=== PATIENT | male | born 1930 | race Caucasian/White ===

== ENCOUNTER 2018-04-06 20:30 | Emergency (ER) | payer MEDICARE, OTHER ==
[2018-04-06 21:23] LABS: ABSOLUTE BASOPHILS # (AUTO) 0.1 10^3/uL (0.0-0.2); ABSOLUTE EOSINOPHILS # (AUTO) 0.5 10^3/uL (0.0-0.6); ABSOLUTE LYMPHOCYTES (AUTO) 1.5 10^3/uL (0.5-4.7); ABSOLUTE MONOCYTES (AUTO) 0.8 10^3/uL (0.1-1.4); ABSOLUTE NEUT (AUTO) 5.8 10^3/uL (1.7-8.2); BASOPHILS % (AUTO) 0.6 % (0-2); EOSINOPHILS % (AUTO) 5.8 % (0-6); HEMOGLOBIN 12.7 g/dL (13.5-17.0); LYMPHOCYTES % (AUTO) 17.6 % (13-45); MEAN CORPUSCULAR HEMOGLOBIN 30.9 pg (27.0-33.4); MEAN CORPUSCULAR HGB CONC 34.5 g/dL (32.0-36.0); MEAN CORPUSCULAR VOLUME 90 fl (80-97); MONOCYTES % (AUTO) 9.6 % (3-13); PLATELET COUNT 155 10^3/uL (150-450); RED BLOOD COUNT 4.12 10^6/uL (4.35-5.55); RED CELL DISTRIBUTION WIDTH 13.7 % (11.5-14.0); SEGMENTED NEUTROPHILS % (AUTO) 66.4 % (42-78); TOTAL CELLS COUNTED % (AUTO) 100 %; WHITE BLOOD COUNT 8.7 10^3/uL (4.0-10.5)
[2018-04-06 21:40] LABS: ANION GAP 11 (5-19); BLOOD UREA NITROGEN 25 mg/dL (7-20); CALCIUM 9.5 mg/dL (8.4-10.2); CARBON DIOXIDE 31 mmol/L (22-30); CHLORIDE 100 mmol/L (98-107); GLUCOSE 183 mg/dL (75-110); POTASSIUM 3.4 mmol/L (3.6-5.0); SODIUM 141.9 mmol/L (137-145)
[2018-04-06 22:03] LABS: ERYTHROCYTE SEDIMENTATION RATE 38 mm/hr (0-20)
--- NOTE | 2018-04-06 22:04 | RADIOLOGY REPORT (SQ) ---
EXAM DESCRIPTION: CT HEAD WITHOUT IV CONTRAST COMPLETED DATE/TME: 04/06/2018 21:04 CLINICAL HISTORY: 87 years, Male, headache COMPARISON: None. TECHNIQUE: 196 Images stored on PACS. All CT scanners at this facility use dose modulation, iterative reconstruction, and/or weight based dosing when appropriate to reduce radiation dose to as low as reasonably achievable (ALARA). [facility]: Dose Right [facility]: CareDose [facility]: Dose Right [facility]: Teradose 4D [facility]: [employer] LIMITATIONS: None. FINDINGS: The globes are intact. Paranasal sinuses and mastoid air cells are unremarkable. No displaced or depressed skull fracture. No intra or extra-axial hemorrhage. CT is limited for evaluation of acute infarct. No CT evidence for large or territorial acute infarct. Diffuse atrophy with small vessel ischemic change. No mass or midline shift IMPRESSION: Atrophy. Small vessel ischemic change. TECHNICAL DOCUMENTATION: Quality ID # 436: Final reports with documentation of one or more dose reduction techniques (e.g., Automated exposure control, adjustment of the mA and/or kV according to patient size, use of iterative reconstruction technique) copyright 2011 [employer]- All Rights Reserved
[2018-04-06] MEDS ORDERED: KETOROLAC TROMETHAMINE INJ/PF 30 MG/1 ML SDV ONE (22:20)
[2018-04-06] MEDS ORDERED: METOCLOPRAMIDE HCL INJ/PF 10 MG/2 ML SDV ONE (22:20)
[2018-04-06] MEDS ORDERED: METOCLOPRAMIDE HCL INJ/PF 10 MG/2 ML SDV IV ONE (22:54)
[2018-04-06] MEDS ORDERED: KETOROLAC TROMETHAMINE INJ/PF 30 MG/1 ML SDV IV ONE (22:54)
[2018-04-06] MEDS ORDERED: PREDNISONE 20 MG TABLET PO ONE (22:54)
--- NOTE | 2018-04-06 22:55 | ER Document Report ---
ED General - General Chief Complaint: Headache >24 hrs old Stated Complaint: HEADACHE Time Seen by Provider: 04/06/18 21:03 Primary Care Provider: DALIA PITTS MD [Primary Care Provider] - 04/08/18 Notes: Patient is an 87-year-old male with a past medical history of dementia, hypertension, atrial fibrillation, presents complaining of 2-3 days of progressively worsening pain to the right side of his head as well as associated blurring of vision. Symptoms started gradually, have been progressively worsening over that period of time. Nothing seems to improve or worsen the patient's symptoms. He has not seen his general physician regarding today's concerns. No history of similar symptoms in the past. Pain is described as a stabbing, aching, severe pain to the right temporal area of his scalp. TRAVEL OUTSIDE OF THE [place] IN LAST 30 DAYS: No - Related Data Allergies/Adverse Reactions: No Known Allergies Allergy (Verified 03/24/13 11:41) Past Medical History - General Information source: Patient, Relative - Social History Smoking Status: Never Smoker Frequency of alcohol use: None Drug Abuse: None Lives with: Family Family History: Reviewed & Not Pertinent Patient has suicidal ideation: No Patient has homicidal ideation: No - Past Medical History Cardiac Medical History: Reports: Hx Heart Attack, Hx Hypertension Endocrine Medical History: Reports: Hx Diabetes Mellitus Type 2 Renal/ Medical History: Denies: Hx Peritoneal Dialysis Past Surgical History: Reports: Hx Cardiac Catheterization, Hx Cardiac Surgery - Immunizations Hx Diphtheria, Pertussis, Tetanus Vaccination: Yes Hx Pneumococcal Vaccination: 09/12/10 Review of Systems - Review of Systems Notes: Constitutional: Negative for fever. HENT: Negative for sore throat. Eyes: Positive for blurring vision of the right eye. Cardiovascular: Negative for chest pain. Respiratory: Negative for shortness of breath. Gastrointestinal: Negative for abdominal pain, vomiting or diarrhea. Genitourinary: Negative for dysuria. Musculoskeletal: Negative for back pain. Skin: Negative for rash. Neurological: Positive for headache 10 point ROS negative except as marked above and in HPI. Physical Exam - Vital signs Vitals: Temp Pulse Ox 98.2 F 97 04/06/18 20:56 04/06/18 20:56 Interpretation: Normal Notes: PHYSICAL EXAMINATION: GENERAL: Appears moderately uncomfortable but in no acute distress HEAD: Atraumatic, normocephalic. EYES: Pupils equal round and reactive to light, extraocular movements intact, sclera anicteric, conjunctiva are normal. ENT: nares patent, oropharynx clear without exudates. Moist mucous membranes. NECK: Normal range of motion, supple without lymphadenopathy LUNGS: Breath sounds clear to auscultation bilaterally and equal. No wheezes rales or rhonchi. HEART: Irregularly irregular rate and rhythm without murmurs ABDOMEN: Soft, nontender, normoactive bowel sounds. No guarding, no rebound. No masses appreciated. EXTREMITIES: Normal range of motion, no pitting or edema. No cyanosis. NEUROLOGICAL: Face symmetric. Tongue protrudes midline. Extraocular motions intact. Pupils are 2 mm and equally reactive. Normal speech. 5 out of 5 strength in both the distal and proximal upper and lower extremities bilaterally. Sensation is grossly intact throughout. Finger to nose testing normal. Pronator drift normal. PSYCH: Alert, oriented only to person SKIN: Warm, Dry, normal turgor, pain along palpation of the right temporal artery Course - Re-evaluation Re-evalutation: 04/06/18 22:57 Patient presents with signs and symptoms most consistent with acute giant cell arteritis complaining of pain over the right temporal artery with associated blurring of vision of the right eye. ESR is elevated. Patient is at elevated risk given his advanced age. CT the head otherwise unremarkable. He has no focal neurologic deficits on exam. Patient has been started on prednisone, family advised about the probability that his blood sugars will become dramatically elevated while on this medication. At this time will discharge with return precautions and follow-up recommendations. Verbal discharge instructions given a the bedside and opportunity for questions given. Medication warnings reviewed. Patient is in agreement with this plan and has verbalized understanding of return precautions and the need for primary care follow-up in the next 24-72 hours. - Vital Signs Vital signs: Temp Pulse Resp BP Pulse Ox 98.2 F 20 114/88 H 99 04/06/18 23:23 04/06/18 23:01 04/06/18 23:01 04/06/18 23:01 - Laboratory Result Diagrams: 04/06/18 21:10 04/06/18 21:10 Laboratory results interpreted by me: 04/06/18 04/06/18 21:10 21:10 RBC 4.12 L Hgb 12.7 L Hct 37.0 L ESR 38 H Potassium 3.4 L Carbon Dioxide 31 H BUN 25 H Est GFR (Non-Af Amer) 59 L Glucose 183 H C-Reactive Protein 13.0 H - Diagnostic Test Radiology reviewed: Image reviewed, Reports reviewed Radiology results interpreted by me: 04/06/18 22:57 CT head: No acute intracranial bleed or mass Discharge - Discharge Clinical Impression: Temporal giant cell arteritis Headache Qualifiers: Headache type: unspecified Headache chronicity pattern: acute headache Intractability: not intractable Qualified Code(s): R51 - Headache Condition: Good Disposition: HOME, SELF-CARE Additional Instructions: Your symptoms are suggestive of something called temporal arteritis. You need to follow-up with your primary care doctor for consideration of biopsy of the temporal artery for definitive diagnosis. Your being started on steroids. Please take as directed. Be aware that this will raise her blood sugars temporarily while you are on this medication. Please return if you develop worsening headache, worsening of your blurred vision in the right eye, pass out, persistent vomiting, weakness, numbness or any other symptoms that are worrisome to you. Prescriptions: Prednisone [Deltasone 20 mg Tablet] 2 tab PO DAILY 7 Days tablet Referrals: DALIA PITTS MD [Primary Care Provider] - 04/08/18
[2018-04-06 23:23] VITALS: BP 114/88
--- NOTE | 2018-04-07 08:59 | EKG REPORT ---
SEVERITY:- ABNORMAL ECG - ATRIAL FIBRILLATION, V-RATE 55-[address]-T CHANGES , DIFFUSE LEADS : Confirmed by: Paulie Krishna MD 07-Apr-2018 08:58:52
== END 2018-04-06 23:23 | disposition home or self-care (01) ==
LOC: ER 20:30
DX: M31.6 Other giant cell arteritis (principal); R51 Headache; H53.8 Other visual disturbances; I10 Essential (primary) hypertension; E11.9 Type 2 diabetes mellitus without complications
CPT/HCPCS: 93005; 99284; 96374; 96375; 36415; 85025; 85652; 86140; 80048; 70450; 93010; J1885; J2765; A9270; J7512

== ENCOUNTER 2018-04-24 10:43 | Emergency (ER) | payer MEDICARE, OTHER ==
--- NOTE | 2018-04-24 12:15 | RADIOLOGY REPORT (SQ) ---
EXAM DESCRIPTION: CHEST SINGLE VIEW COMPLETED DATE/TIME: 04/24/2018 11:56 am REASON FOR STUDY: Right chest pain and short of breath COMPARISON: None. EXAM PARAMETERS: NUMBER OF VIEWS: One view. TECHNIQUE: Single frontal radiographic view of the chest acquired. RADIATION DOSE: NA LIMITATIONS: None. FINDINGS: LUNGS AND PLEURA: Right lung clear. Left hemidiaphragm and adjacent left base suboptimall y visualized. Unclear whether this is related to technique or pathology at this level. Repeat kg ble chest may be a consideration or PA and lateral if the patient is able MEDIASTINUM AND HILAR STRUCTURES: No masses. Contour normal. HEART AND VASCULAR STRUCTURES: Heart normal in size. Normal vasculature. BONES: No acute findings. HARDWARE: None in the chest. OTHER: No other significant finding. IMPRESSION: No definite abnormality to explain shortness of breath however the left base and hemidia phragm suboptimally visualized. Repeat portable or PA and lateral would be helpful. TECHNICAL DOCUMENTATION: JOB ID: [id number] [employer]- All Rights Reserved Reading location - IP/workstation name: [email or web address]
[2018-04-24 12:20] LABS: ABSOLUTE EOSINOPHILS # (AUTO) 0.2 10^3/uL (0.0-0.6); ABSOLUTE LYMPHOCYTES (AUTO) 2.1 10^3/uL (0.5-4.7); ABSOLUTE MONOCYTES (AUTO) 0.8 10^3/uL (0.1-1.4); ABSOLUTE NEUT (AUTO) 6.6 10^3/uL (1.7-8.2); BASOPHILS % (AUTO) 0.4 % (0-2); HEMATOCRIT 41.3 % (37.9-51.0); HEMOGLOBIN 14.1 g/dL (13.5-17.0); LYMPHOCYTES % (AUTO) 21.4 % (13-45); MEAN CORPUSCULAR HEMOGLOBIN 31.2 pg (27.0-33.4); MEAN CORPUSCULAR HGB CONC 34.3 g/dL (32.0-36.0); MEAN CORPUSCULAR VOLUME 91 fl (80-97); MONOCYTES % (AUTO) 8.3 % (3-13); PLATELET COUNT 136 10^3/uL (150-450); RED BLOOD COUNT 4.54 10^6/uL (4.35-5.55); SEGMENTED NEUTROPHILS % (AUTO) 67.9 % (42-78); TOTAL CELLS COUNTED % (AUTO) 100 %; WHITE BLOOD COUNT 9.7 10^3/uL (4.0-10.5)
[2018-04-24 12:22] LABS: INTERNATIONAL RATION (INR) 1.02; PROTHROMBIN TIME 13.9 SEC (11.4-15.4)
[2018-04-24 12:27] LABS: ALANINE AMINOTRANSFERASE 46 U/L (21-72); ALBUMIN 4.1 g/dL (3.5-5.0); ALKALINE PHOSPHATASE 47 U/L (38-126); ANION GAP 11 (5-19); ASPARTATE AMINO TRANSFERASE 23 U/L (17-59); BILIRUBIN,DIRECT 0.3 mg/dL (0.0-0.4); BLOOD UREA NITROGEN 26 mg/dL (7-20); CALCIUM 9.7 mg/dL (8.4-10.2); CARBON DIOXIDE 30 mmol/L (22-30); CHLORIDE 95 mmol/L (98-107); CREATINE KINASE 33 U/L (55-170); GLUCOSE 192 mg/dL (75-110); POTASSIUM 3.6 mmol/L (3.6-5.0); SODIUM 135.9 mmol/L (137-145); TOTAL PROTEIN 6.4 g/dL (6.3-8.2)
[2018-04-24 12:40] LABS: CREATINE KINASE MB 1.97 ng/mL (<4.55); TROPONIN I < 0.012 ng/mL
--- NOTE | 2018-04-24 13:15 | EKG REPORT ---
SEVERITY:- ABNORMAL ECG - ATRIAL FIBRILLATION NONSPECIFIC ST-T CHANGES DIFFUSE : Confirmed by: Paulie Krishna MD 24-Apr-2018 13:14:27
[2018-04-24 16:05] VITALS: BP 117/77
--- NOTE | 2018-04-24 16:22 | ER Document Report ---
ED General - General Chief Complaint: Tremor Stated Complaint: SHAKING Time Seen by Provider: 04/24/18 11:43 Primary Care Provider: DALIA LAGOS MD [Primary Care Provider] - Follow up as needed Notes: Patient was brought in by rescue squad after having some chest pain with some difficulty breathing. He was at the office of Dr. Li, a local order processing manager, ceo and founder when he had the pain. He says that the pain just "hit me". He has nitroglycerin tablets and took warned that it seemed to resolve the chest pain, but he was sent here anyway. Patient has been having pain in the right side of his head for a couple of weeks. He was seen here on April 13 and felt to have a giant cell arteritis and was followed up by his primary care physician, Dr. Lagos, who referred the patient to see Dr. Li. Dr. Li's notes indicate that he was in agreement that the patient had a right temporal giant cell arteritis and continued the patient on his 20 mg of prednisone daily. Patient has been on nitroglycerin for chest pains for many years. Seldom takes them. TRAVEL OUTSIDE OF THE [place] IN LAST 30 DAYS: No - Related Data Allergies/Adverse Reactions: No Known Allergies Allergy (Verified 03/24/13 11:41) Past Medical History - Social History Smoking Status: Never Smoker Family History: Reviewed & Not Pertinent Patient has suicidal ideation: No Patient has homicidal ideation: No - Past Medical History Cardiac Medical History: Reports: Hx Atrial Fibrillation - On Eliquis., Hx Heart Attack, Hx Hypertension, Other - CABG and stents Neurological Medical History: Reports: Other - Dementia. Endocrine Medical History: Reports: Hx Diabetes Mellitus Type 2 Past Surgical History: Reports: Hx Cardiac Catheterization, Hx Cardiac Surgery - Immunizations Hx Diphtheria, Pertussis, Tetanus Vaccination: Yes Hx Pneumococcal Vaccination: 09/12/10 Review of Systems - Review of Systems Notes: REVIEW OF SYSTEMS: CONSTITUTIONAL : Denies fever. EENT: Denies eye, ear, nose or mouth or throat pain or other symptoms. CARDIOVASCULAR: See HPI. RESPIRATORY: Denies cough, chest congestion, but had some temporary shortness of breath. GASTROINTESTINAL: Denies abdominal pain or nausea, vomiting, or diarrhea. GENITOURINARY: Denies difficulty or painful urinating, urinary frequency, blood in urine. MUSCULOSKELETAL: Denies back or neck pain. Denies joint pain or swelling. SKIN: Denies rash or skin lesions. NEUROLOGICAL: Denies LOC. Is hard of hearing and also has some degree of dementia. Has had a right-sided headache see HPI. Denies sensory loss or motor deficits. ALL OTHER SYSTEMS REVIEWED AND NEGATIVE. Physical Exam - Vital signs Vitals: Resp BP Pulse Ox 15 121/66 100 04/24/18 11:09 04/24/18 11:09 04/24/18 11:09 Interpretation: Normal Notes: PHYSICAL EXAMINATION: GENERAL: Well-appearing, in no acute distress. Awake and alert. Hard of hearing. Seems to be a little bit confused and probably has some degree of dementia. HEAD: Atraumatic, normocephalic. EYES: Pupils equal round and reactive to light, extraocular movements intact. ENT: oropharynx clear without exudates. Moist mucous membranes. NECK: Normal range of motion, supple. LUNGS: Breath sounds clear and equal bilaterally. HEART: Regular rate and rhythm without murmurs. Does not have any chest pain at this time. ABDOMEN: Soft, nontender. No guarding or rebound. No masses. BACK: No tenderness throughout entire back. EXTREMITIES: Normal range of motion without pain. NEUROLOGICAL: Normal speech, gait not tested. Normal sensory, motor, and reflex exams. Awake, alert, not sure if oriented appropriately. PSYCH: Normal mood, normal affect. SKIN: Warm, dry, no rashes. Course - Re-evaluation Re-evalutation: 04/24/18 19:09 Patient remained asymptomatic throughout his stay in the department. I did 2 sets of troponins, both of them negative. I do not think this patient's chest pain was cardiac, but even if so, he does not have any apparent injury to the myocardium. - Vital Signs Vital signs: Temp Pulse Resp BP Pulse Ox 97.3 F 18 117/77 96 04/24/18 11:17 04/24/18 16:00 04/24/18 16:00 04/24/18 16:00 - Laboratory Result Diagrams: 04/24/18 11:10 04/24/18 11:10 Laboratory results interpreted by me: 04/24/18 04/24/18 11:10 11:10 Plt Count 136 L Sodium 135.9 L Chloride 95 L BUN 26 H Glucose 192 H Creatine Kinase 33 L - EKG Interpretation by Me Rate: Normal Rhythm: A.Fib Additional EKG results interpreted by me: 04/24/18 19:[address] changes. No acute changes. Discharge - Discharge Clinical Impression: Chest pain, Head pain, Atrial fibrillation Condition: Stable Disposition: HOME, SELF-CARE Additional Instructions: CHEST PAIN OF UNCLEAR CAUSE: The exact cause of your chest pain isn't clear. Fortunately, there is no evidence of a dangerous medical condition. Further testing may be required to find the source of the pain. Most often, we find that this pain is coming from the chest wall -- the muscles or rib joints in the chest. But chest pain can come from the lung and lung lining, the esophagus, the heart valves or heart lining, and even the stomach or gallbladder. Rest. Eat lightly until the pain is gone. We may prescribe medicine for pain and inflammation. You should call the physician immediately if the pain radiates to the shoulder, jaw or arms; if you start to run a fever or develop a cough; or if you develop shortness of breath, or other new or alarming symptoms. NORMAL EXAM AND WORKUP: At this time, your examination and workup show no significant abnormality. No significant abnormal physical findings were noted. All laboratory, EKG, and imaging (x-ray, CT scans, ultrasound) studies that were ordered show no significant abnormality. Although your examination and all studies that were ordered showed no significant abnormal finding, there are no examinations and no studies that are 100% accurate. There is always the possibility that some abnormality could exist and not be detected with physical examination or within the limits and capabilities of laboratory and other studies. You should return or follow up as you were instructed on your visit today for further evaluation if your symptoms do not resolve. ANGINA EPISODE: Your physician has diagnosed the pain you experienced as an episode of angina. Angina occurs when a portion of the heart muscle temporarily lacks oxygen. It does not cause any permanent heart damage, but serves as a warning. Hospitalization is not necessary now. Evaluation of your cardiac condition, and medical therapy for angina will be necessary. It's important you be sure to keep all appointments and take medication exactly as prescribed. Angina is usually treated with a type of "nitrate" medication. This is available as ointment, pills, or sublingual (under the tongue) tablets. Depending on your clinical situation, other medications may be added to help control angina. These may include beta blockers or calcium blockers. If episodes of angina are occurring with increased frequency, or if chest pain lasts longer than 15 minutes or does not respond to nitroglycerin, you must seek emergency medical care immediately. NITRATES: Nitroglycerin and related longer-acting nitrate medications are used to prevent or treat attacks of angina. These medicines dilate blood vessels, decreasing the work of the heart, and improving its supply of oxygen. Many different forms are available, including sublingual tablets (used under the tongue), sprays, skin patches, and long-acting pills. If the particular form of medication you have been given is not working well for you, contact your doctor. Long-acting forms: Take exactly as prescribed. Sudden stopping of medication can provoke increased attacks. Sublingual tabs or spray: A headache will usually occur with use. Sit or lie while waiting for the pain to go away. If angina doesn't respond to three doses (five minutes apart), call for emergency assistance. FOLLOW-UP CARE: If you have been referred to a physician for follow-up care, call the physicians office for an appointment as you were instructed or within the next two days. If you experience worsening or a significant change in your symptoms, notify the physician immediately or return to the Emergency Department at any time for re-evaluation. Referrals: DALIA LAGOS MD [Primary Care Provider] - Follow up as needed
== END 2018-04-24 16:32 | disposition home or self-care (01) ==
LOC: ER 10:43
DX: R07.9 Chest pain, unspecified (principal); M31.6 Other giant cell arteritis; R06.02 Shortness of breath; I48.91 Unspecified atrial fibrillation; R51 Headache; I10 Essential (primary) hypertension; I25.2 Old myocardial infarction; E11.9 Type 2 diabetes mellitus without complications; Z95.5 Presence of coronary angioplasty implant and graft; Z95.1 Presence of aortocoronary bypass graft
CPT/HCPCS: 36415; 71045; 80053; 82550; 82553; 84484; 85025; 85610; 93005; 93010; 99285

== ENCOUNTER 2018-05-08 09:58 | Observation (INO) | payer MEDICARE, OTHER ==
[2018-05-08 10:45] LABS: ABSOLUTE LYMPHOCYTES (AUTO) 0.5 10^3/uL (0.5-4.7); ABSOLUTE MONOCYTES (AUTO) 0.6 10^3/uL (0.1-1.4); ABSOLUTE NEUT (AUTO) 5.7 10^3/uL (1.7-8.2); BASOPHILS % (AUTO) 0.1 % (0-2); EOSINOPHILS % (AUTO) 0.3 % (0-6); HEMATOCRIT 44.1 % (37.9-51.0); HEMOGLOBIN 15.1 g/dL (13.5-17.0); LYMPHOCYTES % (AUTO) 6.8 % (13-45); MEAN CORPUSCULAR HEMOGLOBIN 30.8 pg (27.0-33.4); MEAN CORPUSCULAR HGB CONC 34.2 g/dL (32.0-36.0); MEAN CORPUSCULAR VOLUME 90 fl (80-97); MONOCYTES % (AUTO) 8.9 % (3-13); PLATELET COUNT 119 10^3/uL (150-450); SEGMENTED NEUTROPHILS % (AUTO) 83.9 % (42-78); TOTAL CELLS COUNTED % (AUTO) 100 %; WHITE BLOOD COUNT 6.8 10^3/uL (4.0-10.5)
[2018-05-08] MEDS ORDERED: NORMAL SALINE 500 ML IV ONE (10:45)
[2018-05-08 10:49] LABS: INTERNATIONAL RATION (INR) 1.04; PROTHROMBIN TIME 14.1 SEC (11.4-15.4)
--- NOTE | 2018-05-08 10:59 | RADIOLOGY REPORT (SQ) ---
EXAM DESCRIPTION: HIP BILATERAL COMPLETED DATE/TIME: 05/08/2018 10:51 am REASON FOR STUDY: fall COMPARISON: None. NUMBER OF VIEWS: Two views TECHNIQUE: AP pelvis and additional frog-leg view of both hips. LIMITATIONS: None. FINDINGS: MINERALIZATION: Normal. HIPS: No acute fracture or dislocation. Joint space narrowing with sclerosis and small osteophytes. No worrisome bone lesions. PELVIS AND SACRUM: No acute fracture or dislocation. No worrisome bone lesions. PUBIS AND ISCHIUM: No acute fracture. LOWER LUMBAR SPINE: Degenerative changes. No acute findings as visualized. SOFT TISSUES: No findings. OTHER: No other significant finding. IMPRESSION: DEGENERATIVE CHANGES IN THE HIPS. NO ACUTE TRAUMATIC FINDINGS. TECHNICAL DOCUMENTATION: JOB ID: [id number] [employer]- All Rights Reserved Reading location - IP/workstation name: [email or web address]
[2018-05-08 11:00] LABS: ALANINE AMINOTRANSFERASE 32 U/L (21-72); ALBUMIN 4.2 g/dL (3.5-5.0); ALKALINE PHOSPHATASE 49 U/L (38-126); ANION GAP 11 (5-19); ASPARTATE AMINO TRANSFERASE 24 U/L (17-59); BILIRUBIN,DIRECT 0.5 mg/dL (0.0-0.4); BILIRUBIN,TOTAL 1.4 mg/dL (0.2-1.3); BLOOD UREA NITROGEN 27 mg/dL (7-20); CALCIUM 10.2 mg/dL (8.4-10.2); CARBON DIOXIDE 31 mmol/L (22-30); CHLORIDE 96 mmol/L (98-107); CREATINE KINASE 43 U/L (55-170); GLUCOSE 255 mg/dL (75-110); LIPASE 118.4 U/L (23-300); POTASSIUM 3.9 mmol/L (3.6-5.0); SODIUM 138.4 mmol/L (137-145)
--- NOTE | 2018-05-08 11:07 | RADIOLOGY REPORT (SQ) ---
EXAM DESCRIPTION: CT HEAD WITHOUT COMPLETED DATE/TIME: 05/08/2018 10:56 am REASON FOR STUDY: fall COMPARISON: 04/06/2018 TECHNIQUE: Axial images acquired through the brain without intravenous contrast. Images reviewed wi th bone, brain and subdural windows. Additional sagittal and coronal reconstructions were generated. Images stored on PACS. All CT scanners at this facility use dose modulation, iterative reconstruction, and/or weight based d osing when appropriate to reduce radiation dose to as low as reasonably achievable (ALARA). [facility]: Dose Right [facility]: CareDose [facility]: Dose Right [facility]: Teradose 4D [facility]: [email or web address] RADIATION DOSE: CT Rad equipment meets quality standard of care and radiation dose reduction techniq ues were employed. CTDIvol: 53.2 mGy. DLP: 1097 mGy-cm. mGy. LIMITATIONS: None. FINDINGS: VENTRICLES: Normal size and contour. CEREBRUM: No masses. No hemorrhage. No midline shift. No evidence for acute infarction. Few scatte red areas of low density in the white matter most likely chronic small vessel ischemic changes. CEREBELLUM: No masses. No hemorrhage. No alteration of density. No evidence for acute infarction. EXTRAAXIAL SPACES: No fluid collections. No masses. ORBITS AND GLOBE: No intra- or extraconal masses. Normal contour of globe without masses. CALVARIUM: No fracture. PARANASAL SINUSES: There is new mucosal thickening and air-fluid level of the left maxillary sinus an d ethmoid air cells. SOFT TISSUES: No mass or hematoma. OTHER: No other significant finding. IMPRESSION: 1. No acute intracranial pathology. Small vessel white matter disease. 2. There is new mucosal thickening and air-fluid level of the left maxillary sinus and ethmoid air ce lls. Correlate for evidence of acute sinusitis, trauma less likely. EVIDENCE OF ACUTE STROKE: NO. COMMENT: Quality ID # 436: Final reports with documentation of one or more dose reduction techniques (e.g., Automated exposure control, adjustment of the mA and/or kV according to patient size, use of iterative reconstruction technique) TECHNICAL DOCUMENTATION: JOB ID: [id number] [employer]- All Rights Reserved Reading location - IP/workstation name: [email or web address]
--- NOTE | 2018-05-08 11:09 | RADIOLOGY REPORT (SQ) ---
EXAM DESCRIPTION: CHEST SINGLE VIEW COMPLETED DATE/TIME: 05/08/2018 11:00 am REASON FOR STUDY: sob COMPARISON: Chest films 04/24/2018, 03/24/2013 CT chest 04/28/2007 EXAM PARAMETERS: NUMBER OF VIEWS: One view. TECHNIQUE: Single frontal radiographic view of the chest acquired. RADIATION DOSE: NA LIMITATIONS: None. FINDINGS: LUNGS AND PLEURA: No opacities, masses or pneumothorax. No pleural effusion. MEDIASTINUM AND HILAR STRUCTURES: No masses. Contour normal. HEART AND VASCULAR STRUCTURES: No cardiomegaly. Old sternotomy for CABG. BONES: No acute findings. HARDWARE: None in the chest. OTHER: Question old shrapnel over the anterior right 5th rib IMPRESSION: Old sternotomy for CABG. No acute findings TECHNICAL DOCUMENTATION: JOB ID: [id number] [employer]- All Rights Reserved Reading location - IP/workstation name: [email or web address]
[2018-05-08 11:10] LABS: CREATINE KINASE MB 0.7 ng/mL (<4.55); TROPONIN I 0.02 ng/mL
[2018-05-08] MEDS ORDERED: NORMAL SALINE 1000 ML 1,000 ML IV ONE (11:52)
[2018-05-08 12:22] LABS: APPEARANCE,URINE CLEAR; BILIRUBIN,URINE NEGATIVE (NEGATIVE); COLOR,URINE YELLOW; GLUCOSE, URINE >=500 mg/dL (NEGATIVE); KETONES,URINE TRACE mg/dL (NEGATIVE); LEUKOCYTE ESTERASE,URINE NEGATIVE (NEGATIVE); NITRITE,URINE NEGATIVE (NEGATIVE); PROTEIN,URINE 100 mg/dL (NEGATIVE); URINE SPECIFIC GRAVITY 1.023
[2018-05-08] MEDS ORDERED: METOPROLOL TARTRATE 50 MG TABLET PO ONE (13:17)
[2018-05-08] MEDS ORDERED: CLONIDINE HCL 0.1 MG TABLET PO ONE (13:17)
--- NOTE | 2018-05-08 13:17 | ER Document Report ---
ED General - General Chief Complaint: Fall Stated Complaint: WEAKNESS Time Seen by Provider: 05/08/18 10:09 Primary Care Provider: DALIA PITTS MD [Primary Care Provider] - Follow up as needed TRAVEL OUTSIDE OF THE [place] IN LAST 30 DAYS: No - HPI Patient complains to provider of: Fall weakness Notes: Patient coming in for evaluation of fall and weakness. Patient is very hard of hearing most of the HPI is obtained from his who later presents. states over the last month she is noticed increased weakness and cognitive decline worse in the last week. 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 States that he has followed up with a neurologist however no biopsy or other definitive testing for temporal arteritis was performed. Patient has continued on prednisone since that time. Patient is currently on 20 mg of prednisone daily. states that this morning patient fell down on the bathroom and she could not get him up nor could the patient get up himself. States that the patient does have a walker and cane at home. Otherwise denies fevers chills nausea vomiting diarrhea. Patient has been compliant with his medications. - Related Data Allergies/Adverse Reactions: No Known Allergies Allergy (Verified 03/24/13 11:41) Past Medical History - Social History Smoking Status: Never Smoker Drug Abuse: None Family History: Reviewed & Not Pertinent Patient has suicidal ideation: No Patient has homicidal ideation: No - Past Medical History Cardiac Medical History: Reports: Hx Atrial Fibrillation - On Eliquis., Hx Heart Attack, Hx Hypertension Endocrine Medical History: Reports: Hx Diabetes Mellitus Type 2 Renal/ Medical History: Denies: Hx Peritoneal Dialysis Past Surgical History: Reports: Hx Cardiac Catheterization, Hx Cardiac Surgery - Immunizations Hx Diphtheria, Pertussis, Tetanus Vaccination: Yes Hx Pneumococcal Vaccination: 09/12/10 Review of Systems - Review of Systems Constitutional: Weakness EENT: No symptoms reported Cardiovascular: No symptoms reported Respiratory: No symptoms reported Gastrointestinal: No symptoms reported Genitourinary: No symptoms reported Male Genitourinary: No symptoms reported Musculoskeletal: No symptoms reported Skin: No symptoms reported Hematologic/Lymphatic: No symptoms reported Neurological/Psychological: Other - Change in mental status -: Yes All other systems reviewed and negative Physical Exam - Vital signs Vitals: Resp Pulse Ox 20 95 05/08/18 10:17 05/08/18 10:17 Interpretation: Normal - General General appearance: Appears well, Alert - HEENT Head: Normocephalic, Atraumatic Eyes: Normal Pupils: PERRL - Respiratory Respiratory status: No respiratory distress Chest status: Nontender Breath sounds: Normal Chest palpation: Normal - Cardiovascular Rhythm: Regular Heart sounds: Normal auscultation Murmur: No - Abdominal Inspection: Normal Distension: No distension Bowel sounds: Normal Tenderness: Nontender Organomegaly: No organomegaly - Back Back: Normal, Nontender - Extremities General upper extremity: Normal inspection, Nontender, Normal color, Normal ROM, Normal temperature General lower extremity: Normal inspection, Nontender, Normal color, Normal ROM, Normal temperature, Normal weight bearing. No: Lexi's sign - Neurological Neuro grossly intact: Yes Cognition: Normal Orientation: AAOx4 Rosman Coma Scale Eye Opening: Spontaneous Rosman Coma Scale Verbal: Oriented Rosman Coma Scale Motor: Obeys Commands Suzanne Coma Scale Total: 15 Speech: Normal Motor strength normal: LUE, RUE, LLE, RLE Sensory: Normal - Psychological Associated symptoms: Normal affect, Normal mood - Skin Skin Temperature: Warm Skin Moisture: Dry Skin Color: Normal Course - Vital Signs Vital signs: Temp Pulse Resp BP Pulse Ox 98.4 F 28 H 152/104 H 93 05/08/18 13:01 05/08/18 13:01 05/08/18 13:01 05/08/18 13:01 - Laboratory Result Diagrams: 05/08/18 10:20 05/08/18 10:20 Laboratory results interpreted by me: 05/08/18 05/08/18 05/08/18 10:20 10:20 10:20 Plt Count 119 L Seg Neutrophils % 83.9 H Lymphocytes % 6.8 L Chloride 96 L Carbon Dioxide 31 H BUN 27 H Glucose 255 H Lactic Acid 2.9 H Total Bilirubin 1.4 H Direct Bilirubin 0.5 H Creatine Kinase 43 L Urine Protein Urine Glucose (UA) Urine Ketones Urine Blood Urine Urobilinogen 05/08/18 11:50 Plt Count Seg Neutrophils % Lymphocytes % Chloride Carbon Dioxide BUN Glucose Lactic Acid Total Bilirubin Direct Bilirubin Creatine Kinase Urine Protein 100 H Urine Glucose (UA) >=500 H Urine Ketones TRACE H Urine Blood SMALL H Urine Urobilinogen 2.0 H Discharge - Discharge Clinical Impression: Recent diagnosis of temporal arteritis, Hypertensive urgency, CAD status post coronary bypass graft, Debility and deconditioning Type 2 diabetes mellitus Qualifiers: Diabetes mellitus longterm insulin use: without longterm use Diabetes mellitus complication status: without complication Qualified Code(s): E11.9 - Type 2 diabetes mellitus without complications Condition: Good Disposition: HOME, SELF-CARE Referrals: DALIA PITTS MD [Primary Care Provider] - Follow up as needed
--- NOTE | 2018-05-08 13:54 | PDOC H&P ---
History of Present Illness Admission Date/PCP: DALIA PITTS MD History of Present Illness: CAMPOS ALVAREZ is a 87 year old male patient with past medical history of coronary artery disease status post coronary artery bypass graft, hypertension, hyperlipidemia, type 2 diabetes mellitus and deafness presents with chief complaint of physical and mental declining and fall. Since patient is hard of hearing brief history is obtained verbally from the ER attending. Nobody in his room during my encounter. Per ER attending patient declining and is functional capacity as well as mentally. On April 06, 2018 patient had visited [facility] ER for headache and they are attending at that time diagnosed the patient with temporal arteritis is doing ESR of 38 and patient started on p.o. prednisolone. No temporal artery biopsy done. Patient is being followed up by neurologist. There is no report of fever, chills, chest pain. No headache or blurry vision. He CT scan of the head is negative. Further detailed history and review of system is unobtainable. Past Medical History Cardiac Medical History: Reports: Atrial Fibrillation - On Eliquis., Myocardial Infarction, Hypertension Endocrine Medical History: Reports: Diabetes Mellitus Type 2 Past Surgical History Past Surgical History: Reports: Cardiac Catheterization Social History Smoking Status: Never Smoker Frequency of Alcohol Use: None Hx Recreational Drug Use: No - Advance Directive Resuscitation Status: Full Code Family History Family History: Reviewed & Not Pertinent Parental Family History Reviewed: Yes Children Family History Reviewed: Yes Sibling(s) Family History Reviewed.: Yes Medication/Allergy Home Medications: Aspirin [Aspirin 325 mg Tablet] 325 mg PO DAILY 03/24/13 Clonidine HCl [Clonidine HCl ER] 0.1 mg PO Q12 03/24/13 Ezetimibe/Simvastatin [Vytorin 10-80 mg Tablet] 1 each PO QHS 03/24/13 Furosemide [Lasix 40 mg Tablet] 40 mg PO QAM 03/24/13 Gabapentin [Neurontin 300 mg Capsule] 300 mg PO BID 03/24/13 Glimepiride [Amaryl] 2 mg PO BID 03/24/13 Guaifenesin [Robitussin Mucus-Chest Congest] 5 ml PO Q4HP PRN 03/24/13 Hydrochlorothiazide 12.5 mg PO DAILY 03/24/13 Isosorbide Mononitrate [Imdur 60 mg Tablet.er] 60 mg PO DAILY 03/24/13 Lisinopril [Zestril] 20 mg PO BID 03/24/13 Metoprolol Tartrate [Lopressor 100 mg Tablet] 100 mg PO Q12 03/24/13 Naproxen Sodium [Aleve] 220 mg PO DAILY PRN 03/24/13 Nitroglycerin 0.4 mg SL PRN PRN 03/24/13 Potassium Chloride 10 meq PO DAILY 03/24/13 Sitagliptin Phos/Metformin HCl [Janumet 50-1,000 mg Tablet] 1 tab PO BID 03/24/13 Telmisartan [Micardis 80 mg Tablet] 80 mg PO DAILY 03/24/13 Prednisone [Deltasone 20 mg Tablet] 2 tab PO DAILY 7 Days tablet 04/06/18 Allergies/Adverse Reactions: No Known Allergies Allergy (Verified 03/24/13 11:41) Review of Systems ROS unobtainable: Other - Severely hard of hearing Physical Exam Vital Signs: Temp Pulse Resp BP Pulse Ox 98.4 F 28 H 152/104 H 93 05/08/18 13:01 05/08/18 13:01 05/08/18 13:01 05/08/18 13:01 Intake & Output 05/07/18 05/08/18 05/09/18 06:59 06:59 06:59 Intake Total 500 Balance 500 Weight 180 kg General appearance: PRESENT: no acute distress Head exam: PRESENT: atraumatic Eye exam: PRESENT: conjunctiva pink Neck exam: ABSENT: carotid bruit, JVD, lymphadenopathy, thyromegaly Respiratory exam: PRESENT: clear to auscultation last. ABSENT: rales, rhonchi, wheezes Cardiovascular exam: PRESENT: RRR. ABSENT: diastolic murmur, rubs, systolic murmur GI/Abdominal exam: PRESENT: normal bowel sounds, soft. ABSENT: distended, guarding, mass, organolmegaly, rebound, tenderness Neurological exam: PRESENT: alert, awake Results Laboratory Results: 05/08/18 10:20 05/08/18 10:20 05/08/18 05/08/18 05/08/18 10:20 10:20 10:20 WBC 6.8 RBC 4.90 Hgb 15.1 Hct 44.1 MCV 90 MCH 30.8 MCHC 34.2 RDW 14.0 Plt Count 119 L Seg Neutrophils % 83.9 H Lymphocytes % 6.8 L Monocytes % 8.9 Eosinophils % 0.3 Basophils % 0.1 Absolute Neutrophils 5.7 Absolute Lymphocytes 0.5 Absolute Monocytes 0.6 Absolute Eosinophils 0.0 Absolute Basophils 0.0 Sodium 138.4 Potassium 3.9 Chloride 96 L Carbon Dioxide 31 H Anion Gap 11 BUN 27 H Creatinine 1.07 Est GFR ( Amer) > 60 Est GFR (Non-Af Amer) > 60 Glucose 255 H Lactic Acid 2.9 H Calcium 10.2 Magnesium 2.0 Total Bilirubin 1.4 H AST 24 ALT 32 Alkaline Phosphatase 49 Total Protein 7.0 Albumin 4.2 Lipase 118.4 Urine Color Urine Appearance Urine pH Ur Specific [place] Urine Protein Urine Glucose (UA) Urine Ketones Urine Blood Urine Nitrite Ur Leukocyte Esterase Urine WBC (Auto) Urine RBC (Auto) 05/08/18 11:50 WBC RBC Hgb Hct MCV MCH MCHC RDW Plt Count Seg Neutrophils % Lymphocytes % Monocytes % Eosinophils % Basophils % Absolute Neutrophils Absolute Lymphocytes Absolute Monocytes Absolute Eosinophils Absolute Basophils Sodium Potassium Chloride Carbon Dioxide Anion Gap BUN Creatinine Est GFR ( Amer) Est GFR (Non-Af Amer) Glucose Lactic Acid Calcium Magnesium Total Bilirubin AST ALT Alkaline Phosphatase Total Protein Albumin Lipase Urine Color YELLOW Urine Appearance CLEAR Urine pH 6.0 Ur Specific [place] 1.023 Urine Protein 100 H Urine Glucose (UA) >=500 H Urine Ketones TRACE H Urine Blood SMALL H Urine Nitrite NEGATIVE Ur Leukocyte Esterase NEGATIVE Urine WBC (Auto) 0 Urine RBC (Auto) 2 05/08/18 05/08/18 10:20 10:20 Creatine Kinase 43 L CK-MB (CK-2) 0.70 Troponin I 0.020 Impressions: Chest X-Ray 05/08/18 10:16 IMPRESSION: Old sternotomy for CABG. No acute findings Head CT 05/08/18 10:16 IMPRESSION: 1. No acute intracranial pathology. Small vessel white matter disease. 2. There is new mucosal thickening and air-fluid level of the left maxillary sinus and ethmoid air cells. Correlate for evidence of acute sinusitis, trauma less likely. EVIDENCE OF ACUTE STROKE: NO. Hip X-Ray 05/08/18 10:16 IMPRESSION: DEGENERATIVE CHANGES IN THE HIPS. NO ACUTE TRAUMATIC FINDINGS. Assessment and Plan - Diagnosis (1) Hypertensive urgency Is this a current diagnosis for this admission?: Yes Plan: Patient did not get his morning dose of antihypertensive agents. He has been on metoprolol and clonidine. We will restart all his medication (2) Debility and deconditioning Is this a current diagnosis for this admission?: Yes Plan: I will consult PT and follow the recommendation. (3) Type 2 diabetes mellitus Is this a current diagnosis for this admission?: Yes Plan: Patient has been on Janumet. I will start him also on sliding scale. (4) Hyperlipidemia Qualifiers: Hyperlipidemia type: unspecified Qualified Code(s): E78.5 - Hyperlipidemia, unspecified Is this a current diagnosis for this admission?: Yes Plan: Continue his home medication. (5) CAD status post coronary bypass graft Is this a current diagnosis for this admission?: Yes Plan: No anginal symptoms. Continue his home medications. (6) Recent diagnosis of temporal arteritis Is this a current diagnosis for this admission?: Yes Plan: Continue his prednisone 40 mg p.o. daily.
[2018-05-08] MEDS ORDERED: PROMETHAZINE HCL 25 MG TABLET PO PRN (13:55)
[2018-05-08] MEDS: PREDNISONE 20 MG TABLET PO SCH (15:02)
[2018-05-08] MEDS: ACETAMINOPHEN 325 MG TABLET PO PRN (15:02)
[2018-05-08] MEDS: DOCUSATE SODIUM 100 MG CAPSULE PO SCH (15:05)
[2018-05-08] MEDS: ENOXAPARIN SODIUM INJ 40 MG/0.4 ML DISP.SYRIN SUBCUT SCH (15:08)
--- NOTE | 2018-05-08 21:26 | EKG REPORT ---
SEVERITY:- ABNORMAL ECG - ATRIAL FIBRILLATION, V-RATE 80-133 LVH WITSECONDARY REPOL ABNRM : Confirmed by: Radha Pena MD 08-May-2018 21:25:59
[2018-05-08] MEDS ORDERED: INSULIN LISPRO 100 UNIT/ML 3 ML VIAL SUBCUT ONE (23:00)
[2018-05-08] MEDS: CLONIDINE HCL 0.1 MG TABLET PO SCH (23:19)
[2018-05-08] MEDS: FAMOTIDINE 20 MG TABLET PO SCH (23:20)
[2018-05-08] MEDS: METOPROLOL TARTRATE 50 MG TABLET PO SCH (23:20)
[2018-05-09] MEDS: ACETAMINOPHEN 325 MG TABLET PO PRN (06:16)
[2018-05-09] MEDS: PREDNISONE 20 MG TABLET PO SCH (10:04)
[2018-05-09] MEDS: CLONIDINE HCL 0.1 MG TABLET PO SCH (10:04)
[2018-05-09] MEDS: DOCUSATE SODIUM 100 MG CAPSULE PO SCH (10:04)
[2018-05-09] MEDS: FAMOTIDINE 20 MG TABLET PO SCH (10:04)
[2018-05-09] MEDS: METOPROLOL TARTRATE 50 MG TABLET PO SCH (10:04)
[2018-05-09] MEDS: ENOXAPARIN SODIUM INJ 40 MG/0.4 ML DISP.SYRIN SUBCUT SCH (10:05)
[2018-05-09] MEDS ORDERED: DEXTROSE 50%-WATER 25 GM/50 ML DISP.SYRIN IV PRN ×2 (11:44)
[2018-05-09] MEDS ORDERED: GLUCAGON,HUMAN RECOMB 1 MG INJ IM PRN (11:44)
[2018-05-09] MEDS ORDERED: DEXTROSE 40% GEL 15 GM TUBE PO PRN ×2 (11:44)
--- NOTE | 2018-05-09 13:44 | PDOC DISCHARGE SUMMARY ---
General - Admit/Disc Date/PCP Admission Date/Primary Care Provider: 05/08/18 15:26 DALIA PITTS MD Discharge Date: 05/09/18 - Discharge Diagnosis (1) CAD status post coronary bypass graft Is this a current diagnosis for this admission?: Yes (2) Debility and deconditioning Is this a current diagnosis for this admission?: Yes (3) Hyperlipidemia Is this a current diagnosis for this admission?: Yes (4) Hypertensive urgency Is this a current diagnosis for this admission?: Yes (5) Recent diagnosis of temporal arteritis Is this a current diagnosis for this admission?: Yes (6) Type 2 diabetes mellitus Is this a current diagnosis for this admission?: Yes - Additional Information Resuscitation Status: Full Code Discharge Diet: Diabetic Discharge Activity: Activity As Tolerated, Balance Activity w/Rest, No Driving Home Medications: Furosemide [Lasix 40 mg Tablet] 40 mg PO QAM 03/24/13 Gabapentin [Neurontin 300 mg Capsule] 300 mg PO Q12 03/24/13 Glimepiride [Amaryl] 2 mg PO Q12 03/24/13 Metoprolol Tartrate [Lopressor 100 mg Tablet] 100 mg PO Q12 03/24/13 Nitroglycerin 0.4 mg SL DAILYP PRN 03/24/13 Sitagliptin Phos/Metformin HCl [Janumet 50-1,000 mg Tablet] 1 tab PO Q12 03/24/13 Apixaban [Eliquis 2.5 mg Tablet] 2.5 mg PO Q12 05/08/18 Brimonidine Tartrate/Timolol [Combigan 0.2%-0.5% Eye Drops] 1 drop OU Q12 05/08/18 Clonidine HCl [Catapres 0.2 mg Tablet] 0.2 mg PO Q12 05/08/18 Cyclosporine 0.05% Oph Emulsio [Restasis 0.05% Oph Emulsion Pf 0.4 ml] 1 drop OU Q12 05/08/18 Donepezil HCl [Aricept] 10 mg PO DAILY 05/08/18 Ezetimibe [Zetia 10 mg Tablet] 10 mg PO DAILY 05/08/18 Isosorbide Mononitrate [Imdur 30 mg Tablet.er] 30 mg PO DAILY 05/08/18 Potassium Chloride [Klor-Con 10 Meq Capsule ER] 10 meq PO DAILY 05/08/18 Prednisone [Deltasone 20 mg Tablet] 20 mg PO DAILY 05/08/18 Simvastatin [Zocor 40 mg Tablet] 40 mg PO QHS 05/08/18 Telmisartan/Hydrochlorothiazid [Telmisartan-Hctz 80-12.5 mg Tb] 1 tab PO DAILY 05/08/18 History of Present Illness Patient complains of: Chest pain History of Present Illness: CAMPOS ALVAREZ is a 87 year old male patient with past medical history of coronary artery disease status post coronary artery bypass graft, hypertension, hyperlipidemia, type 2 diabetes mellitus and deafness presents with chief complaint of physical and mental declining and fall. Since patient is hard of hearing brief history is obtained verbally from the ER attending. Nobody in his room during my encounter. Per ER attending patient declining and is functional capacity as well as mentally. On April 06, 2018 patient had visited [facility] ER for headache and they are attending at that time diagnosed the patient with temporal arteritis is doing ESR of 38 and patient started on p.o. prednisolone. No temporal artery biopsy done. Patient is being followed up by neurologist. There is no report of fever, chills, chest pain. No headache or blurry vision. He CT scan of the head is negative. Further detailed history and review of system is unobtainable. Patient was admitted to the hospitalist service on telemetry. Serial troponins x3 were done. These were all negative. Dr. Worley saw the patient in consult. Patient had undergone a recent stress test and echo within the last 6 months which he had the results. He does not feel patient needs to have the studies repeated. He was noted to have a significantly high blood pressure when he was first admitted. However this is improved with restarting his home medications. He does not recommended increasing dosages. Physical therapy saw the patient in consult. They had recommended short-term rehab versus home health with physical therapy. Was discussed with his . She does not want him to go to rehab at this time. She is agreeable to home physical therapy and nursing. Case management was consulted. This will be arranged. She is also asked for a bedside commode and a shower chair. These will be obtained as well. He will be discharged home with home health care starting tomorrow. Physical Exam Vital Signs: Temp Pulse Resp BP Pulse Ox 98.0 F 86 19 144/74 H 97 05/09/18 11:00 05/09/18 11:00 05/09/18 11:00 05/09/18 11:00 05/09/18 11:00 Intake & Output 05/08/18 05/09/18 05/10/18 06:59 06:59 06:59 Intake Total 1500 1054 Balance 1500 1054 Weight 82.9 kg General appearance: PRESENT: no acute distress, well-developed, well-nourished Head exam: PRESENT: atraumatic, normocephalic Eye exam: PRESENT: conjunctiva pink, EOMI, PERRLA. ABSENT: scleral icterus Ear exam: PRESENT: normal external ear exam Mouth exam: PRESENT: moist, tongue midline Neck exam: ABSENT: carotid bruit, JVD, lymphadenopathy, thyromegaly Respiratory exam: PRESENT: clear to auscultation last. ABSENT: rales, rhonchi, wheezes Cardiovascular exam: PRESENT: RRR. ABSENT: diastolic murmur, rubs, systolic murmur Pulses: PRESENT: normal dorsalis pedis pul Vascular exam: PRESENT: normal capillary refill GI/Abdominal exam: PRESENT: normal bowel sounds, soft. ABSENT: distended, guarding, mass, organolmegaly, rebound, tenderness Rectal exam: PRESENT: deferred Extremities exam: PRESENT: full ROM. ABSENT: calf tenderness, clubbing, pedal edema Neurological exam: PRESENT: alert, awake, oriented to person, oriented to place, oriented to time, CN II-XII grossly intact, other - Extremely hard of hearing.. ABSENT: motor sensory deficit Psychiatric exam: PRESENT: appropriate affect, normal mood. ABSENT: homicidal ideation, suicidal ideation Results Laboratory Results: 05/08/18 10:20 05/08/18 10:20 05/09/18 06:05 TSH 0.24 L 05/08/18 05/08/18 05/08/18 10:20 10:20 18:45 Creatine Kinase 43 L CK-MB (CK-2) 0.70 Troponin I 0.020 0.040 Impressions: Chest X-Ray 05/08/18 10:16 IMPRESSION: Old sternotomy for CABG. No acute findings Head CT 05/08/18 10:16 IMPRESSION: 1. No acute intracranial pathology. Small vessel white matter disease. 2. There is new mucosal thickening and air-fluid level of the left maxillary sinus and ethmoid air cells. Correlate for evidence of acute sinusitis, trauma less likely. EVIDENCE OF ACUTE STROKE: NO. Hip X-Ray 05/08/18 10:16 IMPRESSION: DEGENERATIVE CHANGES IN THE HIPS. NO ACUTE TRAUMATIC FINDINGS. Qualifiers - * PATIENT BEING DISCHARGED WITH ANY OF THE FOLLOWING DIAGNOSIS: No
[2018-05-09 14:34] VITALS: BP 109/58
[2018-05-09] MEDS ORDERED: INSULIN LISPRO 100 UNIT/ML 3 ML VIAL SUBCUT SCH (16:00)
== END 2018-05-09 15:01 | disposition home health service (06) ==
LOC: ER 09:58 → EH 15:26 → 4S 19:46
PROVIDERS: ADMIT Internal Medicine; ATTEND Internal Medicine
DX: R53.81 Other malaise (principal); I25.10 Atherosclerotic heart disease of native coronary artery without angina pectoris; Z95.1 Presence of aortocoronary bypass graft; E78.5 Hyperlipidemia, unspecified; I16.0 Hypertensive urgency; M31.6 Other giant cell arteritis; E11.9 Type 2 diabetes mellitus without complications; I48.91 Unspecified atrial fibrillation; H91.90 Unspecified hearing loss, unspecified ear; M62.81 Muscle weakness (generalized); X58.XXXA Exposure to other specified factors, initial encounter; Y92.002 Bathroom of unspecified non-institutional (private) residence as the place of occurrence of the external cause; Z79.899 Other long term (current) drug therapy; Z79.02 Long term (current) use of antithrombotics/antiplatelets
CPT/HCPCS: 93005; 99285; 96360; 96361; 36415 ×2; 82553; 82962 ×2; 82550; 83605; 83690; 83735; 84443; 85025; 85610; 80053; 81001; 84484; 83036; 71045; 73522; 70450; 93010; 97530; 97116; 97163; G0378 ×3; A9270 ×12; J7030; J7040; J1815; J7512

== ENCOUNTER 2018-07-10 15:15 | Inpatient (IN) | payer MEDICARE, OTHER ==
--- NOTE | 2018-07-10 15:20 | ER Document Report ---
ED General - General Stated Complaint: HYPOTENSION Time Seen by Provider: 07/10/18 15:19 Notes: Patient is a 87-year-old male with history of CAD, hypertension, atrial f ibrillation that presents to the emergency department for chief complaint of low blood pressure, generalized weakness. Patient apparently had a fall around 4 AM in the morning this morning, where his legs gave out from underneath him and he struck the right side of his body into a door frame, and slid down, denies any head injury or neck injury. Per EMS the patient's blood pressure was in the 80s systolic, and per family it was 70/50. He was given 500 mL's of fluid by EMS, his blood sugar was 288. At this time the patient is complaining of pain in his right side, describes it as a 6 out of 10 aching pain. He recently has a new bedsore on his backside, and has had redness in the left leg. He is complaining of some pain in the left leg as well and is tender to touch. He is on blood pr essure medication as well as Lasix for lower extremity edema. Past Medical History: Diabetes mellitus, hypertension, atrial fibrillation, CAD Past Surgical History: CABG Social History: Former smoker, denies current alcohol or drug use, lives alone. Family History: Reviewed and noncontributory for presenting illness Allergies: Reviewed, see documented allergy list. REVIEW OF SYSTEMS: Other than noted above, the 12 point review of systems was reviewed with the patient and were negative, all pertinent findings are included in the HPI. PHYSICAL EXAMINATION: Vital signs reviewed, nursing noted reviewed. GENERAL: Elderly male, no acute distress, hard of hearing HEAD: Atraumatic, normocephalic. EYES: Eyes appear normal, extraocular movements intact, sclera anicteric, conjunctiva are normal. ENT: nares patent, oropharynx clear without exudates. Moist mucous membranes. NECK: Normal range of motion, supple without lymphadenopathy, no midline tenderness LUNGS: Breath sounds clear to auscultation bilaterally and equal. No wheezes rales or rhonchi. Right rib tenderness with palpation, without step-off or crepitus or deformity HEART: Heart rate regular rate, irregular rhythm, no audible murmur ABDOMEN: Soft, nontender, normoactive bowel sounds. No rebound, guarding, or rigidity. No masses appreciated. EXTREMITIES: Left lower extremity noted to be cellulitic, with an open lesion, no active drainage, tender to palpate, with bilateral 1+ edema in the lower extremities. NEUROLOGICAL: No focal neurological deficits. Moves all extremities spontaneously Motor and sensory grossly intact on exam. PSYCH: Normal mood, normal affect. SKIN: Warm, Dry, normal turgor, sacral decubitus ulcer noted. TRAVEL OUTSIDE OF THE [place] IN LAST 30 DAYS: No - Related Data Allergies/Adverse Reactions: No Known Allergies Allergy (Verified 07/10/18 16:47) Past Medical History - Social History Smoking Status: Former Smoker Family History: Reviewed & Not Pertinent - Past Medical History Cardiac Medical History: Reports: Hx Atrial Fibrillation - On Eliquis., Hx Heart Attack, Hx Hypertension Endocrine Medical History: Reports: Hx Diabetes Mellitus Type 2 Renal/ Medical History: Denies: Hx Peritoneal Dialysis Past Surgical History: Reports: Hx Cardiac Catheterization, Hx Cardiac Surgery - Immunizations Hx Diphtheria, Pertussis, Tetanus Vaccination: Yes Hx Pneumococcal Vaccination: 09/12/10 Physical Exam - Vital signs Vitals: Resp BP 14 100/63 07/10/18 15:30 07/10/18 15:30 Course - Re-evaluation Re-evalutation: Patient seen and examined vital signs reviewed. Laboratory data and imaging were ordered as appropriate for the patient's presenting symptoms and complaint, with consideration of any critical or life threatening conditions that may be associated with their obtained history and exam as noted above. Patient was treated with IV fluids a total of 1.5 L Results were reviewed when available and demonstrated elevated lactate of 5.1, chest x-ray and rib films are negative for rib fracture or injury or lung injury. The rest the patient's blood work was essentially unremarkable, did feel that the patient was dehydrated, his blood pressure did improve with IV fluids, do not feel that this patient was septic despite elevated lactate, is likely more from the patient's fall dehydration and hypotension, he did have left lower extremity cellulitis, that was treated with IV vancomycin and Zosyn. The patient was re-evaluated and was stable and improved Evaluation was most consistent with hypotension, elevated lactic acid, dehydration Results were discussed with the patient at this point after careful consideration I feel that that patient should be admitted to the hospital. This was discussed with the patient that it is in the best interest for their care to be admitted for further evaluation and management. Patient agreed with this plan of care. A call was placed to the admitted physician, Dr. Anthony who graciously accepted the patient onto their service. *Note is created using voice recognition software and may contain spelling, syntax or grammatical errors. Microbiology 07/10/18 16:56 Urine Culture - Final Clean Catch Midstream Mixed Urogenital [facility] 07/10/18 07/10/18 07/10/18 15:53 16:56 16:56 WBC 7.7 RBC 3.84 L Hgb 11.8 L Hct 34.7 L MCV 90 MCH 30.8 MCHC 34.1 RDW 14.9 H Plt Count 205 Seg Neutrophils % 66.4 Lymphocytes % 23.3 Monocytes % 8.1 Eosinophils % 1.6 Basophils % 0.6 Absolute Neutrophils 5.1 Absolute Lymphocytes 1.8 Absolute Monocytes 0.6 Absolute Eosinophils 0.1 Absolute Basophils 0.0 PT 15.4 INR 1.16 VBG pH VBG pCO2 VBG HCO3 VBG Base Excess Sodium Potassium Chloride Carbon Dioxide Anion Gap BUN Creatinine Est GFR ( Amer) Est GFR (Non-Af Amer) Glucose POC Glucose 257 H Lactic Acid Calcium Total Bilirubin Direct Bilirubin Neonat Total Bilirubin Neonat Direct Bilirubin Neonat Indirect Bili AST ALT Alkaline Phosphatase Creatine Kinase Troponin I Total Protein Albumin Urine Color Urine Appearance Urine pH Ur Specific [place] Urine Protein Urine Glucose (UA) Urine Ketones Urine Blood Urine Nitrite Urine Bilirubin Urine Urobilinogen Ur Leukocyte Esterase Urine WBC (Auto) Urine RBC (Auto) U Hyaline Cast (Auto) Urine Bacteria (Auto) Squamous Epi Cells Auto Amorphous Sediment Auto Urine Mucus (Auto) Urine Ascorbic Acid 07/10/18 07/10/18 07/10/18 16:56 16:56 16:56 WBC RBC Hgb Hct MCV MCH MCHC RDW Plt Count Seg Neutrophils % Lymphocytes % Monocytes % Eosinophils % Basophils % Absolute Neutrophils Absolute Lymphocytes Absolute Monocytes Absolute Eosinophils Absolute Basophils PT INR VBG pH 7.44 H VBG pCO2 52.8 VBG HCO3 34.8 H VBG Base Excess 8.8 Sodium 135.6 L Potassium 4.8 Chloride 93 L Carbon Dioxide 33 H Anion Gap 10 BUN 29 H Creatinine 1.01 Est GFR ( Amer) > 60 Est GFR (Non-Af Amer) > 60 Glucose 191 H POC Glucose Lactic Acid 5.1 H Calcium 9.6 Total Bilirubin 1.2 Direct Bilirubin 0.3 Neonat Total Bilirubin Not Reportable Neonat Direct Bilirubin Not Reportable Neonat Indirect Bili Not Reportable AST 25 ALT 29 Alkaline Phosphatase 38 Creatine Kinase 38 L Troponin I Total Protein 5.6 L Albumin 3.0 L Urine Color Urine Appearance Urine pH Ur Specific [place] Urine Protein Urine Glucose (UA) Urine Ketones Urine Blood Urine Nitrite Urine Bilirubin Urine Urobilinogen Ur Leukocyte Esterase Urine WBC (Auto) Urine RBC (Auto) U Hyaline Cast (Auto) Urine Bacteria (Auto) Squamous Epi Cells Auto Amorphous Sediment Auto Urine Mucus (Auto) Urine Ascorbic Acid 07/10/18 07/10/18 16:56 16:56 WBC RBC Hgb Hct MCV MCH MCHC RDW Plt Count Seg Neutrophils % Lymphocytes % Monocytes % Eosinophils % Basophils % Absolute Neutrophils Absolute Lymphocytes Absolute Monocytes Absolute Eosinophils Absolute Basophils PT INR VBG pH VBG pCO2 VBG HCO3 VBG Base Excess Sodium Potassium Chloride Carbon Dioxide Anion Gap BUN Creatinine Est GFR ( Amer) Est GFR (Non-Af Amer) Glucose POC Glucose Lactic Acid Calcium Total Bilirubin Direct Bilirubin Neonat Total Bilirubin Neonat Direct Bilirubin Neonat Indirect Bili AST ALT Alkaline Phosphatase Creatine Kinase Troponin I 0.016 Total Protein Albumin Urine Color YELLOW Urine Appearance SLIGHTLY-CLOUDY Urine pH 7.0 Ur Specific [place] 1.007 Urine Protein NEGATIVE Urine Glucose (UA) >=500 H Urine Ketones NEGATIVE Urine Blood NEGATIVE Urine Nitrite NEGATIVE Urine Bilirubin NEGATIVE Urine Urobilinogen NEGATIVE Ur Leukocyte Esterase TRACE H Urine WBC (Auto) 6 Urine RBC (Auto) 1 U Hyaline Cast (Auto) 1 Urine Bacteria (Auto) TRACE Squamous Epi Cells Auto 3 Amorphous Sediment Auto TRACE Urine Mucus (Auto) RARE Urine Ascorbic Acid NEGATIVE Ribs w/Chest X-Ray 07/10/18 15:29 IMPRESSION: 1. No pneumothorax. No displaced rib fracture. 2. 2 curvilinear metallic densities overlie right lateral chest, possibly surgical clips although foreign body is not excluded. Recommend correlation with patient symptoms/ physical exam. - Vital Signs Vital signs: Temp Pulse Resp BP Pulse Ox 98.5 F 87 21 H 102/56 L 98 07/11/18 15:57 07/11/18 15:57 07/11/18 15:57 07/11/18 15:57 07/11/18 15:57 - Laboratory Result Diagrams: 07/11/18 08:27 07/11/18 08:27 Laboratory results interpreted by me: 07/10/18 07/10/1807/10/19 15:53 16:56 16:56 RBC 3.84 L Hgb 11.8 L Hct 34.7 L RDW 14.9 H VBG pH VBG HCO3 Sodium 135.6 L Chloride 93 L Carbon Dioxide 33 H BUN 29 H Glucose 191 H POC Glucose 257 H Lactic Acid Creatine Kinase 38 L Total Protein 5.6 L Albumin 3.0 L Urine Glucose (UA) Ur Leukocyte Esterase 07/10/18 07/10/18 07/10/18 16:56 16:56 16:56 RBC Hgb Hct RDW VBG pH 7.44 H VBG HCO3 34.8 H Sodium Chloride Carbon Dioxide BUN Glucose POC Glucose Lactic Acid 5.1 H Creatine Kinase Total Protein Albumin Urine Glucose (UA) >=500 H Ur Leukocyte Esterase TRACE H Critical Care Note - Critical Care Note Total time excluding time spent on procedures (mins): 35 Comments: Critical care time 35 minutes exclusive from separate billable procedures for a patient requiring complex medical decision making, and high potential for clinical deterioration. The patient was hypotensive requiring fluid resuscitation and close monitoring. Time spent obtaining history from patient or surrogate, discussions with consultants, development of treatment plan with patient or surrogate, evaluation of patient's response to treatment, examination of patient, ordering and performing treatments and interventions, ordering and review of laboratory studies, re-evaluation of patient's condition, ordering and review of radiographic studies and review of old charts Discharge - Discharge Clinical Impression: Dehydration Cellulitis Qualifiers: Site of cellulitis: extremity Site of cellulitis of extremity: lower extremity Laterality: left Qualified Code(s): L03.116 - Cellulitis of left lower limb Hypotension Qualifiers: Hypotension type: unspecified hypotension type Qualified Code(s): I95.9 - Hypotension, unspecified Condition: Stable Disposition: ADMITTED OBSERVATION Admitting Provider: Gabrielle (Hospitalist) Unit Admitted: Telemetry
[2018-07-10] MEDS ORDERED: RINGERS SOLUTION,LACTATED 1,000 ML IV ONE ×2 (15:28→17:58)
[2018-07-10] MEDS ORDERED: FENTANYL CITRATE INJ/PF 100 MCG/2 ML AMPUL IV ONE (15:29)
[2018-07-10] MEDS ORDERED: ONDANSETRON HCL INJ/PF 4 MG/2 ML SDV IV ONE (15:29)
[2018-07-10] MEDS ORDERED: VANCOMYCIN HCL INJ 1000 MG VIAL IV ONE ×2 (15:37→18:15)
[2018-07-10] MEDS ORDERED: PIPERACILLIN/TAZOBACTAM 3.375 GM VIAL IV ONE ×2 (15:38→18:45)
--- NOTE | 2018-07-10 16:33 | RADIOLOGY REPORT (SQ) ---
EXAM DESCRIPTION: RIBS RIGHT W/PA CHEST COMPLETED DATE/TIME: 07/10/2018 4:22 pm REASON FOR STUDY: right rib pain, fall COMPARISON: None. TECHNIQUE: Frontal view of the chest and additional views of the right ribs acquired. NUMBER OF VIEWS: 5 LIMITATIONS: Cardiac leads overlie chest. . FINDINGS: FRONTAL CXR: No pneumothorax. No pleural effusion. No atelectasis or infiltrates. Chron ic interstitial changes. Aortic atherosclerosis. Evidence of prior median sternotomy and CABG. RIBS: No displaced rib fractures. No lytic or blastic bony lesions. OTHER: 2 curvilinear metallic densities overlie right lateral chest measuring 5 mm, possibly surgical clips. IMPRESSION: 1. No pneumothorax. No displaced rib fracture. 2. 2 curvilinear metallic densities overlie right lateral chest, possibly surgical clips although fo reign body is not excluded. Recommend correlation with patient symptoms/ physical exam. COMMENT: SITE OF TRAUMA/COMPLAINT MARKED/STAMP COMPLETED: NO. TECHNICAL DOCUMENTATION: JOB ID: [id number] [employer]- All Rights Reserved Reading location - IP/workstation name: [email or web address]
[2018-07-10 17:25] LABS: VENOUS BLOOD BASE EXCESS 8.8 mmol/L; VENOUS BLOOD HCO3 34.8 mmol/L (20-32); VENOUS BLOOD PCO2 52.8 mmHg (35-63); VENOUS BLOOD PH 7.44 (7.30-7.42)
[2018-07-10 17:26] LABS: ABSOLUTE EOSINOPHILS # (AUTO) 0.1 10^3/uL (0.0-0.6); ABSOLUTE LYMPHOCYTES (AUTO) 1.8 10^3/uL (0.5-4.7); ABSOLUTE MONOCYTES (AUTO) 0.6 10^3/uL (0.1-1.4); ABSOLUTE NEUT (AUTO) 5.1 10^3/uL (1.7-8.2); BASOPHILS % (AUTO) 0.6 % (0-2); EOSINOPHILS % (AUTO) 1.6 % (0-6); HEMATOCRIT 34.7 % (37.9-51.0); HEMOGLOBIN 11.8 g/dL (13.5-17.0); LYMPHOCYTES % (AUTO) 23.3 % (13-45); MEAN CORPUSCULAR HEMOGLOBIN 30.8 pg (27.0-33.4); MEAN CORPUSCULAR HGB CONC 34.1 g/dL (32.0-36.0); MEAN CORPUSCULAR VOLUME 90 fl (80-97); MONOCYTES % (AUTO) 8.1 % (3-13); PLATELET COUNT 205 10^3/uL (150-450); RED BLOOD COUNT 3.84 10^6/uL (4.35-5.55); RED CELL DISTRIBUTION WIDTH 14.9 % (11.5-14.0); SEGMENTED NEUTROPHILS % (AUTO) 66.4 % (42-78); TOTAL CELLS COUNTED % (AUTO) 100 %; WHITE BLOOD COUNT 7.7 10^3/uL (4.0-10.5)
[2018-07-10 17:29] LABS: INTERNATIONAL RATION (INR) 1.16; PROTHROMBIN TIME 15.4 SEC (11.4-15.4)
[2018-07-10 17:43] LABS: ALANINE AMINOTRANSFERASE 29 U/L (21-72); ALKALINE PHOSPHATASE 38 U/L (38-126); ANION GAP 10 (5-19); ASPARTATE AMINO TRANSFERASE 25 U/L (17-59); BILIRUBIN,DIRECT 0.3 mg/dL (0.0-0.4); BILIRUBIN,TOTAL 1.2 mg/dL (0.2-1.3); BLOOD UREA NITROGEN 29 mg/dL (7-20); CALCIUM 9.6 mg/dL (8.4-10.2); CARBON DIOXIDE 33 mmol/L (22-30); CHLORIDE 93 mmol/L (98-107); CREATINE KINASE 38 U/L (55-170); GLUCOSE 191 mg/dL (75-110); POTASSIUM 4.8 mmol/L (3.6-5.0); SODIUM 135.6 mmol/L (137-145); TOTAL PROTEIN 5.6 g/dL (6.3-8.2)
[2018-07-10 18:00] LABS: AMORPHOUS SEDIMENT,URINE TRACE /HPF; APPEARANCE,URINE SLIGHTLY-CLOUDY; BILIRUBIN,URINE NEGATIVE (NEGATIVE); COLOR,URINE YELLOW; GLUCOSE, URINE >=500 mg/dL (NEGATIVE); KETONES,URINE NEGATIVE (NEGATIVE); LEUKOCYTE ESTERASE,URINE TRACE (NEGATIVE); NITRITE,URINE NEGATIVE (NEGATIVE); PROTEIN,URINE NEGATIVE (NEGATIVE); URINE SPECIFIC GRAVITY 1.007; UROBILINOGEN,URINE NEGATIVE mg/dL (<2.0)
[2018-07-10] MEDS ORDERED: NORMAL SALINE 1000 ML 1,000 ML IV PRN (18:39)
[2018-07-10] MEDS ORDERED: ONDANSETRON HCL INJ/PF 4 MG/2 ML SDV IV PRN (18:39)
--- NOTE | 2018-07-10 19:04 | PDOC H&P ---
History of Present Illness Admission Date/PCP: 07/10/18 18:21 Patient complains of: History of fall History of Present Illness: CAMPOS ALVAREZ is a 87 year old male with history of dementia, atrial fibrillation, history of [place] with 2 bypasses, hypertension, diabetes mellitus brought to the emergency room by the family members after a fall. Patient lives independently but close to his son's house they usually watch him to the monitors and they do not know how long the patient is on the floor brought to the emergency room the work-up indicates patient might have WILY and also has a infected decubitus wound on the on the left buttock hypotensive 124 L of IV fl uids are given in the emergency room CK was 38 systolic blood pressure by the EMS and the initial in the ER is 70 blood pressure was improved to 112/74 medical consult was called for admission for possible cellulitis of the left buttock also. Went to evaluate the patient's son was at bedside able to provide little bit of information on examination found to have infected left buttock decubitus ulceration. Patient blood pressure is 03/03/1968. Plan to admit him the hospital for IV hydration and for IV antibiotic therapy and physical therapy. Past Medical History Cardiac Medical History: Reports: Atrial Fibrillation - On Eliquis., Myocardial Infarction, Hypertension Endocrine Medical History: Reports: Diabetes Mellitus Type 2 Past Surgical History Past Surgical History: Reports: Cardiac Catheterization, Other - Bypass twice Social History Information Source: Patient, Relative Lives with: Alone Smoking Status: Never Smoker Frequency of Alcohol Use: None Hx Recreational Drug Use: No Drugs: None Hx Prescription Drug Abuse: No - Advance Directive Resuscitation Status: Full Code Family History Family History: Reviewed & Not Pertinent Parental Family History Reviewed: Yes - With history of coronary artery disease with stent placement, hypertension Children Family History Reviewed: Yes Sibling(s) Family History Reviewed.: Yes Medication/Allergy Allergies/Adverse Reactions: No Known Allergies Allergy (Verified 07/10/18 16:47) Review of Systems Constitutional: PRESENT: fatigue, weakness. ABSENT: fever(s), headache(s) Eyes: ABSENT: visual disturbances Ears: ABSENT: hearing changes Nose, Mouth, and Throat: ABSENT: sore throat Cardiovascular: ABSENT: chest pain, dyspnea on exertion, orthropnea, palpitations Respiratory: ABSENT: dyspnea, hemoptysis Gastrointestinal: ABSENT: hematemesis, hematochezia, nausea, vomiting Genitourinary: ABSENT: dysuria, hematuria Musculoskeletal: ABSENT: joint swelling Integumentary: PRESENT: wounds - Decubitus wound on the left buttock Neurological: PRESENT: dizziness, weakness Psychiatric: ABSENT: anxiety, depression, homidical ideation, suicidal ideation Endocrine: ABSENT: cold intolerance, heat intolerance, polydipsia, polyuria Physical Exam Vital Signs: Temp Pulse Resp BP Pulse Ox 97.9 F 20 112/74 89 L 07/10/18 18:00 07/10/18 18:00 07/10/18 16:01 07/10/18 18:00 Intake & Output 07/09/18 07/10/18 07/11/18 06:59 06:59 06:59 Intake Total 1999 Balance 1999 Weight 84.8 kg General appearance: PRESENT: no acute distress, well-developed, other - Early male in the bed communicating okay hard in hearing has dementia. Head exam: PRESENT: atraumatic Eye exam: PRESENT: PERRLA Mouth exam: PRESENT: moist, tongue midline Neck exam: ABSENT: carotid bruit, JVD, lymphadenopathy, thyromegaly Respiratory exam: PRESENT: decreased breath sounds Cardiovascular exam: PRESENT: irregular rhythm GI/Abdominal exam: PRESENT: normal bowel sounds, soft. ABSENT: distended, guarding, mass, organolmegaly, rebound, tenderness Rectal exam: PRESENT: deferred Extremities exam: PRESENT: full ROM. ABSENT: calf tenderness, clubbing, pedal edema Neurological exam: PRESENT: alert, awake, oriented to person, oriented to place, oriented to time, oriented to situation, CN II-XII grossly intact. ABSENT: motor sensory deficit Psychiatric exam: PRESENT: appropriate affect, normal mood. ABSENT: homicidal ideation, suicidal ideation Skin exam: PRESENT: other - Sacral decubitus wound on the left buttock stage I- II looks infected. Results Laboratory Results: 07/10/18 16:56 07/10/18 16:56 07/10/18 07/10/18 07/10/18 16:56 16:56 16:56 WBC 7.7 RBC 3.84 L Hgb 11.8 L Hct 34.7 L MCV 90 MCH 30.8 MCHC 34.1 RDW 14.9 H Plt Count 205 Seg Neutrophils % 66.4 Lymphocytes % 23.3 Monocytes % 8.1 Eosinophils % 1.6 Basophils % 0.6 Absolute Neutrophils 5.1 Absolute Lymphocytes 1.8 Absolute Monocytes 0.6 Absolute Eosinophils 0.1 Absolute Basophils 0.0 VBG pH VBG pCO2 VBG HCO3 VBG Base Excess Sodium 135.6 L Potassium 4.8 Chloride 93 L Carbon Dioxide 33 H Anion Gap 10 BUN 29 H Creatinine 1.01 Est GFR ( Amer) > 60 Est GFR (Non-Af Amer) > 60 Glucose 191 H Lactic Acid 5.1 H Calcium 9.6 Total Bilirubin 1.2 AST 25 ALT 29 Alkaline Phosphatase 38 Total Protein 5.6 L Albumin 3.0 L Urine Color Urine Appearance Urine pH Ur Specific [place] Urine Protein Urine Glucose (UA) Urine Ketones Urine Blood Urine Nitrite Ur Leukocyte Esterase Urine WBC (Auto) Urine RBC (Auto) 07/10/18 07/10/18 16:56 16:56 WBC RBC Hgb Hct MCV MCH MCHC RDW Plt Count Seg Neutrophils % Lymphocytes % Monocytes % Eosinophils % Basophils % Absolute Neutrophils Absolute Lymphocytes Absolute Monocytes Absolute Eosinophils Absolute Basophils VBG pH 7.44 H VBG pCO2 52.8 VBG HCO3 34.8 H VBG Base Excess 8.8 Sodium Potassium Chloride Carbon Dioxide Anion Gap BUN Creatinine Est GFR ( Amer) Est GFR (Non-Af Amer) Glucose Lactic Acid Calcium Total Bilirubin AST ALT Alkaline Phosphatase Total Protein Albumin Urine Color YELLOW Urine Appearance SLIGHTLY-CLOUDY Urine pH 7.0 Ur Specific [place] 1.007 Urine Protein NEGATIVE Urine Glucose (UA) >=500 H Urine Ketones NEGATIVE Urine Blood NEGATIVE Urine Nitrite NEGATIVE Ur Leukocyte Esterase TRACE H Urine WBC (Auto) 6 Urine RBC (Auto) 1 07/10/18 07/10/18 16:56 16:56 Creatine Kinase 38 L Troponin I 0.016 Impressions: Ribs w/Chest X-Ray 07/10/18 15:29 IMPRESSION: 1. No pneumothorax. No displaced rib fracture. 2. 2 curvilinear metallic densities overlie right lateral chest, possibly surgical clips although foreign body is not excluded. Recommend correlation wit h patient symptoms/ physical exam. Assessment and Plan - Diagnosis (1) Hypotension Is this a current diagnosis for this admission?: Yes Plan: 07/10/2018-patient going to be admitted for hypotension at the time of arrival systolic blood pressure is 70 after giving 1-1/2 L fluids blood pressure is 120/70. Associated with history of fall. Potential most likely secondary to medications he is on 3 antihypertensive at home. To hold home blood pressure medications at this point continue IV fluids normal saline 75 cc/h GI prophylaxis DVT prophylaxis initiated aspiration fall seizure precautions are initiated blood cultures wound cultures urine cultures are requested to start on Zosyn and IV vancomycin. Physical therapy consult was requested. 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 (4) Fall Is this a current diagnosis for this admission?: Yes Plan: 06/13/2018 1 patient came in with history of fall CK is [address] plan to [address] head without contrast aspiration fall seizure precautions are requested PT consult was requested. (5) Atrial fibrillation Is this a current diagnosis for this admission?: No Plan: 07/10/2018-history of atrial fibrillation family is not sure whether he is on anticoagulation or not presently heart rate is controlled still in A. fib asymptomatic probably fall may be contributing patient of the A. fib. We do not know yet - Time Time Spent with patient: 25-34 minutes Medications reviewed and adjusted accordingly: Yes Anticipated discharge: Home
[2018-07-10] MEDS: ENOXAPARIN SODIUM INJ 40 MG/0.4 ML DISP.SYRIN SUBCUT SCH (19:48)
[2018-07-10 20:27] LABS: CREATINE KINASE MB 0.91 ng/mL (<4.55); TROPONIN I 0.016 ng/mL
--- NOTE | 2018-07-10 22:21 | EKG REPORT ---
SEVERITY:- ABNORMAL ECG - ATRIAL FIBRILLATION, V-RATE 57-95 REPOL ABNRM SUGGESTS ISCHEMIA, ANT-LAT LEADS : Confirmed by: Radha Pena MD 10-Jul-2018 22:19:53
[2018-07-10] MEDS: PIPERACILLIN SODIUM/TAZOBACTAM 3.375 GM in NORMAL SALINE 100 ML IV SCH (23:34)
[2018-07-10] MEDS: VANCOMYCIN HCL 1,000 MG in DEXTROSE 5%-WATER 250 ML IV SCH (23:34)
[2018-07-11] MEDS: PIPERACILLIN SODIUM/TAZOBACTAM 3.375 GM in NORMAL SALINE 100 ML IV SCH ×4 (02:06→22:42)
[2018-07-11 02:55] LABS: CREATINE KINASE MB 0.83 ng/mL (<4.55); TROPONIN I 0.019 ng/mL
[2018-07-11] MEDS: ACETAMINOPHEN 325 MG TABLET PO PRN (05:36)
[2018-07-11] MEDS: PANTOPRAZOLE SODIUM 40 MG TABLET.DR PO SCH ×2 (05:36→16:59)
[2018-07-11 08:52] LABS: ABSOLUTE EOSINOPHILS # (AUTO) 0.2 10^3/uL (0.0-0.6); ABSOLUTE LYMPHOCYTES (AUTO) 1.1 10^3/uL (0.5-4.7); ABSOLUTE MONOCYTES (AUTO) 0.5 10^3/uL (0.1-1.4); ABSOLUTE NEUT (AUTO) 5.1 10^3/uL (1.7-8.2); BASOPHILS % (AUTO) 0.4 % (0-2); EOSINOPHILS % (AUTO) 2.2 % (0-6); HEMOGLOBIN 11.9 g/dL (13.5-17.0); LYMPHOCYTES % (AUTO) 16.3 % (13-45); MEAN CORPUSCULAR HEMOGLOBIN 30.8 pg (27.0-33.4); MEAN CORPUSCULAR HGB CONC 34.1 g/dL (32.0-36.0); MEAN CORPUSCULAR VOLUME 91 fl (80-97); MONOCYTES % (AUTO) 7.7 % (3-13); PLATELET COUNT 187 10^3/uL (150-450); RED BLOOD COUNT 3.86 10^6/uL (4.35-5.55); RED CELL DISTRIBUTION WIDTH 15.2 % (11.5-14.0); SEGMENTED NEUTROPHILS % (AUTO) 73.4 % (42-78); TOTAL CELLS COUNTED % (AUTO) 100 %
[2018-07-11 09:11] LABS: ALANINE AMINOTRANSFERASE 31 U/L (21-72); ALBUMIN 2.8 g/dL (3.5-5.0); ALKALINE PHOSPHATASE 45 U/L (38-126); ANION GAP 9 (5-19); ASPARTATE AMINO TRANSFERASE 20 U/L (17-59); BILIRUBIN,DIRECT 0.3 mg/dL (0.0-0.4); BILIRUBIN,TOTAL 1.3 mg/dL (0.2-1.3); BLOOD UREA NITROGEN 16 mg/dL (7-20); CALCIUM 9.2 mg/dL (8.4-10.2); CARBON DIOXIDE 32 mmol/L (22-30); CHLORIDE 94 mmol/L (98-107); CREATINE KINASE 26 U/L (55-170); GLUCOSE 261 mg/dL (75-110); TOTAL PROTEIN 5.3 g/dL (6.3-8.2); TRIGLYCERIDES 120 mg/dL (<150)
[2018-07-11 09:22] LABS: DIRECT LDL 67 mg/dL (<100)
[2018-07-11 09:25] LABS: POTASSIUM 3.6 mmol/L (3.6-5.0)
[2018-07-11] MEDS: VANCOMYCIN HCL 1,000 MG in DEXTROSE 5%-WATER 250 ML IV SCH ×2 (09:29→22:43)
[2018-07-11] MEDS: GABAPENTIN 300 MG CAPSULE PO SCH ×2 (09:36→22:43)
[2018-07-11] MEDS: MODAFINIL 100 MG TABLET PO SCH (09:36)
[2018-07-11] MEDS: ISOSORBIDE MONONITRATE 60 MG TAB.ER.24H PO SCH (09:36)
[2018-07-11] MEDS: METOPROLOL TARTRATE 100 MG TABLET PO SCH ×2 (09:36→22:42)
[2018-07-11] MEDS: EZETIMIBE 10 MG TABLET PO SCH (09:36)
[2018-07-11] MEDS: DOCUSATE SODIUM 100 MG CAPSULE PO SCH ×2 (09:36→16:59)
[2018-07-11] MEDS: LORATADINE 10 MG TABLET PO SCH (09:36)
[2018-07-11] MEDS: ENOXAPARIN SODIUM INJ 40 MG/0.4 ML DISP.SYRIN SUBCUT SCH (09:36)
[2018-07-11 09:37] LABS: CREATINE KINASE MB 0.8 ng/mL (<4.55); TROPONIN I 0.02 ng/mL
[2018-07-11] MEDS ORDERED: OXYCODONE-ACETAMINOPHEN 5-325 MG TABLET PO PRN (09:57)
[2018-07-11] MEDS ORDERED: MEMANTINE HCL 10 MG TABLET PO SCH (10:00)
[2018-07-11] MEDS ORDERED: VANCOMYCIN HCL INJ 1000 MG VIAL IV SCH (10:00)
[2018-07-11] MEDS ORDERED: DONEPEZIL HCL 5 MG TABLET PO SCH ×2 (10:00)
--- NOTE | 2018-07-11 10:07 | PDOC PROGRESS REPORT ---
Subjective Progress Note for:: 07/11/18 Subjective:: 87 year old male with history of dementia, atrial fibrillation, history of IN with 2 bypasses, hypertension, diabetes mellitus brought to the emergency room by the family members after a fall. Patient lives independently but close to his son's house they usually watch him to the monitors and they do not know how long the patient is on the floor brought to the emergency room the work-up indicates patient might have WILY and also has a infected decubitus wound on the on the left buttock hypotensive 1.5 L of IV fluids are given in the emergency room CK was 38 systolic blood pressure by the EMS and the initial in the ER is 70 blood pressure was improved to 112/74 medical consult was called for admission for possible cellulitis of the left buttock also. Went to evaluate the patient's son was at bedside able to provide little bit of information on examination found to have infected left buttock decubitus ulceration. Patient blood pressure is 03/03/1968. Plan to admit him the hospital for IV hydration and for IV antibiotic therapy and physical therapy. 07/11/[id number]-bhdh-old male with history of atrial fibrillation on apixaban, dementia, coronary artery disease with bypass, sacral decubitus brought in by the family members with history of questionable fall found to be hypotensive. On examination in the emergency room looks like decubitus ulcer is infected start an IV antibiotic therapy cultures are requested I spoke to Dr. Foster this morning, he agreed to see the patient. Patient is complaining of mild headache this morning and if the time the change the dressing on the sacral wound is saying he has a lot of pain started on Percocet 1 tablet every 4 as needed for pain. Reason For Visit: INFECTED DECUBITUS Physical Exam Vital Signs: Temp Pulse Resp BP Pulse Ox 98.2 F 91 18 110/64 95 07/11/18 08:18 07/11/18 08:18 07/11/18 08:18 07/11/18 08:18 07/11/18 08:18 Intake & Output 07/10/18 07/11/18 07/12/18 06:59 06:59 06:59 Intake Total 2650 100 Output Total 850 Balance 1800 100 Weight 80.1 kg General appearance: PRESENT: mild distress Head exam: PRESENT: atraumatic Eye exam: PRESENT: PERRLA Mouth exam: PRESENT: moist, tongue midline Neck exam: ABSENT: carotid bruit, JVD, lymphadenopathy, thyromegaly Respiratory exam: PRESENT: clear to auscultation last. ABSENT: rales, rhonchi, wheezes Cardiovascular exam: PRESENT: irregular rhythm, systolic murmur GI/Abdominal exam: PRESENT: normal bowel sounds, soft. ABSENT: distended, guarding, mass, organolmegaly, rebound, tenderness Rectal exam: PRESENT: deferred Extremities exam: PRESENT: full ROM. ABSENT: calf tenderness, clubbing, pedal edema Neurological exam: PRESENT: alert, awake, oriented to person, oriented to place, oriented to time, oriented to situation, CN II-XII grossly intact. ABSENT: motor sensory deficit Psychiatric exam: PRESENT: appropriate affect, normal mood. ABSENT: homicidal ideation, suicidal ideation Skin exam: PRESENT: other - Infected sacral decubitus on the left buttock stage II probably. Results Laboratory Results: 07/11/18 08:27 07/11/18 08:27 07/10/18 07/10/18 07/10/18 16:56 16:56 16:56 WBC 7.7 RBC 3.84 L Hgb 11.8 L Hct 34.7 L MCV 90 MCH 30.8 MCHC 34.1 RDW 14.9 H Plt Count 205 Seg Neutrophils % 66.4 Lymphocytes % 23.3 Monocytes % 8.1 Eosinophils % 1.6 Basophils % 0.6 Absolute Neutrophils 5.1 Absolute Lymphocytes 1.8 Absolute Monocytes 0.6 Absolute Eosinophils 0.1 Absolute Basophils 0.0 VBG pH VBG pCO2 VBG HCO3 VBG Base Excess Sodium 135.6 L Potassium 4.8 Chloride 93 L Carbon Dioxide 33 H Anion Gap 10 BUN 29 H Creatinine 1.01 Est GFR ( Amer) > 60 Est GFR (Non-Af Amer) > 60 Glucose 191 H Lactic Acid 5.1 H Calcium 9.6 Magnesium Total Bilirubin 1.2 AST 25 ALT 29 Alkaline Phosphatase 38 Ammonia Total Protein 5.6 L Albumin 3.0 L Triglycerides Cholesterol LDL Cholesterol Direct VLDL Cholesterol HDL Cholesterol TSH Urine Color Urine Appearance Urine pH Ur Specific [place] Urine Protein Urine Glucose (UA) Urine Ketones Urine Blood Urine Nitrite Ur Leukocyte Esterase Urine WBC (Auto) Urine RBC (Auto) 07/10/18 07/10/18 07/10/18 16:56 16:56 21:56 WBC RBC Hgb Hct MCV MCH MCHC RDW Plt Count Seg Neutrophils % Lymphocytes % Monocytes % Eosinophils % Basophils % Absolute Neutrophils Absolute Lymphocytes Absolute Monocytes Absolute Eosinophils Absolute Basophils VBG pH 7.44 H VBG pCO2 52.8 VBG HCO3 34.8 H VBG Base Excess 8.8 Sodium Potassium Chloride Carbon Dioxide Anion Gap BUN Creatinine Est GFR ( Amer) Est GFR (Non-Af Amer) Glucose Lactic Acid 1.0 Calcium Magnesium Total Bilirubin AST ALT Alkaline Phosphatase Ammonia Total Protein Albumin Triglycerides Cholesterol LDL Cholesterol Direct VLDL Cholesterol HDL Cholesterol TSH Urine Color YELLOW Urine Appearance SLIGHTLY-CLOUDY Urine pH 7.0 Ur Specific [place] 1.007 Urine Protein NEGATIVE Urine Glucose (UA) >=500 H Urine Ketones NEGATIVE Urine Blood NEGATIVE Urine Nitrite NEGATIVE Ur Leukocyte Esterase TRACE H Urine WBC (Auto) 6 Urine RBC (Auto) 1 07/11/18 07/11/18 07/11/18 08:27 08:27 08:27 WBC 7.0 RBC 3.86 L Hgb 11.9 L Hct 35.0 L MCV 91 MCH 30.8 MCHC 34.1 RDW 15.2 H Plt Count 187 Seg Neutrophils % 73.4 Lymphocytes % 16.3 Monocytes % 7.7 Eosinophils % 2.2 Basophils % 0.4 Absolute Neutrophils 5.1 Absolute Lymphocytes 1.1 Absolute Monocytes 0.5 Absolute Eosinophils 0.2 Absolute Basophils 0.0 VBG pH VBG pCO2 VBG HCO3 VBG Base Excess Sodium 135.0 L Potassium 3.6 D Chloride 94 L Carbon Dioxide 32 H Anion Gap 9 BUN 16 Creatinine 0.90 Est GFR ( Amer) > 60 Est GFR (Non-Af Amer) > 60 Glucose 261 H Lactic Acid Calcium 9.2 Magnesium 1.5 L Total Bilirubin 1.3 AST 20 ALT 31 Alkaline Phosphatase 45 Ammonia < 8.7 L Total Protein 5.3 L Albumin 2.8 L Triglycerides 120 Cholesterol 117.50 LDL Cholesterol Direct 67 VLDL Cholesterol 24.0 HDL Cholesterol 45 TSH Urine Color Urine Appearance Urine pH Ur Specific [place] Urine Protein Urine Glucose (UA) Urine Ketones Urine Blood Urine Nitrite Ur Leukocyte Esterase Urine WBC (Auto) Urine RBC (Auto) 07/11/18 08:27 WBC RBC Hgb Hct MCV MCH MCHC RDW Plt Count Seg Neutrophils % Lymphocytes % Monocytes % Eosinophils % Basophils % Absolute Neutrophils Absolute Lymphocytes Absolute Monocytes Absolute Eosinophils Absolute Basophils VBG pH VBG pCO2 VBG HCO3 VBG Base Excess Sodium Potassium Chloride Carbon Dioxide Anion Gap BUN Creatinine Est GFR ( Amer) Est GFR (Non-Af Amer) Glucose Lactic Acid Calcium Magnesium Total Bilirubin AST ALT Alkaline Phosphatase Ammonia Total Protein Albumin Triglycerides Cholesterol LDL Cholesterol Direct VLDL Cholesterol HDL Cholesterol TSH 0.40 L Urine Color Urine Appearance Urine pH Ur Specific [place] Urine Protein Urine Glucose (UA) Urine Ketones Urine Blood Urine Nitrite Ur Leukocyte Esterase Urine WBC (Auto) Urine RBC (Auto) 07/10/18 07/10/18 07/10/18 16:56 16:56 19:43 Creatine Kinase 38 L 34 L CK-MB (CK-2) Troponin I 0.016 NT-Pro-B Natriuret Pep 07/10/18 07/11/18 07/11/18 19:43 02:19 02:19 Creatine Kinase 27 L CK-MB (CK-2) 0.91 0.83 Troponin I 0.016 0.019 NT-Pro-B Natriuret Pep 07/11/18 07/11/18 08:27 08:27 Creatine Kinase 26 L CK-MB (CK-2) 0.80 Troponin I 0.020 NT-Pro-B Natriuret Pep 3430 H Impressions: Ribs w/Chest X-Ray 07/10/18 15:29 IMPRESSION: 1. No pneumothorax. No displaced rib fracture. 2. 2 curvilinear metallic densities overlie right lateral chest, possibly surgical clips although foreign body is not excluded. Recommend correlation with patient symptoms/ physical exam. Assessment and Plan - Diagnosis (1) Hypotension Is this a current diagnosis for this admission?: Yes Plan: 07/10/2018-patient going to be admitted for hypotension at the time of arrival systolic blood pressure is 70 after giving 1-1/2 L fluids blood pressure is 120/70. Associated with history of fall. Potential most likely secondary to medications he is on 3 antihypertensive at home. To hold home blood pressure medications at this point continue IV fluids normal saline 75 cc/h GI prophylaxis DVT prophylaxis initiated aspiration fall seizure precautions are initiated blood cultures wound cultures urine cultures are requested to start on Zosyn and IV vancomycin. Physical therapy consult was requested. 07/11/2018-patient came in with hypotension SBP 70 in the emergency room. With IV fluids and after holding his home medications blood pressure is improved to 118/60. To discontinue IV fluids from today. Hypotension may be secondary to poor oral intake, infected sacral decubitus. (2) Cellulitis Is this a current diagnosis for this admission?: No Plan: 07/11/2018-patient was admitted with infected probably stage II sacral decubitus surgical consult was requested started on IV antibiotic therapy and requested to change the body position every 2 hours. Plan is to continue to follow the patie nt regular basis. (3) Type 2 diabetes mellitus Qualifiers: Diabetes mellitus local intermodal truck driver insulin use: without local intermodal truck driver use Diabetes mellitus complication status: without complication Qualified Code(s): E11.9 - Type 2 diabetes mellitus without complications Is this a current diagnosis for this admission?: No Plan: 07/10/2018-patient history of type 2 diabetes mellitus to start him on insulin sliding scale before meals and at bedtime to check hemoglobin A1c in a.m. 07/11/2018-patient has history of type 2 diabetes mellitus on glimepiride at home he is also receiving metformin along with Januvia presently on insulin sliding scale latest blood sugar is 265. Plan is to check the hemoglobin A1c. If necessary we are going to start a small dose of Lantus during the hospital stay. (4) Fall Is this a current diagnosis for this admission?: Yes Plan: 06/13/2018 1 patient came in with history of fall CK is 38 plan to do the CT head without contrast aspiration fall seizure precautions are requested PT consult was requested. 06/14/2018-she came in with history of fall to do the CT head without contrast today. Focal neurological deficits on examination. No obvious signs of trauma. (5) Atrial fibrillation Is this a current diagnosis for this admission?: No Plan: 07/10/2018-history of atrial fibrillation family is not sure whether he is on anticoagulation or not presently heart rate is controlled still in A. fib asymptomatic probably fall may be contributing patient of the A. fib. 07/11/2018-patient has history of atrial fibrillation - Time Time Spent with patient: 15-24 minutes Medications reviewed and adjusted accordingly: Yes Anticipated discharge: SNF
[2018-07-11] MEDS ORDERED: DEXTROSE 50%-WATER 25 GM/50 ML DISP.SYRIN IV PRN ×2 (10:27)
[2018-07-11] MEDS ORDERED: DEXTROSE 40% GEL 15 GM TUBE PO PRN ×2 (10:27)
[2018-07-11] MEDS ORDERED: GLUCAGON,HUMAN RECOMB 1 MG INJ IM PRN (10:27)
[2018-07-11] MEDS ORDERED: ONDANSETRON HCL INJ/PF 4 MG/2 ML SDV IV PRN (10:30)
[2018-07-11] MEDS: INSULIN LISPRO 100 UNIT/ML 3 ML VIAL SUBCUT SCH ×3 (11:26→22:23)
[2018-07-11] MEDS: DONEPEZIL PO SCH (11:30)
[2018-07-11] MEDS: MEMANTINE PO SCH (11:30)
--- NOTE | 2018-07-11 13:01 | PDOC CONSULTATION ---
Consultation Consult Date: 07/11/18 Provider Consulted: NELLY MONTAGUE Consult reason:: evaluate sacral decubitus ulcer History of Present Illness Admission Date/PCP: 07/10/18 18:21 Patient complains of: Status post fall History of Present Illness: CAMPOS ALVAREZ is a 87 year old male status post fall noted with sacral decubitus ulcer. General surgery being asked to evaluate. Patient denies any hip pain no chest pain or shortness of breath. No abdominal pain. Past Medical History Cardiac Medical History: Reports: Atrial Fibrillation - On Eliquis., Myocardial Infarction, Hypertension Endocrine Medical History: Reports: Diabetes Mellitus Type 2 Psychiatric Medical History: Reports: Depression Past Surgical History Past Surgical History: Reports: Cardiac Catheterization, Other - Bypass twice Social History Lives with: Alone Smoking Status: Never Smoker Frequency of Alcohol Use: None Hx Recreational Drug Use: No Drugs: None Hx Prescription Drug Abuse: No - Advance Directive Resuscitation Status: Full Code Family History Family History: Reviewed & Not Pertinent Parental Family History Reviewed: No Children Family History Reviewed: No Sibling(s) Family History Reviewed.: No Medication/Allergy Home Medications: Apixaban [Eliquis 2.5 mg Tablet] 2.5 mg PO Q12 07/10/18 Clonidine HCl [Catapres 0.1 mg Tablet] 0.1 mg PO Q12 07/10/18 Ezetimibe [Zetia 10 mg Tablet] 10 mg PO DAILY 07/10/18 Furosemide [Lasix 40 mg Tablet] 40 mg PO DAILY 07/10/18 Gabapentin [Neurontin 300 mg Capsule] 300 mg PO Q12 07/10/18 Glimepiride [Amaryl 4 mg Tablet] 2 mg PO Q12 07/10/18 Isosorbide Mononitrate [Imdur 60 mg Tablet.er] 60 mg PO DAILY 07/10/18 Loratadine [Claritin 10 mg Tablet] 10 mg PO DAILY 07/10/18 Metoprolol Tartrate [Lopressor] 100 mg PO Q12 07/10/18 Modafinil [Provigil 100 Mg Tablet] 100 mg PO QAM 07/10/18 Potassium Chloride [Klor-Con 10 Meq Capsule ER] 10 meq PO DAILY 07/10/18 Prednisone [Deltasone 10 mg Tablet] 20 mg PO DAILY 07/10/18 Simvastatin [Zocor 40 mg Tablet] 40 mg PO QPM 07/10/18 Sitagliptin Phos/Metformin HCl [Janumet 50-1,000 Mg Tablet] 1 each PO BID 07/10/18 Telmisartan/Hydrochlorothiazid [Telmisartan-Hctz 40-12.5 mg Tb] 1 each PO DAILY 07/10/18 Allergies/Adverse Reactions: No Known Allergies Allergy (Verified 07/10/18 16:47) Physical Exam Vital Signs: Temp Pulse Resp BP Pulse Ox 98.2 F 91 18 110/64 95 07/11/18 08:18 07/11/18 08:18 07/11/18 08:18 07/11/18 08:18 07/11/18 08:18 Intake & Output 07/10/18 07/11/18 07/12/18 06:59 06:59 06:59 Intake Total 2650 1350 Output Total 850 Balance 1800 1350 Weight 80.1 kg General appearance: PRESENT: no acute distress, cooperative, hard of hearing Eye exam: PRESENT: conjunctiva pink Neck exam: PRESENT: other - No tenderness along the spine. Respiratory exam: PRESENT: clear to auscultation last Cardiovascular exam: PRESENT: irregular rhythm GI/Abdominal exam: PRESENT: other - Soft, nondistended, nontender to palpation. Pelvis stable. No obvious hip deformity. Able to move hip joint without pain. Neurological exam: PRESENT: alert, awake Psychiatric exam: PRESENT: appropriate affect Skin exam: PRESENT: warm, other - At his sacral region there is regions of erythema and no full-thickness ulcer. No underlying fluctuance and no induration. Results Laboratory Results: 07/11/18 08:27 07/11/18 08:27 07/10/18 07/10/18 07/10/18 16:56 16:56 16:56 WBC 7.7 RBC 3.84 L Hgb 11.8 L Hct 34.7 L MCV 90 MCH 30.8 MCHC 34.1 RDW 14.9 H Plt Count 205 Seg Neutrophils % 66.4 Lymphocytes % 23.3 Monocytes % 8.1 Eosinophils % 1.6 Basophils % 0.6 Absolute Neutrophils 5.1 Absolute Lymphocytes 1.8 Absolute Monocytes 0.6 Absolute Eosinophils 0.1 Absolute Basophils 0.0 VBG pH VBG pCO2 VBG HCO3 VBG Base Excess Sodium 135.6 L Potassium 4.8 Chloride 93 L Carbon Dioxide 33 H Anion Gap 10 BUN 29 H Creatinine 1.01 Est GFR ( Amer) > 60 Est GFR (Non-Af Amer) > 60 Glucose 191 H Lactic Acid 5.1 H Calcium 9.6 Magnesium Total Bilirubin 1.2 AST 25 ALT 29 Alkaline Phosphatase 38 Ammonia Total Protein 5.6 L Albumin 3.0 L Triglycerides Cholesterol LDL Cholesterol Direct VLDL Cholesterol HDL Cholesterol TSH Urine Color Urine Appearance Urine pH Ur Specific [place] Urine Protein Urine Glucose (UA) Urine Ketones Urine Blood Urine Nitrite Ur Leukocyte Esterase Urine WBC (Auto) Urine RBC (Auto) 07/10/18 07/10/18 07/10/18 16:56 16:56 21:56 WBC RBC Hgb Hct MCV MCH MCHC RDW Plt Count Seg Neutrophils % Lymphocytes % Monocytes % Eosinophils % Basophils % Absolute Neutrophils Absolute Lymphocytes Absolute Monocytes Absolute Eosinophils Absolute Basophils VBG pH 7.44 H VBG pCO2 52.8 VBG HCO3 34.8 H VBG Base Excess 8.8 Sodium Potassium Chloride Carbon Dioxide Anion Gap BUN Creatinine Est GFR ( Amer) Est GFR (Non-Af Amer) Glucose Lactic Acid 1.0 Calcium Magnesium Total Bilirubin AST ALT Alkaline Phosphatase Ammonia Total Protein Albumin Triglycerides Cholesterol LDL Cholesterol Direct VLDL Cholesterol HDL Cholesterol TSH Urine Color YELLOW Urine Appearance SLIGHTLY-CLOUDY Urine pH 7.0 Ur Specific [place] 1.007 Urine Protein NEGATIVE Urine Glucose (UA) >=500 H Urine Ketones NEGATIVE Urine Blood NEGATIVE Urine Nitrite NEGATIVE Ur Leukocyte Esterase TRACE H Urine WBC (Auto) 6 Urine RBC (Auto) 1 07/11/18 07/11/18 07/11/18 08:27 08:27 08:27 WBC 7.0 RBC 3.86 L Hgb 11.9 L Hct 35.0 L MCV 91 MCH 30.8 MCHC 34.1 RDW 15.2 H Plt Count 187 Seg Neutrophils % 73.4 Lymphocytes % 16.3 Monocytes % 7.7 Eosinophils % 2.2 Basophils % 0.4 Absolute Neutrophils 5.1 Absolute Lymphocytes 1.1 Absolute Monocytes 0.5 Absolute Eosinophils 0.2 Absolute Basophils 0.0 VBG pH VBG pCO2 VBG HCO3 VBG Base Excess Sodium 135.0 L Potassium 3.6 D Chloride 94 L Carbon Dioxide 32 H Anion Gap 9 BUN 16 Creatinine 0.90 Est GFR ( Amer) > 60 Est GFR (Non-Af Amer) > 60 Glucose 261 H Lactic Acid Calcium 9.2 Magnesium 1.5 L Total Bilirubin 1.3 AST 20 ALT 31 Alkaline Phosphatase 45 Ammonia < 8.7 L Total Protein 5.3 L Albumin 2.8 L Triglycerides 120 Cholesterol 117.50 LDL Cholesterol Direct 67 VLDL Cholesterol 24.0 HDL Cholesterol 45 TSH Urine Color Urine Appearance Urine pH Ur Specific [place] Urine Protein Urine Glucose (UA) Urine Ketones Urine Blood Urine Nitrite Ur Leukocyte Esterase Urine WBC (Auto) Urine RBC (Auto) 07/11/18 08:27 WBC RBC Hgb Hct MCV MCH MCHC RDW Plt Count Seg Neutrophils % Lymphocytes % Monocytes % Eosinophils % Basophils % Absolute Neutrophils Absolute Lymphocytes Absolute Monocytes Absolute Eosinophils Absolute Basophils VBG pH VBG pCO2 VBG HCO3 VBG Base Excess Sodium Potassium Chloride Carbon Dioxide Anion Gap BUN Creatinine Est GFR ( Amer) Est GFR (Non-Af Amer) Glucose Lactic Acid Calcium Magnesium Total Bilirubin AST ALT Alkaline Phosphatase Ammonia Total Protein Albumin Triglycerides Cholesterol LDL Cholesterol Direct VLDL Cholesterol HDL Cholesterol TSH 0.40 L Urine Color Urine Appearance Urine pH Ur Specific [place] Urine Protein Urine Glucose (UA) Urine Ketones Urine Blood Urine Nitrite Ur Leukocyte Esterase Urine WBC (Auto) Urine RBC (Auto) 07/10/18 16:56 Clean Catch Midstream Urine Culture - Final Mixed Urogenital Jess 07/10/18 07/10/18 07/10/18 16:56 16:56 19:43 Creatine Kinase 38 L 34 L CK-MB (CK-2) Troponin I 0.016 NT-Pro-B Natriuret Pep 07/10/18 07/11/18 07/11/18 19:43 02:19 02:19 Creatine Kinase 27 L CK-MB (CK-2) 0.91 0.83 Troponin I 0.016 0.019 NT-Pro-B Natriuret Pep 07/11/18 07/11/18 08:27 08:27 Creatine Kinase 26 L CK-MB (CK-2) 0.80 Troponin I 0.020 NT-Pro-B Natriuret Pep 3430 H Impressions: Ribs w/Chest X-Ray 07/10/18 15:29 IMPRESSION: 1. No pneumothorax. No displaced rib fracture. 2. 2 curvilinear metallic densities overlie right lateral chest, possibly surgical clips although foreign body is not excluded. Recommend correlation with patient symptoms/ physical exam. Assessment & Plan - Diagnosis (1) Decubitus ulcer of sacral region, stage 1 Is this a current diagnosis for this admission?: Yes Plan: Main therapy is avoiding prolonged pressure with dry cushioned dressings and frequent turning and early ambulation. With prolonged pressure his current ulcer will convert to a stage II very quickly. I do not see any role for surgical debridement at this time. If things change please reconsult. Recommend physical therapy to get patient ambulatory with a walker and assistance as soon as possible.
--- NOTE | 2018-07-11 16:18 | EKG REPORT ---
SEVERITY:- ABNORMAL ECG - ATRIAL FIBRILLATION, V-RATE 65-106 ABNORMAL T, CONSIDER ISCHEMIA, LATERAL LEADS : Confirmed by: Radha Pena MD 11-Jul-2018 16:16:45
[2018-07-11] MEDS: SIMVASTATIN 40 MG TABLET PO SCH (17:00)
[2018-07-12] MEDS: PIPERACILLIN SODIUM/TAZOBACTAM 3.375 GM in NORMAL SALINE 100 ML IV SCH ×4 (03:17→22:01)
[2018-07-12] MEDS: PANTOPRAZOLE SODIUM 40 MG TABLET.DR PO SCH ×2 (05:33→18:15)
[2018-07-12 06:15] LABS: ABSOLUTE EOSINOPHILS # (AUTO) 0.2 10^3/uL (0.0-0.6); ABSOLUTE MONOCYTES (AUTO) 0.5 10^3/uL (0.1-1.4); ABSOLUTE NEUT (AUTO) 4.3 10^3/uL (1.7-8.2); BASOPHILS % (AUTO) 0.8 % (0-2); HEMATOCRIT 32.4 % (37.9-51.0); HEMOGLOBIN 11.1 g/dL (13.5-17.0); LYMPHOCYTES % (AUTO) 16.3 % (13-45); MEAN CORPUSCULAR HEMOGLOBIN 31.5 pg (27.0-33.4); MEAN CORPUSCULAR HGB CONC 34.4 g/dL (32.0-36.0); MEAN CORPUSCULAR VOLUME 91 fl (80-97); MONOCYTES % (AUTO) 8.6 % (3-13); PLATELET COUNT 182 10^3/uL (150-450); RED BLOOD COUNT 3.54 10^6/uL (4.35-5.55); RED CELL DISTRIBUTION WIDTH 15.3 % (11.5-14.0); SEGMENTED NEUTROPHILS % (AUTO) 71.3 % (42-78); TOTAL CELLS COUNTED % (AUTO) 100 %
[2018-07-12 07:45] LABS: ALANINE AMINOTRANSFERASE 34 U/L (21-72); ALBUMIN 2.8 g/dL (3.5-5.0); ALKALINE PHOSPHATASE 40 U/L (38-126); ANION GAP 8 (5-19); ASPARTATE AMINO TRANSFERASE 24 U/L (17-59); BILIRUBIN,DIRECT 0.4 mg/dL (0.0-0.4); BILIRUBIN,TOTAL 1.1 mg/dL (0.2-1.3); BLOOD UREA NITROGEN 12 mg/dL (7-20); CALCIUM 9.1 mg/dL (8.4-10.2); CARBON DIOXIDE 30 mmol/L (22-30); CHLORIDE 100 mmol/L (98-107); GLUCOSE 162 mg/dL (75-110); POTASSIUM 3.3 mmol/L (3.6-5.0); SODIUM 137.6 mmol/L (137-145); TOTAL PROTEIN 5.1 g/dL (6.3-8.2)
[2018-07-12] MEDS: MODAFINIL 100 MG TABLET PO SCH (07:58)
[2018-07-12] MEDS: INSULIN LISPRO 100 UNIT/ML 3 ML VIAL SUBCUT SCH ×4 (07:59→22:15)
[2018-07-12 10:33] LABS: VANCOMYCIN,TROUGH 13.8 ug/mL (5.0-20.0)
--- NOTE | 2018-07-12 10:35 | PDOC PROGRESS REPORT ---
Subjective Progress Note for:: 07/12/18 Subjective:: 87 year old male with history of dementia, atrial fibrillation, history of VA with 2 bypasses, hypertension, diabetes mellitus brought to the emergency room by the family members after a fall. Patient lives independently but close to his son's house they usually watch him to the monitors and they do not know how long the patient is on the floor brought to the emergency room the work-up indicates patient might have WILY and also has a infected decubitus wound on the on the left buttock hypotensive 1.5 L of IV fluids are given in the emergency room CK was 38 systolic blood pressure by the EMS and the initial in the ER is 70 blood pressure was improved to 112/74 medical consult was called for admission for possible cellulitis of the left buttock also. Went to evaluate the patient's son was at bedside able to provide little bit of information on examination found to have infected left buttock decubitus ulceration. Patient blood pressure is 03/03/1968. Plan to admit him the hospital for IV hydration and for IV antibiotic therapy and physical therapy. 07/11/[id number]-bqxe-old male with history of atrial fibrillation on apixaban, dementia, coronary artery disease with bypass, sacral decubitus brought in by the family members with history of questionable fall found to be hypotensive. On examination in the emergency room looks like decubitus ulcer is infected start an IV antibiotic therapy cultures are requested I spoke to Dr. Montague this morning, he agreed to see the patient. Patient is complaining of mild headache this morning and if the time the change the dressing on the sacral wound is saying he has a lot of pain started on Percocet 1 tablet every 4 as needed for pain. 07/12/[id number]-vhpl-old male admitted with questionable history of fall and he has history of atrial fibrillation on apixaban, dementia coronary artery disease with bypass sacral decubitus. He was found to be hypotensive in the emergency room. Latest blood pressure is 109/77 with a heart rate of 101. Physical therapy is working with the pt. Patient may need rehab placement. no Acute events in the last 24 hours. Cultures are negative. Reason For Visit: INFECTED DECUBITUS Physical Exam Vital Signs: Temp Pulse Resp BP Pulse Ox 98.8 F 100 16 99/76 L 93 07/12/18 08:00 07/12/18 08:00 07/12/18 08:00 07/12/18 08:00 07/12/18 09:12 Intake & Output 07/11/18 07/12/18 07/13/18 06:59 06:59 06:59 Intake Total 2650 3140 100 Output Total 850 1400 Balance 1800 1740 100 Weight 80.1 kg 80.4 kg General appearance: PRESENT: no acute distress Head exam: PRESENT: atraumatic Eye exam: PRESENT: PERRLA Mouth exam: PRESENT: moist, tongue midline Neck exam: ABSENT: carotid bruit, JVD, lymphadenopathy, thyromegaly Respiratory exam: PRESENT: clear to auscultation last. ABSENT: rales, rhonchi, wheezes Cardiovascular exam: PRESENT: irregular rhythm, systolic murmur, tachycardia. ABSENT: diastolic murmur, rubs Vascular exam: PRESENT: normal capillary refill GI/Abdominal exam: PRESENT: normal bowel sounds, soft. ABSENT: distended, guarding, mass, organolmegaly, rebound, tenderness Rectal exam: PRESENT: deferred Extremities exam: PRESENT: full ROM. ABSENT: calf tenderness, clubbing, pedal edema Neurological exam: PRESENT: alert, awake, CN II-XII grossly intact Psychiatric exam: PRESENT: appropriate affect, normal mood. ABSENT: homicidal ideation, suicidal ideation Skin exam: PRESENT: other - Patient has a sacral decubitus probably stage I Results Laboratory Results: 07/12/18 05:20 07/12/18 09:41 07/12/18 07/12/18 07/12/18 05:20 05:20 07:11 WBC 6.0 RBC 3.54 L Hgb 11.1 L Hct 32.4 L MCV 91 MCH 31.5 MCHC 34.4 RDW 15.3 H Plt Count 182 Seg Neutrophils % 71.3 Lymphocytes % 16.3 Monocytes % 8.6 Eosinophils % 3.0 Basophils % 0.8 Absolute Neutrophils 4.3 Absolute Lymphocytes 1.0 Absolute Monocytes 0.5 Absolute Eosinophils 0.2 Absolute Basophils 0.0 Sodium Cancelled 137.6 Potassium Cancelled 3.3 L Chloride Cancelled 100 Carbon Dioxide Cancelled 30 Anion Gap Cancelled 8 BUN Cancelled 12 Creatinine Cancelled 0.69 Est GFR ( Amer) Cancelled > 60 Est GFR (Non-Af Amer) Cancelled > 60 Glucose Cancelled 162 H Calcium Cancelled 9.1 Magnesium Cancelled 1.6 Total Bilirubin Cancelled 1.1 AST Cancelled 24 ALT Cancelled 34 Alkaline Phosphatase Cancelled 40 Total Protein Cancelled 5.1 L Albumin Cancelled 2.8 L 07/12/18 09:41 WBC RBC Hgb Hct MCV MCH MCHC RDW Plt Count Seg Neutrophils % Lymphocytes % Monocytes % Eosinophils % Basophils % Absolute Neutrophils Absolute Lymphocytes Absolute Monocytes Absolute Eosinophils Absolute Basophils Sodium Potassium Chloride Carbon Dioxide Anion Gap BUN Creatinine 0.79 Est GFR ( Amer) > 60 Est GFR (Non-Af Amer) > 60 Glucose Calcium Magnesium Total Bilirubin AST ALT Alkaline Phosphatase Total Protein Albumin 07/10/18 16:56 Clean Catch Midstream Urine Culture - Final Mixed Urogenital Jess 07/10/18 07/10/18 07/10/18 16:56 16:56 19:43 Creatine Kinase 38 L 34 L CK-MB (CK-2) Troponin I 0.016 NT-Pro-B Natriuret Pep 07/10/18 07/11/18 07/11/18 19:43 02:19 02:19 Creatine Kinase 27 L CK-MB (CK-2) 0.91 0.83 Troponin I 0.016 0.019 NT-Pro-B Natriuret Pep 07/11/18 07/11/18 08:27 08:27 Creatine Kinase 26 L CK-MB (CK-2) 0.80 Troponin I 0.020 NT-Pro-B Natriuret Pep 3430 H Impressions: Ribs w/Chest X-Ray 07/10/18 15:29 IMPRESSION: 1. No pneumothorax. No displaced rib fracture. 2. 2 curvilinear metallic densities overlie right lateral chest, possibly surgical clips although foreign body is not excluded. Recommend correlation with patient symptoms/ physical exam. Assessment and Plan - Diagnosis (1) Hypotension Qualifiers: Hypotension type: unspecified hypotension type Qualified Code(s): I95.9 - Hypotension, unspecified Is this a current diagnosis for this admission?: Yes Plan: 07/10/2018-patient going to be admitted for hypotension at the time of arrival systolic blood pressure is 70 after giving 1-1/2 L fluids blood pressure is 120/70. Associated with history of fall. Potential most likely secondary to medications he is on 3 antihypertensive at home. To hold home blood pressure medications at this point continue IV fluids normal saline 75 cc/h GI prophylaxis DVT prophylaxis initiated aspiration fall seizure precautions are initiated blood cultures wound cultures urine cultures are requested to start on Zosyn and IV vancomycin. Physical therapy consult was requested. 07/11/2018-patient came in with hypotension SBP 70 in the emergency room. With IV fluids and after holding his home medications blood pressure is improved to 118/60. To discontinue IV fluids from today. Hypotension may be secondary to poor oral intake, infected sacral decubitus. 07/12/[id number]-erue-old male admitted for hypotension at the time of admission systolic blood pressure is 70. With IV fluids blood pressure is improved today it is 109/77. Hypotension most likely secondary to poor oral intake. (2) Cellulitis Qualifiers: Site of cellulitis: extremity Site of cellulitis of extremity: lower extremity Laterality: left Qualified Code(s): L03.116 - Cellulitis of left lower limb Is this a current diagnosis for this admission?: No Plan: 07/11/2018-patient was admitted with infected probably stage II sacral decubitus surgical consult was requested started on IV antibiotic therapy and requested to change the body position every 2 hours. Plan is to continue to follow the patient regular basis. 07/12/2018-patient came in with stage I sacral decubitus erythematous no and irritation and getting treatment with with vancomycin and Zosyn cultures are negative afebrile. Plan is to continue the antibiotics for now. Surgical consult was done at this time there is no need for debridement as per the Dr MONTAGUE. (3) Type 2 diabetes mellitus Qualifiers: Diabetes mellitus residential insulin use: without residential use Diabetes mellitus complication status: without complication Qualified Code(s): E11.9 - Type 2 diabetes mellitus without complications Is this a current diagnosis for this admission?: No Plan: 07/10/2018-patient history of type 2 diabetes mellitus to start him on insulin sliding scale before meals and at bedtime to check hemoglobin A1c in a.m. 07/11/2018-patient has history of type 2 diabetes mellitus on glimepiride at home he is also receiving metformin along with Januvia presently on insulin sliding scale latest blood sugar is 265. Plan is to check the hemoglobin A1c. If nec essary we are going to start a small dose of Lantus during the hospital stay. 07/12/2018-patient has history of type 2 diabetes mellitus hemoglobin A1c came back 11.5 today latest blood sugar is 162 and he is on glimepiride and metformin at home dose medications are on hold presently on insulin sliding scale. Continue to check his blood sugars before meals and at bedtime. (4) Fall Is this a current diagnosis for this admission?: Yes Plan: 07/10/2018 1 patient came in with history of fall CK is 38 plan to do the CT head without contrast aspiration fall seizure precautions are requested PT consult was requested. 07/11/2018-she came in with history of fall to do the CT head without contrast today. Focal neurological deficits on examination. No obvious signs of trauma. 07/12/2018-patient admitted with history of fall. No focal neurological deficits. No bruises no obvious injuries. Patient status is stable. (5) Atrial fibrillation Is this a current diagnosis for this admission?: No Plan: 07/10/2018-history of atrial fibrillation family is not sure whether he is on anticoagulation or not presently heart rate is controlled still in A. fib asymptomatic probably fall may be contributing patient of the A. fib. 07/11/2018-patient has history of atrial fibrillation on Eliquis. 07/12/2018-patient has history of fibrillation on Eliquis at home which was continued during the hospital stay. - Time Time Spent with patient: 25-34 minutes Medications reviewed and adjusted accordingly: Yes Anticipated discharge: SNF
[2018-07-12] MEDS: LORATADINE 10 MG TABLET PO SCH (11:08)
[2018-07-12] MEDS: ISOSORBIDE MONONITRATE 60 MG TAB.ER.24H PO SCH (11:08)
[2018-07-12] MEDS: EZETIMIBE 10 MG TABLET PO SCH (11:08)
[2018-07-12] MEDS: METOPROLOL TARTRATE 100 MG TABLET PO SCH ×2 (11:08→22:00)
[2018-07-12] MEDS: DOCUSATE SODIUM 100 MG CAPSULE PO SCH ×2 (11:09→18:15)
[2018-07-12] MEDS: POTASSIUM CHLORIDE 10 MEQ CAPSULE.ER PO SCH ×2 (11:09→22:00)
[2018-07-12] MEDS: GABAPENTIN 300 MG CAPSULE PO SCH ×2 (11:09→22:00)
[2018-07-12] MEDS: MEMANTINE PO SCH (11:10)
[2018-07-12] MEDS: DONEPEZIL PO SCH (11:10)
[2018-07-12] MEDS: ENOXAPARIN SODIUM INJ 40 MG/0.4 ML DISP.SYRIN SUBCUT SCH (11:11)
--- NOTE | 2018-07-12 11:16 | ADVANCED CARE ---
- Diagnosis (1) Hypotension Diagnosis Current: Yes (2) Cellulitis Diagnosis Current: Yes (3) Type 2 diabetes mellitus Diagnosis Current: Yes (4) Fall Diagnosis Current: Yes (5) Atrial fibrillation Diagnosis Current: Yes (6) Dementia Diagnosis Current: Yes Attendance: Patient's daughter and son Resuscitation Status: Do Not Resuscitate Discussion: Patient has a living well on the daughter has power of bankruptcy attorney. We discussed the prognosis and overall physical condition. Care Planning Goals: Patient's family agreed that patient needs to go to a skilled rehab facility for short-term. Time Spent: More than 20 minutes
[2018-07-12] MEDS: VANCOMYCIN HCL 1,000 MG in DEXTROSE 5%-WATER 250 ML IV SCH ×2 (12:10→22:00)
[2018-07-12] MEDS: SIMVASTATIN 40 MG TABLET PO SCH (18:15)
[2018-07-12] MEDS ORDERED: INSULIN GLARGINE,HUM.REC.ANLOG 1,000 UNIT/10 ML VIAL SUBCUT SCH (22:00)
[2018-07-12] MEDS: ACETAMINOPHEN 325 MG TABLET PO PRN (22:04)
[2018-07-13] MEDS: PIPERACILLIN SODIUM/TAZOBACTAM 3.375 GM in NORMAL SALINE 100 ML IV SCH ×4 (03:30→21:56)
[2018-07-13 05:28] LABS: ABSOLUTE EOSINOPHILS # (AUTO) 0.2 10^3/uL (0.0-0.6); ABSOLUTE LYMPHOCYTES (AUTO) 1.2 10^3/uL (0.5-4.7); ABSOLUTE MONOCYTES (AUTO) 0.4 10^3/uL (0.1-1.4); ABSOLUTE NEUT (AUTO) 3.4 10^3/uL (1.7-8.2); BASOPHILS % (AUTO) 0.7 % (0-2); EOSINOPHILS % (AUTO) 3.6 % (0-6); HEMATOCRIT 33.9 % (37.9-51.0); HEMOGLOBIN 11.6 g/dL (13.5-17.0); MEAN CORPUSCULAR HEMOGLOBIN 30.9 pg (27.0-33.4); MEAN CORPUSCULAR HGB CONC 34.3 g/dL (32.0-36.0); MEAN CORPUSCULAR VOLUME 90 fl (80-97); MONOCYTES % (AUTO) 7.7 % (3-13); PLATELET COUNT 193 10^3/uL (150-450); RED BLOOD COUNT 3.76 10^6/uL (4.35-5.55); RED CELL DISTRIBUTION WIDTH 15.1 % (11.5-14.0); TOTAL CELLS COUNTED % (AUTO) 100 %; WHITE BLOOD COUNT 5.2 10^3/uL (4.0-10.5)
[2018-07-13 05:47] LABS: ALANINE AMINOTRANSFERASE 35 U/L (21-72); ALBUMIN 2.8 g/dL (3.5-5.0); ALKALINE PHOSPHATASE 48 U/L (38-126); ANION GAP 8 (5-19); ASPARTATE AMINO TRANSFERASE 33 U/L (17-59); BILIRUBIN,DIRECT 0.4 mg/dL (0.0-0.4); BILIRUBIN,TOTAL 1.1 mg/dL (0.2-1.3); BLOOD UREA NITROGEN 16 mg/dL (7-20); CARBON DIOXIDE 30 mmol/L (22-30); CHLORIDE 102 mmol/L (98-107); GLUCOSE 240 mg/dL (75-110); SODIUM 139.9 mmol/L (137-145); TOTAL PROTEIN 5.4 g/dL (6.3-8.2)
[2018-07-13 06:01] LABS: POTASSIUM 4.2 mmol/L (3.6-5.0)
[2018-07-13] MEDS: PANTOPRAZOLE SODIUM 40 MG TABLET.DR PO SCH ×2 (06:49→17:20)
[2018-07-13] MEDS: INSULIN LISPRO 100 UNIT/ML 3 ML VIAL SUBCUT SCH ×4 (09:14→21:59)
--- NOTE | 2018-07-13 09:33 | PDOC PROGRESS REPORT ---
Subjective Progress Note for:: 07/13/18 Subjective:: 87 year old male with history of dementia, atrial fibrillation, history of [place] with 2 bypasses, hypertension, diabetes mellitus brought to the emergency room by the family members after a fall. Patient lives independently but close to his son's house they usually watch him to the monitors and they do not know how long the patient is on the floor brought to the emergency room the work-up indicates patient might have WILY and also has a infected decubitus wound on the on the left buttock hypotensive 1.5 L of IV fluids are given in the emergency room CK was 38 systolic blood pressure by the EMS and the initial in the ER is 70 blood pressure was improved to 112/74 medical consult was called for admission for possible cellulitis of the left buttock also. Went to evaluate the patient's son was at bedside able to provide little bit of information on examination found to have infected left buttock decubitus ulceration. Patient blood pressure is 03/03/1968. Plan to admit him the hospital for IV hydration and for IV antibiotic therapy and physical therapy. 07/11/[id number]-ncvo-old male with history of atrial fibrillation on apixaban, dementia, coronary artery disease with bypass, sacral decubitus brought in by the family members with history of questionable fall found to be hypotensive. On examination in the emergency room looks like decubitus ulcer is infected start an IV antibiotic therapy cultures are requested I spoke to Dr. Montague this morning, he agreed to see the patient. Patient is complaining of mild headache this morning and if the time the change the dressing on the sacral wound is saying he has a lot of pain started on Percocet 1 tablet every 4 as needed for pain. 07/12/[id number]-jfxq-old male admitted with questionable history of fall and he has history of atrial fibrillation on apixaban, dementia coronary artery disease with bypass sacral decubitus. He was found to be hypotensive in the emergency room. Latest blood pressure is 109/77 with a heart rate of 101. Physical therapy is working with the pt. Patient may need rehab placement. no Acute events in the last 24 hours. Cultures are negative. 07/13/[id number]-qwvq-old male with a sacral decubitus getting antibiotic therapy also admitted with history of fall, with history of atrial fibrillation on apixaban, dementia, coronary artery disease with bypass doing well waiting for the placement. His CODE STATUS is DNR/DNI. No acute events in the last 24 hours. Patient is alert oriented communicating well complaining of 4 that is not good quality. Reason For Visit: INFECTED DECUBITUS Physical Exam Vital Signs: Temp Pulse Resp BP Pulse Ox 97.7 F 101 H 19 134/80 H 92 07/13/18 08:00 07/13/18 08:00 07/13/18 08:00 07/13/18 08:00 07/13/18 08:00 Intake & Output 07/12/18 07/13/18 07/14/18 06:59 06:59 06:59 Intake Total 3140 1733 Output Total 1400 700 Balance 1740 1033 Weight 80.4 kg 85.1 kg General appearance: PRESENT: no acute distress, well-developed Head exam: PRESENT: atraumatic Eye exam: PRESENT: PERRLA Mouth exam: PRESENT: moist, tongue midline Teeth exam: PRESENT: poor dentation Neck exam: ABSENT: carotid bruit, JVD, lymphadenopathy, thyromegaly Respiratory exam: PRESENT: decreased breath sounds Cardiovascular exam: PRESENT: RRR. ABSENT: diastolic murmur, rubs, systolic murmur GI/Abdominal exam: PRESENT: normal bowel sounds, soft. ABSENT: distended, guarding, mass, organolmegaly, rebound, tenderness Rectal exam: PRESENT: deferred Extremities exam: PRESENT: full ROM. ABSENT: calf tenderness, clubbing, pedal edema Neurological exam: PRESENT: alert, awake, oriented to person, oriented to place, oriented to time, oriented to situation, CN II-XII grossly intact. ABSENT: motor sensory deficit Psychiatric exam: PRESENT: appropriate affect, normal mood. ABSENT: homicidal ideation, suicidal ideation Results Laboratory Results: 07/13/18 04:09 07/13/18 04:09 07/12/18 07/13/18 07/13/18 09:41 04:09 04:09 WBC 5.2 RBC 3.76 L Hgb 11.6 L Hct 33.9 L MCV 90 MCH 30.9 MCHC 34.3 RDW 15.1 H Plt Count 193 Seg Neutrophils % 65.0 Lymphocytes % 23.0 Monocytes % 7.7 Eosinophils % 3.6 Basophils % 0.7 Absolute Neutrophils 3.4 Absolute Lymphocytes 1.2 Absolute Monocytes 0.4 Absolute Eosinophils 0.2 Absolute Basophils 0.0 Sodium 139.9 Potassium 4.2 Chloride 102 Carbon Dioxide 30 Anion Gap 8 BUN 16 Creatinine 0.79 0.91 Est GFR ( Amer) > 60 > 60 Est GFR (Non-Af Amer) > 60 > 60 Glucose 240 H Calcium 9.0 Magnesium 1.9 Total Bilirubin 1.1 AST 33 ALT 35 Alkaline Phosphatase 48 Total Protein 5.4 L Albumin 2.8 L 07/10/18 07/10/18 07/10/18 16:56 16:56 19:43 Creatine Kinase 38 L 34 L CK-MB (CK-2) Troponin I 0.016 NT-Pro-B Natriuret Pep 07/10/18 07/11/18 07/11/18 19:43 02:19 02:19 Creatine Kinase 27 L CK-MB (CK-2) 0.91 0.83 Troponin I 0.016 0.019 NT-Pro-B Natriuret Pep 07/11/18 07/11/18 08:27 08:27 Creatine Kinase 26 L CK-MB (CK-2) 0.80 Troponin I 0.020 NT-Pro-B Natriuret Pep 3430 H Impressions: Ribs w/Chest X-Ray 07/10/18 15:29 IMPRESSION: 1. No pneumothorax. No displaced rib fracture. 2. 2 curvilinear metallic densities overlie right lateral chest, possibly surgical clips although foreign body is not excluded. Recommend correlation with patient symptoms/ physical exam. Assessment and Plan - Diagnosis (1) Hypotension Qualifiers: Hypotension type: unspecified hypotension type Qualified Code(s): I95.9 - Hypotension, unspecified Is this a current diagnosis for this admission?: Yes Plan: 07/10/2018-patient going to be admitted for hypotension at the time of arrival systolic blood pressure is 70 after giving 1-1/2 L fluids blood pressure is 120/70. Associated with history of fall. Potential most likely secondary to medications he is on 3 antihypertensive at home. To hold home blood pressure medications at this point continue IV fluids normal saline 75 cc/h GI prophylaxis DVT prophylaxis initiated aspiration fall seizure precautions are initiated blood cultures wound cultures urine cultures are requested to start on Zosyn and IV vancomycin. Physical therapy consult was requested. 07/11/2018-patient came in with hypotension SBP 70 in the emergency room. With IV fluids and after holding his home medications blood pressure is improved to 118/60. To discontinue IV fluids from today. Hypotension may be secondary to poor oral intake, infected sacral decubitus. 07/12/[id number]-rkjy-old male admitted for hypotension at the time of admission systolic blood pressure is 70. With IV fluids blood pressure is improved today it is 109/77. Hypotension most likely secondary to poor oral intake. 07/13/2018-blood pressure today is 117/69 stable. Hypotension is resolved. (2) Cellulitis Qualifiers: Site of cellulitis: extremity Site of cellulitis of extremity: lower extremity Laterality: left Qualified Code(s): L03.116 - Cellulitis of left lower limb Is this a current diagnosis for this admission?: No Plan: 07/11/2018-patient was admitted with infected probably stage II sacral decubitus surgical consult was requested started on IV antibiotic therapy and requested to change the body position every 2 hours. Plan is to continue to follow the patient regular basis. 07/12/2018-patient came in with stage I sacral decubitus erythematous no and irritation and getting treatment with with vancomycin and Zosyn cultures are negative afebrile. Plan is to continue the antibiotics for now. Surgical consult was done at this time there is no need for debridement as per the Dr MONTAGUE. 07/13/2018-patient was admitted with a stage I rectal sacral decubitus surgical consult was done the recommendation is no need for debridement antibiotics are continued patient is afebrile with changing the body patient every 2 hours blood cultures are negative so far. (3) Type 2 diabetes mellitus Qualifiers: Diabetes mellitus detention insulin use: without detention use Diabetes m ellitus complication status: without complication Qualified Code(s): E11.9 - Type 2 diabetes mellitus without complications Is this a current diagnosis for this admission?: No Plan: 07/10/2018-patient history of type 2 diabetes mellitus to start him on insulin sliding scale before meals and at bedtime to check hemoglobin A1c in a.m. 07/11/2018-patient has history of type 2 diabetes mellitus on glimepiride at home he is also receiving metformin along with Januvia presently on insulin sliding scale latest blood sugar is 265. Plan is to check the hemoglobin A1c. If necessary we are going to start a small dose of Lantus during the hospital stay. 07/12/2018-patient has history of type 2 diabetes mellitus hemoglobin A1c came back 11.5 today latest blood sugar is 162 and he is on glimepiride and metformin at home dose medications are on hold presently on insulin sliding scale. Continue to check his blood sugars before meals and at bedtime. 07/13/2018-this elderly male with history of type 2 diabetes mellitus with blood sugar of 240 this morning. Hemoglobin A1c is 11.5. He is taking glimepiride and metformin at home those are on hold. Presently on insulin sliding scale and he is on Lantus 10 units twice daily. Plan is to increase the Lantus to 15 twice a day. (4) Fall Is this a current diagnosis for this admission?: Yes Plan: 07/10/2018 1 patient came in with history of fall CK is 38 plan to do the CT head without contrast aspiration fall seizure precautions are requested PT consult was requested. 07/11/2018-she came in with history of fall to do the CT head without contrast today. Focal neurological deficits on examination. No obvious signs of trauma. 07/12/2018-patient admitted with history of fall. No focal neurological deficits. No bruises no obvious injuries. Patient status is stable. 07/13/2018-family is requesting for rehab placement physical therapy is on the case. (5) Atrial fibrillation Is this a current diagnosis for this admission?: No Plan: 07/10/2018-history of atrial fibrillation family is not sure whether he is on a nticoagulation or not presently heart rate is controlled still in A. fib asymptomatic probably fall may be contributing patient of the A. fib. 07/11/2018-patient has history of atrial fibrillation on Eliquis. 07/12/2018-patient has history of fibrillation on Eliquis at home which was continued during the hospital stay. 07/13/2018-patient has history of atrial fibrillation on apixaban heart rate is around 110. Plan is to review his medications and adjust the doses. - Time Time Spent with patient: 25-34 minutes Medications reviewed and adjusted accordingly: Yes Anticipated discharge: SNF
[2018-07-13] MEDS ORDERED: INSULIN GLARGINE,HUM.REC.ANLOG 1,000 UNIT/10 ML VIAL SUBCUT SCH (10:00)
[2018-07-13] MEDS ORDERED: INSULIN GLARGINE,HUM.REC.ANLOG 1,000 UNIT/10 ML VIAL (PYX) SUBCUT ONE (10:15)
[2018-07-13] MEDS: MODAFINIL 100 MG TABLET PO SCH (10:51)
[2018-07-13] MEDS: POTASSIUM CHLORIDE 10 MEQ CAPSULE.ER PO SCH ×2 (10:51→21:56)
[2018-07-13] MEDS: ISOSORBIDE MONONITRATE 60 MG TAB.ER.24H PO SCH (10:51)
[2018-07-13] MEDS: LORATADINE 10 MG TABLET PO SCH (10:51)
[2018-07-13] MEDS: METOPROLOL TARTRATE 100 MG TABLET PO SCH ×2 (10:52→21:59)
[2018-07-13] MEDS: GABAPENTIN 300 MG CAPSULE PO SCH ×2 (10:52→21:59)
[2018-07-13] MEDS: MEMANTINE PO SCH (10:53)
[2018-07-13] MEDS: DONEPEZIL PO SCH (10:53)
[2018-07-13] MEDS: EZETIMIBE 10 MG TABLET PO SCH (10:53)
[2018-07-13] MEDS: VANCOMYCIN HCL 1,000 MG in DEXTROSE 5%-WATER 250 ML IV SCH ×2 (10:53→21:57)
[2018-07-13] MEDS: DOCUSATE SODIUM 100 MG CAPSULE PO SCH ×2 (11:16→17:16)
[2018-07-13] MEDS: ENOXAPARIN SODIUM INJ 40 MG/0.4 ML DISP.SYRIN SUBCUT SCH (11:16)
[2018-07-13] MEDS: SIMVASTATIN 40 MG TABLET PO SCH (17:20)
[2018-07-13] MEDS: INSULIN GLARGINE,HUM.REC.ANLOG 1,000 UNIT/10 ML VIAL SUBCUT SCH (21:59)
[2018-07-14] MEDS: PIPERACILLIN SODIUM/TAZOBACTAM 3.375 GM in NORMAL SALINE 100 ML IV SCH ×4 (03:30→23:02)
[2018-07-14] MEDS: PANTOPRAZOLE SODIUM 40 MG TABLET.DR PO SCH ×2 (05:31→16:39)
[2018-07-14] MEDS: ACETAMINOPHEN 325 MG TABLET PO PRN (07:16)
--- NOTE | 2018-07-14 09:14 | PDOC PROGRESS REPORT ---
Subjective Progress Note for:: 07/14/18 Subjective:: 87 year old male with history of dementia, atrial fibrillation, history of CT with 2 bypasses, hypertension, diabetes mellitus brought to the emergency room by the family members after a fall. Patient lives independently but close to his son's house they usually watch him to the monitors and they do not know how long the patient is on the floor brought to the emergency room the work-up indicates patient might have WILY and also has a infected decubitus wound on the on the left buttock hypotensive 1.5 L of IV fluids are given in the emergency room CK was 38 systolic blood pressure by the EMS and the initial in the ER is 70 blood pressure was improved to 112/74 medical consult was called for admission for possible cellulitis of the left buttock also. Went to evaluate the patient's son was at bedside able to provide little bit of information on examination found to have infected left buttock decubitus ulceration. Patient blood pressure is 03/03/1968. Plan to admit him the hospital for IV hydration and for IV antibiotic therapy and physical therapy. 07/11/[id number]-ducx-old male with history of atrial fibrillation on apixaban, dementia, coronary artery disease with bypass, sacral decubitus brought in by the family members with history of questionable fall found to be hypotensive. On examination in the emergency room looks like decubitus ulcer is infected start an IV antibiotic therapy cultures are requested I spoke to Dr. Montague this morning, he agreed to see the patient. Patient is complaining of mild headache this morning and if the time the change the dressing on the sacral wound is saying he has a lot of pain started on Percocet 1 tablet every 4 as needed for pain. 07/12/[id number]-zbav-old male admitted with questionable history of fall and he has history of atrial fibrillation on apixaban, dementia coronary artery disease with bypass sacral decubitus. He was found to be hypotensive in the emergency room. Latest blood pressure is 109/77 with a heart rate of 101. Physical therapy is working with the pt. Patient may need rehab placement. no Acute events in the last 24 hours. Cultures are negative. 07/13/[id number]-zfcx-old male with a sacral decubitus getting antibiotic therapy also admitted with history of fall, with history of atrial fibrillation on apixaban, dementia, coronary artery disease with bypass doing well waiting for the placement. His CODE STATUS is DNR/DNI. No acute events in the last 24 hours. Patient is alert oriented communicating well complaining of 4 that is not good quality. 07/14/[id number]-cdcx-old male admitted with history of fall and the work-up was negative for fractures and alert awake communicating okay. He has a stage I sacral decubitus looks like infected and surgical consult was done presently on IV vancomycin and Zosyn cultures are negative plan is to continue the antibiotics at least for 1 more day and discontinue. The family agreed for placement. Patient status is DNR/DNI. Reason For Visit: INFECTED DECUBITUS Physical Exam Vital Signs: Temp Pulse Resp BP Pulse Ox 98.0 F 92 21 H 127/71 H 94 07/14/18 08:00 07/14/18 08:00 07/14/18 08:00 07/14/18 08:00 07/14/18 08:00 Intake & Output 07/13/18 07/14/18 07/15/18 06:59 06:59 06:59 Intake Total 1733 2720 Output Total 700 Balance 1033 2720 Weight 85.1 kg 81.4 kg General appearance: PRESENT: no acute distress, well-developed Head exam: PRESENT: atraumatic Eye exam: PRESENT: PERRLA Mouth exam: PRESENT: moist, tongue midline Neck exam: ABSENT: carotid bruit, JVD, lymphadenopathy, thyromegaly Respiratory exam: PRESENT: clear to auscultation last. ABSENT: rales, rhonchi, wheezes Cardiovascular exam: PRESENT: irregular rhythm, systolic murmur Vascular exam: PRESENT: normal capillary refill GI/Abdominal exam: PRESENT: normal bowel sounds, soft. ABSENT: distended, guarding, mass, organolmegaly, rebound, tenderness Rectal exam: PRESENT: deferred Extremities exam: PRESENT: full ROM. ABSENT: calf tenderness, clubbing, pedal edema Neurological exam: PRESENT: alert, awake, oriented to person, oriented to place, oriented to time, oriented to situation, CN II-XII grossly intact. ABSENT: motor sensory deficit Psychiatric exam: PRESENT: appropriate affect, normal mood. ABSENT: homicidal ideation, suicidal ideation Results Laboratory Results: 07/10/18 07/10/18 07/10/18 16:56 16:56 19:43 Creatine Kinase 38 L 34 L CK-MB (CK-2) Troponin I 0.016 NT-Pro-B Natriuret Pep 07/10/18 07/11/18 07/11/18 19:43 02:19 02:19 Creatine Kinase 27 L CK-MB (CK-2) 0.91 0.83 Troponin I 0.016 0.019 NT-Pro-B Natriuret Pep 07/11/18 07/11/18 08:27 08:27 Creatine Kinase 26 L CK-MB (CK-2) 0.80 Troponin I 0.020 NT-Pro-B Natriuret Pep 3430 H Impressions: Ribs w/Chest X-Ray 07/10/18 15:29 IMPRESSION: 1. No pneumothorax. No displaced rib fracture. 2. 2 curvilinear metallic densities overlie right lateral chest, possibly surgical clips although foreign body is not excluded. Recommend correlation with patient symptoms/ physical exam. Assessment and Plan - Diagnosis (1) Hypotension Qualifiers: Hypotension type: unspecified hypotension type Qualified Code(s): I95.9 - Hypotension, unspecified Is this a current diagnosis for this admission?: Yes Plan: 07/10/2018-patient going to be admitted for hypotension at the time of arrival systolic blood pressure is 70 after giving 1-1/2 L fluids blood pressure is 120/70. Associated with history of fall. Potential most likely secondary to medications he is on 3 antihypertensive at home. To hold home blood pressure medications at this point continue IV fluids normal saline 75 cc/h GI prophylaxis DVT prophylaxis initiated aspiration fall seizure precautions are initiated blood cultures wound cultures urine cultures are requested to start on Zosyn and IV vancomycin. Physical therapy consult was requested. 07/11/2018-patient came in with hypotension SBP 70 in the emergency room. With IV fluids and after holding his home medications blood pressure is improved to 118/60. To discontinue IV fluids from today. Hypotension may be secondary to poor oral intake, infected sacral decubitus. 07/12/[id number]-nbmf-old male admitted for hypotension at the time of admission systolic blood pressure is 70. With IV fluids blood pressure is improved today it is 109/77. Hypotension most likely secondary to poor oral intake. 07/13/2018-blood pressure today is 117/69 stable. Hypotension is resolved. 07/14/2018-patient blood pressure today is 118/66 stable. Plan is to continue the present management hypotension is resolved. (2) Cellulitis Qualifiers: Site of cellulitis: extremity Site of cellulitis of extremity: lower extremity Laterality: left Qualified Code(s): L03.116 - Cellulitis of left lower limb Is this a current diagnosis for this admission?: No Plan: 07/11/2018-patient was admitted with infected probably stage II sacral decubitus surgical consult was requested started on IV antibiotic therapy and requested to change the body position every 2 hours. Plan is to continue to follow the patient regular basis. 07/12/2018-patient came in with stage I sacral decubitus erythematous no and irritation and getting treatment with with vancomycin and Zosyn cultures are negative afebrile. Plan is to continue the antibiotics for now. Surgical consult was done at this time there is no need for debridement as per the Dr MONTAGUE. 07/13/2018-patient was admitted with a stage I rectal sacral decubitus surgical consult was done the recommendation is no need for debridement antibiotics are continued patient is afebrile with changing the body patient every 2 hours blood cultures are negative so far. 07/14/2018-patient has a stage I sacral decubitus, requested every 2 of the body position change. Dressing is applied on daily basis to prevent worsening of the decubitus. Surgical consult was done no surgery was recommended presently on IV antibiotic therapy patient is afebrile. Plan is to continue the present management. (3) Type 2 diabetes mellitus Qualifiers: Diabetes mellitus grubber insulin use: without grubber use Diabetes mellitus complication status: without complication Qualified Code(s): E11.9 - Type 2 diabetes mellitus without complications Is this a current diagnosis for this admission?: No Plan: 07/10/2018-patient history of type 2 diabetes mellitus to start him on insulin sliding scale before meals and at bedtime to check hemoglobin A1c in a.m. 07/11/2018-patient has history of type 2 diabetes mellitus on glimepiride at home he is also receiving metformin along with Januvia presently on insulin sliding scale latest blood sugar is 265. Plan is to check the hemoglobin A1c. If necessary we are going to start a small dose of Lantus during the hospital stay. 07/12/2018-patient has history of type 2 diabetes mellitus hemoglobin A1c came back 11.5 today latest blood sugar is 162 and he is on glimepiride and metformin at home dose medications are on hold presently on insulin sliding scale. Continue to check his blood sugars before meals and at bedtime. 07/13/2018-this elderly male with history of type 2 diabetes mellitus with blood sugar of 240 this morning. Hemoglobin A1c is 11.5. He is taking glimepiride and metformin at home those are on hold. Presently on insulin sliding scale and he is on Lantus 10 units twice daily. Plan is to increase the Lantus to 15 twice a day. 07/14/2018-patient's latest blood sugar is 190 presently on Lantus 15 units twice a day and also insulin sliding scale. (4) Fall Is this a current diagnosis for this admission?: Yes Plan: 07/10/2018 1 patient came in with history of fall CK is 38 plan to do the CT head without contrast aspiration fall seizure precautions are requested PT consult was requested. 07/11/2018-she came in with history of fall to do the CT head without contrast today. Focal neurological deficits on examination. No obvious signs of trauma. 07/12/2018-patient admitted with history of fall. No focal neurological deficits. No bruises no obvious injuries. Patient status is stable. 07/13/2018-family is requesting for rehab placement physical therapy is on the case. (5) Atrial fibrillation Is this a current diagnosis for this admission?: No Plan: 07/10/2018-history of atrial fibrillation family is not sure whether he is on anticoagulation or not presently heart rate is controlled still in A. fib asymptomatic probably fall may be contributing patient of the A. fib. 07/11/2018-patient has history of atrial fibrillation on Eliquis. 07/12/2018-patient has history of fibrillation on Eliquis at home which was continued during the hospital stay. 07/13/2018-patient has history of atrial fibrillation on apixaban heart rate is around 110. Plan is to review his medications and adjust the doses. 07/14/2018-patient has history of chronic atrial fibrillation rate controlled h eart rate is 92. Plan is to continue with apixaban. - Time Time Spent with patient: 25-34 minutes Medications reviewed and adjusted accordingly: Yes Anticipated discharge: SNF
[2018-07-14 09:15] LABS: ALANINE AMINOTRANSFERASE 35 U/L (21-72); ALBUMIN 2.8 g/dL (3.5-5.0); ALKALINE PHOSPHATASE 52 U/L (38-126); ANION GAP 8 (5-19); ASPARTATE AMINO TRANSFERASE 28 U/L (17-59); BILIRUBIN,DIRECT 0.3 mg/dL (0.0-0.4); BILIRUBIN,TOTAL 0.9 mg/dL (0.2-1.3); BLOOD UREA NITROGEN 12 mg/dL (7-20); CALCIUM 8.8 mg/dL (8.4-10.2); CARBON DIOXIDE 28 mmol/L (22-30); CHLORIDE 106 mmol/L (98-107); GLUCOSE 188 mg/dL (75-110); TOTAL PROTEIN 5.5 g/dL (6.3-8.2)
[2018-07-14 09:23] LABS: ABSOLUTE EOSINOPHILS # (AUTO) 0.1 10^3/uL (0.0-0.6); ABSOLUTE LYMPHOCYTES (AUTO) 1.2 10^3/uL (0.5-4.7); ABSOLUTE MONOCYTES (AUTO) 0.5 10^3/uL (0.1-1.4); ABSOLUTE NEUT (AUTO) 4.3 10^3/uL (1.7-8.2); BASOPHILS % (AUTO) 0.7 % (0-2); EOSINOPHILS % (AUTO) 2.3 % (0-6); HEMATOCRIT 34.6 % (37.9-51.0); HEMOGLOBIN 11.7 g/dL (13.5-17.0); LYMPHOCYTES % (AUTO) 19.1 % (13-45); MEAN CORPUSCULAR HEMOGLOBIN 30.8 pg (27.0-33.4); MEAN CORPUSCULAR VOLUME 91 fl (80-97); MONOCYTES % (AUTO) 8.4 % (3-13); PLATELET COUNT 224 10^3/uL (150-450); RED BLOOD COUNT 3.82 10^6/uL (4.35-5.55); SEGMENTED NEUTROPHILS % (AUTO) 69.5 % (42-78); TOTAL CELLS COUNTED % (AUTO) 100 %; WHITE BLOOD COUNT 6.2 10^3/uL (4.0-10.5)
[2018-07-14] MEDS: MODAFINIL 100 MG TABLET PO SCH (10:15)
[2018-07-14] MEDS: POTASSIUM CHLORIDE 10 MEQ CAPSULE.ER PO SCH ×2 (10:15→23:03)
[2018-07-14] MEDS: LORATADINE 10 MG TABLET PO SCH (10:15)
[2018-07-14] MEDS: ISOSORBIDE MONONITRATE 60 MG TAB.ER.24H PO SCH (10:16)
[2018-07-14] MEDS: INSULIN GLARGINE,HUM.REC.ANLOG 1,000 UNIT/10 ML VIAL SUBCUT SCH ×2 (10:16→23:45)
[2018-07-14] MEDS: METOPROLOL TARTRATE 100 MG TABLET PO SCH ×2 (10:16→23:34)
[2018-07-14] MEDS: MEMANTINE PO SCH (10:17)
[2018-07-14] MEDS: GABAPENTIN 300 MG CAPSULE PO SCH ×2 (10:17→23:34)
[2018-07-14] MEDS: EZETIMIBE 10 MG TABLET PO SCH (10:17)
[2018-07-14] MEDS: DONEPEZIL PO SCH (10:17)
[2018-07-14] MEDS: ENOXAPARIN SODIUM INJ 40 MG/0.4 ML DISP.SYRIN SUBCUT SCH (10:28)
[2018-07-14] MEDS: INSULIN LISPRO 100 UNIT/ML 3 ML VIAL SUBCUT SCH ×4 (10:29→23:34)
[2018-07-14] MEDS: DOCUSATE SODIUM 100 MG CAPSULE PO SCH ×2 (10:29→18:23)
[2018-07-14] MEDS: VANCOMYCIN HCL 1,000 MG in DEXTROSE 5%-WATER 250 ML IV SCH ×2 (11:55→23:03)
[2018-07-14] MEDS: SIMVASTATIN 40 MG TABLET PO SCH (16:39)
[2018-07-14] MEDS ORDERED: LORAZEPAM INJ 2 MG/1 ML VIAL ONE (17:52)
[2018-07-14] MEDS ORDERED: MORPHINE SULFATE 10 MG/ML INJ ONE (17:52)
[2018-07-14] MEDS ORDERED: LORAZEPAM INJ 2 MG/1 ML VIAL IM ONE (18:00)
[2018-07-14] MEDS ORDERED: MORPHINE SULFATE 10 MG/ML INJ IM ONE (18:00)
[2018-07-15] MEDS: PIPERACILLIN SODIUM/TAZOBACTAM 3.375 GM in NORMAL SALINE 100 ML IV SCH (03:46)
[2018-07-15] MEDS: PANTOPRAZOLE SODIUM 40 MG TABLET.DR PO SCH ×2 (06:06→17:28)
[2018-07-15] MEDS ORDERED: DILTIAZEM HCL INJ 25 MG/5 ML VIAL IV PRN (07:43)
[2018-07-15] MEDS ORDERED: DILTIAZEM HCL INJ 25 MG/5 ML VIAL IV ONE (08:00)
[2018-07-15] MEDS: INSULIN LISPRO 100 UNIT/ML 3 ML VIAL SUBCUT SCH ×4 (08:11→22:58)
[2018-07-15] MEDS ORDERED: LORAZEPAM INJ 2 MG/1 ML VIAL IV PRN (08:49)
[2018-07-15] MEDS: METOPROLOL TARTRATE 100 MG TABLET PO SCH ×2 (09:07→22:58)
[2018-07-15] MEDS: LORATADINE 10 MG TABLET PO SCH (09:14)
[2018-07-15] MEDS: POTASSIUM CHLORIDE 10 MEQ CAPSULE.ER PO SCH ×2 (09:14→22:58)
[2018-07-15] MEDS: DOCUSATE SODIUM 100 MG CAPSULE PO SCH ×3 (09:14→17:28)
[2018-07-15] MEDS: ENOXAPARIN SODIUM INJ 40 MG/0.4 ML DISP.SYRIN SUBCUT SCH ×2 (09:14→09:35)
[2018-07-15] MEDS: ISOSORBIDE MONONITRATE 60 MG TAB.ER.24H PO SCH (09:14)
[2018-07-15] MEDS: MODAFINIL 100 MG TABLET PO SCH (09:14)
[2018-07-15] MEDS: EZETIMIBE 10 MG TABLET PO SCH (09:16)
[2018-07-15] MEDS: MEMANTINE PO SCH (09:17)
[2018-07-15] MEDS: DONEPEZIL PO SCH (09:17)
[2018-07-15] MEDS: GABAPENTIN 300 MG CAPSULE PO SCH ×2 (09:21→22:59)
[2018-07-15] MEDS: INSULIN GLARGINE,HUM.REC.ANLOG 1,000 UNIT/10 ML VIAL SUBCUT SCH ×2 (09:22→22:59)
--- NOTE | 2018-07-15 09:48 | PDOC PROGRESS REPORT ---
Subjective Progress Note for:: 07/15/18 Subjective:: 87 year old male with history of dementia, atrial fibrillation, history of [place] with 2 bypasses, hypertension, diabetes mellitus brought to the emergency room by the family members after a fall. Patient lives independently but close to his son's house they usually watch him to the monitors and they do not know how long the patient is on the floor brought to the emergency room the work-up indicates patient might have WILY and also has a infected decubitus wound on the on the left buttock hypotensive 1.5 L of IV fluids are given in the emergency room CK was 38 systolic blood pressure by the EMS and the initial in the ER is 70 blood pressure was improved to 112/74 medical consult was called for admission for possible cellulitis of the left buttock also. Went to evaluate the patient's son was at bedside able to provide little bit of information on examination found to have infected left buttock decubitus ulceration. Patient blood pressure is 03/03/1968. Plan to admit him the hospital for IV hydration and for IV antibiotic therapy and physical therapy. 07/11/[id number]-vays-old male with history of atrial fibrillation on apixaban, dementia, coronary artery disease with bypass, sacral decubitus brought in by the family members with history of questionable fall found to be hypotensive. On examination in the emergency room looks like decubitus ulcer is infected start an IV antibiotic therapy cultures are requested I spoke to Dr. Montague this morning, he agreed to see the patient. Patient is complaining of mild headache this morning and if the time the change the dressing on the sacral wound is saying he has a lot of pain started on Percocet 1 tablet every 4 as needed for pain. 07/12/[id number]-sffj-old male admitted with questionable history of fall and he has history of atrial fibrillation on apixaban, dementia coronary artery disease with bypass sacral decubitus. He was found to be hypotensive in the emergency room. Latest blood pressure is 109/77 with a heart rate of 101. Physical therapy is working with the pt. Patient may need rehab placement. no Acute events in the last 24 hours. Cultures are negative. 07/13/[id number]-ownv-old male with a sacral decubitus getting antibiotic therapy also admitted with history of fall, with history of atrial fibrillation on apixaban, dementia, coronary artery disease with bypass doing well waiting for the placement. His CODE STATUS is DNR/DNI. No acute events in the last 24 hours. Patient is alert oriented communicating well complaining of 4 that is not good quality. 07/14/[id number]-pvwq-old male admitted with history of fall and the work-up was negative for fractures and alert awake communicating okay. He has a stage I sacral decubitus looks like infected and surgical consult was done presently on IV vancomycin and Zosyn cultures are negative plan is to continue the antibiotics at least for 1 more day and discontinue. The family agreed for placement. Patient status is DNR/DNI. 07/15/[id number]-fqvx-old male admitted with history of fall waiting for placement. Also have questionable infected sacral decubitus on antibiotic therapy afebrile cultures are negative antibiotics are discontinued from yesterday. Since yesterday patient is saying he is not feeling well complains of headaches given IV morphine he was agitated yesterday given Ativan to calm him down this morning prior to 7 AM he went into A. fib with RVR given Cardizem 10 mg IV heart rate came down to 150s and requested the nurse to give metoprolol 150 mg morning dose now at around 9 AM. Patient CODE STATUS is DNR/DNI. Reason For Visit: INFECTED DECUBITUS Physical Exam Vital Signs: Temp Pulse Resp BP Pulse Ox 97.7 F 147 H 20 132/79 H 94 07/15/18 07:33 07/15/18 07:33 07/15/18 07:33 07/15/18 07:33 07/15/18 07:33 Intake & Output 07/14/18 07/15/18 07/16/18 06:59 06:59 06:59 Intake Total 2720 1230 Output Total 500 Balance 2720 730 Weight 81.4 kg 81.4 kg General appearance: PRESENT: cooperative, mild distress Head exam: PRESENT: atraumatic Eye exam: PRESENT: PERRLA Mouth exam: PRESENT: moist, tongue midline Teeth exam: PRESENT: edentulous Neck exam: ABSENT: carotid bruit, JVD, lymphadenopathy, thyromegaly Respiratory exam: PRESENT: decreased breath sounds Cardiovascular exam: PRESENT: irregular rhythm, systolic murmur, tachycardia GI/Abdominal exam: PRESENT: normal bowel sounds, soft. ABSENT: distended, guarding, mass, organolmegaly, rebound, tenderness Rectal exam: PRESENT: deferred Neurological exam: PRESENT: alert, awake, oriented to person, oriented to place, oriented to time, oriented to situation, CN II-XII grossly intact. ABSENT: motor sensory deficit Psychiatric exam: PRESENT: appropriate affect, normal mood. ABSENT: homicidal ideation, suicidal ideation Results Laboratory Results: 07/14/18 08:25 07/14/18 08:07 07/10/18 07/10/18 07/10/18 16:56 16:56 19:43 Creatine Kinase 38 L 34 L CK-MB (CK-2) Troponin I 0.016 NT-Pro-B Natriuret Pep 07/10/18 07/11/18 07/11/18 19:43 02:19 02:19 Creatine Kinase 27 L CK-MB (CK-2) 0.91 0.83 Troponin I 0.016 0.019 NT-Pro-B Natriuret Pep 07/11/18 07/11/18 08:27 08:27 Creatine Kinase 26 L CK-MB (CK-2) 0.80 Troponin I 0.020 NT-Pro-B Natriuret Pep 3430 H Impressions: Ribs w/Chest X-Ray 07/10/18 15:29 IMPRESSION: 1. No pneumothorax. No displaced rib fracture. 2. 2 curvilinear metallic densities overlie right lateral chest, possibly surg ical clips although foreign body is not excluded. Recommend correlation with patient symptoms/ physical exam. Assessment and Plan - Diagnosis (1) Hypotension Qualifiers: Hypotension type: unspecified hypotension type Qualified Code(s): I95.9 - Hypotension, unspecified Is this a current diagnosis for this admission?: Yes Plan: 07/10/2018-patient going to be admitted for hypotension at the time of arrival systolic blood pressure is 70 after giving 1-1/2 L fluids blood pressure is 120/70. Associated with history of fall. Potential most likely secondary to medications he is on 3 antihypertensive at home. To hold home blood pressure medications at this point continue IV fluids normal saline 75 cc/h GI prophylaxis DVT prophylaxis initiated aspiration fall seizure precautions are initiated blood cultures wound cultures urine cultures are requested to start on Zosyn and IV vancomycin. Physical therapy consult was requested. 07/11/2018-patient came in with hypotension SBP 70 in the emergency room. With IV fluids and after holding his home medications blood pressure is improved to 118/60. To discontinue IV fluids from today. Hypotension may be secondary to poor oral intake, infected sacral decubitus. 07/12/[id number]-mcxu-old male admitted for hypotension at the time of admission systolic blood pressure is 70. With IV fluids blood pressure is improved today it is 109/77. Hypotension most likely secondary to poor oral intake. 07/13/2018-blood pressure today is 117/69 stable. Hypotension is resolved. 07/14/2018-patient blood pressure today is 118/66 stable. Plan is to continue the present management hypotension is resolved. 07/15/2018-patient blood pressure is 134/90 this morning. Stable. Presently on metoprolol 150 mg p.o. twice a day. Given 10 mg of IV Cardizem push this morning for the atrial fibrillation. (2) Cellulitis Qualifiers: Site of cellulitis: extremity Site of cellulitis of extremity: lower extremity Laterality: left Qualified Code(s): L03.116 - Cellulitis of left lower limb Is this a current diagnosis for this admission?: No Plan: 07/11/2018-patient was admitted with infected probably stage II sacral decubitus surgical consult was requested started on IV antibiotic therapy and requested to change the body position every 2 hours. Plan is to continue to follow the patient regular basis. 07/12/2018-patient came in with stage I sacral decubitus erythematous no and irritation and getting treatment with with vancomycin and Zosyn cultures are negative afebrile. Plan is to continue the antibiotics for now. Surgical consult was done at this time there is no need for debridement as per the Dr MONTAGUE. 07/13/2018-patient was admitted with a stage I rectal sacral decubitus surgical consult was done the recommendation is no need for debridement antibiotics are continued patient is afebrile with changing the body patient every 2 hours blood cultures are negative so far. 07/14/2018-patient has a stage I sacral decubitus, requested every 2 of the body position change. Dressing is applied on daily basis to prevent worsening of the decubitus. Surgical consult was done no surgery was recommended presently on IV antibiotic therapy patient is afebrile. Plan is to continue the present management. 07/15/2018-patient has stage I sacral decubitus treated with antibiotic therapy cultures are negative presently not on antibiotics. Continue to closely monitor the sacral wound. Dressings are applied and requested the nurses to use the body patient every 2 hours. (3) Type 2 diabetes mellitus Qualifiers: Diabetes mellitus skilled nursing insulin use: without skilled nursing use Diabetes mellitus complication status: without complication Qualified Code(s): E11.9 - Type 2 diabetes mellitus without complications Is this a current diagnosis for this admission?: No Plan: 07/10/2018-patient history of type 2 diabetes mellitus to start him on insulin sliding scale before meals and at bedtime to check hemoglobin A1c in a.m. 07/11/2018-patient has history of type 2 diabetes mellitus on glimepiride at home he is also receiving metformin along with Januvia presently on insulin sliding scale latest blood sugar is 265. Plan is to check the hemoglobin A1c. If necessary we are going to start a small dose of Lantus during the hospital stay. 07/12/2018-patient has history of type 2 diabetes mellitus hemoglobin A1c came back 11.5 today latest blood sugar is 162 and he is on glimepiride and metformin at home dose medications are on hold presently on insulin sliding scale. Continue to check his blood sugars before meals and at bedtime. 07/13/2018-this elderly male with history of type 2 diabetes mellitus with blood sugar of 240 this morning. Hemoglobin A1c is 11.5. He is taking glimepiride and metformin at home those are on hold. Presently on insulin sliding scale and he is on Lantus 10 units twice daily. Plan is to increase the Lantus to 15 twic e a day. 07/14/2018-patient's latest blood sugar is 190 presently on Lantus 15 units twice a day and also insulin sliding scale. 07/15/2018-patient's latest blood sugar is 74. Presently on Lantus 15 units twice a day and also on insulin sliding scale before meals and at bedtime. Plan is to continue the present management. (4) Fall Is this a current diagnosis for this admission?: Yes Plan: 07/10/2018 1 patient came in with history of fall CK is 38 plan to do the CT head without contrast aspiration fall seizure precautions are requested PT consult was requested. 07/11/2018-she came in with history of fall to do the CT head without contrast today. Focal neurological deficits on examination. No obvious signs of trauma. 07/12/2018-patient admitted with history of fall. No focal neurological deficits. No bruises no obvious injuries. Patient status is stable. 07/13/2018-family is requesting for rehab placement physical therapy is on the case. 04/2018-patient is waiting for placement. (5) Atrial fibrillation Is this a current diagnosis for this admission?: No Plan: 07/10/2018-history of atrial fibrillation family is not sure whether he is on anticoagulation or not presently heart rate is controlled still in A. fib asymptomatic probably fall may be contributing patient of the A. fib. 07/11/2018-patient has history of atrial fibrillation on Eliquis. 07/12/2018-patient has history of fibrillation on Eliquis at home which was continued during the hospital stay. 07/13/2018-patient has history of atrial fibrillation on apixaban heart rate is around 110. Plan is to review his medications and adjust the doses. 07/14/2018-patient has history of chronic atrial fibrillation rate controlled heart rate is 92. Plan is to continue with apixaban. 04/2018-patient has history of chronic atrial fibrillation went into RVR this morning, heart rate went up all the way up to 180. Given Cardizem 10 mg IV push heart rate came down to 130s and fluctuating between 130-150 requested the nurse to give her morning dose of metoprolol which is due at 10:00 stat - Time Time Spent with patient: 25-34 minutes Medications reviewed and adjusted accordingly: Yes Anticipated discharge: SNF
[2018-07-15] MEDS: SIMVASTATIN 40 MG TABLET PO SCH (17:28)
[2018-07-16] MEDS: PANTOPRAZOLE SODIUM 40 MG TABLET.DR PO SCH ×2 (05:40→16:32)
[2018-07-16] MEDS: INSULIN LISPRO 100 UNIT/ML 3 ML VIAL SUBCUT SCH ×4 (08:42→21:56)
[2018-07-16] MEDS ORDERED: POTASSIUM CHLORIDE 10 MEQ CAPSULE.ER PO ONE (09:00)
[2018-07-16] MEDS: GABAPENTIN 300 MG CAPSULE PO SCH ×2 (09:09→21:58)
[2018-07-16] MEDS: DOCUSATE SODIUM 100 MG CAPSULE PO SCH ×2 (09:09→19:45)
[2018-07-16] MEDS: LORATADINE 10 MG TABLET PO SCH (09:09)
[2018-07-16] MEDS: MODAFINIL 100 MG TABLET PO SCH (09:09)
[2018-07-16] MEDS: ISOSORBIDE MONONITRATE 60 MG TAB.ER.24H PO SCH (09:09)
[2018-07-16] MEDS: POTASSIUM CHLORIDE 10 MEQ CAPSULE.ER PO SCH ×2 (09:11→21:57)
[2018-07-16] MEDS: METOPROLOL TARTRATE 100 MG TABLET PO SCH ×2 (09:12→21:58)
[2018-07-16] MEDS: INSULIN GLARGINE,HUM.REC.ANLOG 1,000 UNIT/10 ML VIAL SUBCUT SCH ×2 (09:14→21:57)
[2018-07-16] MEDS: EZETIMIBE 10 MG TABLET PO SCH (09:14)
[2018-07-16] MEDS: MEMANTINE PO SCH (09:16)
[2018-07-16] MEDS: DONEPEZIL PO SCH (09:16)
[2018-07-16] MEDS: ENOXAPARIN SODIUM INJ 40 MG/0.4 ML DISP.SYRIN SUBCUT SCH (09:26)
--- NOTE | 2018-07-16 10:06 | PDOC PROGRESS REPORT ---
Subjective Progress Note for:: 07/16/18 Subjective:: 87 year old male with history of dementia, atrial fibrillation, history of ME with 2 bypasses, hypertension, diabetes mellitus brought to the emergency room by the family members after a fall. Patient lives independently but close to his son's house they usually watch him to the monitors and they do not know how long the patient is on the floor brought to the emergency room the work-up indicates patient might have WILY and also has a infected decubitus wound on the on the left buttock hypotensive 1.5 L of IV fluids are given in the emergency room CK was 38 systolic blood pressure by the EMS and the initial in the ER is 70 blood pressure was improved to 112/74 medical consult was called for admission for possible cellulitis of the left buttock also. Went to evaluate the patient's son was at bedside able to provide little bit of information on examination found to have infected left buttock decubitus ulceration. Patient blood pressure is 03/03/1968. Plan to admit him the hospital for IV hydration and for IV antibiotic therapy and physical therapy. 07/11/[id number]-hltg-old male with history of atrial fibrillation on apixaban, dementia, coronary artery disease with bypass, sacral decubitus brought in by the family members with history of questionable fall found to be hypotensive. On examination in the emergency room looks like decubitus ulcer is infected start an IV antibiotic therapy cultures are requested I spoke to Dr. Montague this morning, he agreed to see the patient. Patient is complaining of mild headache this morning and if the time the change the dressing on the sacral wound is saying he has a lot of pain started on Percocet 1 tablet every 4 as needed for pain. 07/12/[id number]-gqhe-old male admitted with questionable history of fall and he has history of atrial fibrillation on apixaban, dementia coronary artery disease with bypass sacral decubitus. He was found to be hypotensive in the emergency room. Latest blood pressure is 109/77 with a heart rate of 101. Physical therapy is working with the pt. Patient may need rehab placement. no Acute events in the last 24 hours. Cultures are negative. 07/13/[id number]-hvga-old male with a sacral decubitus getting antibiotic therapy also admitted with history of fall, with history of atrial fibrillation on apixaban, dementia, coronary artery disease with bypass doing well waiting for the placement. His CODE STATUS is DNR/DNI. No acute events in the last 24 hours. Patient is alert oriented communicating well complaining of 4 that is not good quality. 07/14/[id number]-txfc-old male admitted with history of fall and the work-up was negative for fractures and alert awake communicating okay. He has a stage I sacral decubitus looks like infected and surgical consult was done presently on IV vancomycin and Zosyn cultures are negative plan is to continue the antibiotics at least for 1 more day and discontinue. The family agreed for placement. Patient status is DNR/DNI. 07/15/[id number]-yglj-old male admitted with history of fall waiting for placement. Also have questionable infected sacral decubitus on antibiotic therapy afebrile cultures are negative antibiotics are discontinued from yesterday. Since yesterday patient is saying he is not feeling well complains of headaches given IV morphine he was agitated yesterday given Ativan to calm him down this morning prior to 7 AM he went into A. fib with RVR given Cardizem 10 mg IV heart rate came down to 150s and requested the nurse to give metoprolol 150 mg morning dose now at around 9 AM. Patient CODE STATUS is DNR/DNI. 07/16/[id number]-wnvl-old male with history of fall, atrial fibrillation on Eliquis at home, advanced dementia, hypertension, pressure sores, coronary artery disease waiting for placement. Yesterday his heart rate was up to 130s 150s. Given her diltiazem 1 dose heart rate was relatively controlled this morning is still in A. fib heart rate is 109. Patient is off the monitor because he is DNR/DNI. Comfortably in the bed reading the newspaper he has difficulty in hearing but see states he is doing fine. Reason For Visit: CELLULITIS,HYPOTENSION Physical Exam Vital Signs: Temp Pulse Resp BP Pulse Ox 97.7 F 106 H 16 131/86 H 98 07/16/18 07:32 07/16/18 07:32 07/16/18 07:32 07/16/18 07:32 07/16/18 07:32 Intake & Output 07/15/18 07/16/18 07/17/18 06:59 06:59 06:59 Intake Total 1230 960 Output Total 500 200 Balance 730 760 Weight 81.4 kg 85.9 kg General appearance: PRESENT: no acute distress Head exam: PRESENT: atraumatic Eye exam: PRESENT: PERRLA Mouth exam: PRESENT: moist, tongue midline Teeth exam: PRESENT: poor dentation Neck exam: ABSENT: carotid bruit, JVD, lymphadenopathy, thyromegaly Respiratory exam: PRESENT: decreased breath sounds Cardiovascular exam: PRESENT: tachycardia GI/Abdominal exam: PRESENT: normal bowel sounds, soft. ABSENT: distended, guarding, mass, organolmegaly, rebound, tenderness Rectal exam: PRESENT: deferred Extremities exam: PRESENT: full ROM. ABSENT: calf tenderness, clubbing, pedal edema Neurological exam: PRESENT: alert, awake, oriented to person, oriented to place, oriented to time, oriented to situation, CN II-XII grossly intact. ABSENT: motor sensory deficit Psychiatric exam: PRESENT: appropriate affect, normal mood. ABSENT: homicidal ideation, suicidal ideation Results Laboratory Results: 07/14/18 08:25 07/14/18 08:07 07/10/18 19:43 Blood Blood Culture - Final NO GROWTH IN 5 DAYS 07/10/18 16:56 Blood Blood Culture - Final NO GROWTH IN 5 DAYS 07/10/18 07/10/18 07/10/18 16:56 16:56 19:43 Creatine Kinase 38 L 34 L CK-MB (CK-2) Troponin I 0.016 NT-Pro-B Natriuret Pep 07/10/18 07/11/18 07/11/18 19:43 02:19 02:19 Creatine Kinase 27 L CK-MB (CK-2) 0.91 0.83 Troponin I 0.016 0.019 NT-Pro-B Natriuret Pep 07/11/18 07/11/18 08:27 08:27 Creatine Kinase 26 L CK-MB (CK-2) 0.80 Troponin I 0.020 NT-Pro-B Natriuret Pep 3430 H Impressions: Ribs w/Chest X-Ray 07/10/18 15:29 IMPRESSION: 1. No pneumothorax. No displaced rib fracture. 2. 2 curvilinear metallic densities overlie right lateral chest, possibly yvonne gical clips although foreign body is not excluded. Recommend correlation with patient symptoms/ physical exam. Assessment and Plan - Diagnosis (1) Hypotension Qualifiers: Hypotension type: unspecified hypotension type Qualified Code(s): I95.9 - Hypotension, unspecified Is this a current diagnosis for this admission?: Yes Plan: 07/10/2018-patient going to be admitted for hypotension at the time of arrival systolic blood pressure is 70 after giving 1-1/2 L fluids blood pressure is 120/70. Associated with history of fall. Potential most likely secondary to medications he is on 3 antihypertensive at home. To hold home blood pressure medications at this point continue IV fluids normal saline 75 cc/h GI prophylaxis DVT prophylaxis initiated aspiration fall seizure precautions are initiated blood cultures wound cultures urine cultures are requested to start on Zosyn and IV vancomycin. Physical therapy consult was requested. 07/11/2018-patient came in with hypotension SBP 70 in the emergency room. With IV fluids and after holding his home medications blood pressure is improved to 118/60. To discontinue IV fluids from today. Hypotension may be secondary to poor oral intake, infected sacral decubitus. 07/12/[id number]-paaw-old male admitted for hypotension at the time of admission systolic blood pressure is 70. With IV fluids blood pressure is improved today it is 109/77. Hypotension most likely secondary to poor oral intake. 07/13/2018-blood pressure today is 117/69 stable. Hypotension is resolved. 07/14/2018-patient blood pressure today is 118/66 stable. Plan is to continue the present management hypotension is resolved. 07/15/2018-patient blood pressure is 134/90 this morning. Stable. Presently on m etoprolol 150 mg p.o. twice a day. Given 10 mg of IV Cardizem push this morning for the atrial fibrillation. 07/16/2018-patient blood pressure today is 131/86. Presently on metoprolol 150 mg p.o. twice daily yesterday received 10 mg of IV Cardizem push heart rate is improved. Patient still in the A. fib. (2) Cellulitis Qualifiers: Site of cellulitis: extremity Site of cellulitis of extremity: lower extremity Laterality: left Qualified Code(s): L03.116 - Cellulitis of left lower limb Is this a current diagnosis for this admission?: No Plan: 07/11/2018-patient was admitted with infected probably stage II sacral decubitus surgical consult was requested started on IV antibiotic therapy and requested to change the body position every 2 hours. Plan is to continue to follow the patient regular basis. 07/12/2018-patient came in with stage I sacral decubitus erythematous no and irritation and getting treatment with with vancomycin and Zosyn cultures are negative afebrile. Plan is to continue the antibiotics for now. Surgical consult was done at this time there is no need for debridement as per the Dr MONTAGUE. 07/13/2018-patient was admitted with a stage I rectal sacral decubitus surgical consult was done the recommendation is no need for debridement antibiotics are continued patient is afebrile with changing the body patient every 2 hours blood cultures are negative so far. 07/14/2018-patient has a stage I sacral decubitus, requested every 2 of the body position change. Dressing is applied on daily basis to prevent worsening of the decubitus. Surgical consult was done no surgery was recommended presently on IV antibiotic therapy patient is afebrile. Plan is to continue the present management. 07/15/2018-patient has stage I sacral decubitus treated with antibiotic therapy cultures are negative presently not on antibiotics. Continue to closely monitor the sacral wound. Dressings are applied and requested the nurses to use the body patient every 2 hours. 05/2018-patient has stage I decubitus ulcer with erythema surgical consult was done the assumption is no need for debridement and antibiotics are discontinued. Requested for body position change every 2 hours. (3) Type 2 diabetes mellitus Qualifiers: Diabetes mellitus [employer] insulin use: without usp use Diabetes mellitus complication status: without complication Qualified Code(s): E11.9 - Type 2 diabetes mellitus without complications Is this a current diagnosis for this admission?: No Plan: 07/10/2018-patient history of type 2 diabetes mellitus to start him on insulin sliding scale before meals and at bedtime to check hemoglobin A1c in a.m. 07/11/2018-patient has history of type 2 diabetes mellitus on glimepiride at home he is also receiving metformin along with Januvia presently on insulin sliding scale latest blood sugar is 265. Plan is to check the hemoglobin A1c. If necessary we are going to start a small dose of Lantus during the hospital stay. 07/12/2018-patient has history of type 2 diabetes mellitus hemoglobin A1c came back 11.5 today latest blood sugar is 162 and he is on glimepiride and metformin at home dose medications are on hold presently on insulin sliding scale. Continue to check his blood sugars before meals and at bedtime. 07/13/2018-this elderly male with history of type 2 diabetes mellitus with blood sugar of 240 this morning. Hemoglobin A1c is 11.5. He is taking glimepiride and metformin at home those are on hold. Presently on insulin sliding scale and he is on Lantus 10 units twice daily. Plan is to increase the Lantus to 15 twice a day. 07/14/2018-patient's latest blood sugar is 190 presently on Lantus 15 units twice a day and also insulin sliding scale. 07/15/2018-patient's latest blood sugar is 74. Presently on Lantus 15 units twice a day and also on insulin sliding scale before meals and at bedtime. Plan is to continue the present management. 07/16/2018-latest blood sugar is 111. Presently on Lantus 15 units twice a day and insulin sliding scale as needed. Hemoglobin A1c is 11.5. Dietary consult was done during the hospital stay. (4) Fall Is this a current diagnosis for this admission?: Yes Plan: 07/10/2018 1 patient came in with history of fall CK is 38 plan to do the CT head without contrast aspiration fall seizure precautions are requested PT consult was requested. 07/11/2018-she came in with history of fall to do the CT head without contrast today. Focal neurological deficits on examination. No obvious signs of trauma. 07/12/2018-patient admitted with history of fall. No focal neurological deficits. No bruises no obvious injuries. Patient status is stable. 07/13/2018-family is requesting for rehab placement physical therapy is on the case. 07/15/2018-patient is waiting for placement. (5) Atrial fibrillation Is this a current diagnosis for this admission?: No Plan: 07/10/2018-history of atrial fibrillation family is not sure whether he is on ant icoagulation or not presently heart rate is controlled still in A. fib asymptomatic probably fall may be contributing patient of the A. fib. 07/11/2018-patient has history of atrial fibrillation on Eliquis. 07/12/2018-patient has history of fibrillation on Eliquis at home which was continued during the hospital stay. 07/13/2018-patient has history of atrial fibrillation on apixaban heart rate is a round 110. Plan is to review his medications and adjust the doses. 07/14/2018-patient has history of chronic atrial fibrillation rate controlled heart rate is 92. Plan is to continue with apixaban. 07/15/2018-patient has history of chronic atrial fibrillation went into RVR this morning, heart rate went up all the way up to 180. Given Cardizem 10 mg IV push heart rate came down to 130s and fluctuating between 130-150 requested the nurse to give her morning dose of metoprolol which is due at 10:00 stat 07/16/[id number]-rcde-old male with history of chronic atrial fibrillation on apixaban at home went into A. fib with RVR yesterday. He was given Cardizem 10 and continued metoprolol 150 mg p.o. every 12 hours. Today's heart rate is 109 patient is asymptomatic. Comfortably in the bed reading the newspaper. Is waiting for placement. - Time Time Spent with patient: 15-24 minutes Smoking Cessation Education: 3 to 10 minutes Medications reviewed and adjusted accordingly: Yes Anticipated discharge: Home
[2018-07-16] MEDS: SIMVASTATIN 40 MG TABLET PO SCH (19:44)
[2018-07-17] MEDS: PANTOPRAZOLE SODIUM 40 MG TABLET.DR PO SCH ×2 (06:34→17:26)
[2018-07-17 06:52] LABS: ABSOLUTE EOSINOPHILS # (AUTO) 0.3 10^3/uL (0.0-0.6); ABSOLUTE LYMPHOCYTES (AUTO) 2.2 10^3/uL (0.5-4.7); ABSOLUTE MONOCYTES (AUTO) 0.6 10^3/uL (0.1-1.4); BASOPHILS % (AUTO) 0.5 % (0-2); EOSINOPHILS % (AUTO) 4.2 % (0-6); HEMATOCRIT 33.2 % (37.9-51.0); HEMOGLOBIN 11.3 g/dL (13.5-17.0); LYMPHOCYTES % (AUTO) 26.9 % (13-45); MEAN CORPUSCULAR HEMOGLOBIN 30.9 pg (27.0-33.4); MEAN CORPUSCULAR VOLUME 91 fl (80-97); MONOCYTES % (AUTO) 7.4 % (3-13); PLATELET COUNT 255 10^3/uL (150-450); RED BLOOD COUNT 3.66 10^6/uL (4.35-5.55); RED CELL DISTRIBUTION WIDTH 15.3 % (11.5-14.0); TOTAL CELLS COUNTED % (AUTO) 100 %; WHITE BLOOD COUNT 8.2 10^3/uL (4.0-10.5)
[2018-07-17 07:18] LABS: ALANINE AMINOTRANSFERASE 44 U/L (21-72); ALBUMIN 2.7 g/dL (3.5-5.0); ALKALINE PHOSPHATASE 56 U/L (38-126); ANION GAP 9 (5-19); ASPARTATE AMINO TRANSFERASE 32 U/L (17-59); BILIRUBIN,DIRECT 0.3 mg/dL (0.0-0.4); BILIRUBIN,TOTAL 0.6 mg/dL (0.2-1.3); BLOOD UREA NITROGEN 13 mg/dL (7-20); CALCIUM 8.9 mg/dL (8.4-10.2); CARBON DIOXIDE 30 mmol/L (22-30); CHLORIDE 104 mmol/L (98-107); GLUCOSE 81 mg/dL (75-110); POTASSIUM 4.2 mmol/L (3.6-5.0); SODIUM 142.5 mmol/L (137-145); TOTAL PROTEIN 5.5 g/dL (6.3-8.2)
[2018-07-17] MEDS: INSULIN LISPRO 100 UNIT/ML 3 ML VIAL SUBCUT SCH ×5 (07:59→20:59)
[2018-07-17] MEDS: EZETIMIBE 10 MG TABLET PO SCH (10:59)
[2018-07-17] MEDS: POTASSIUM CHLORIDE 10 MEQ CAPSULE.ER PO SCH ×2 (10:59→21:53)
[2018-07-17] MEDS: DOCUSATE SODIUM 100 MG CAPSULE PO SCH ×2 (11:00→17:23)
[2018-07-17] MEDS: MODAFINIL 100 MG TABLET PO SCH (11:00)
[2018-07-17] MEDS: ISOSORBIDE MONONITRATE 60 MG TAB.ER.24H PO SCH (11:00)
[2018-07-17] MEDS: LORATADINE 10 MG TABLET PO SCH (11:00)
[2018-07-17] MEDS: INSULIN GLARGINE,HUM.REC.ANLOG 1,000 UNIT/10 ML VIAL SUBCUT SCH ×2 (11:00→21:54)
[2018-07-17] MEDS: GABAPENTIN 300 MG CAPSULE PO SCH ×2 (11:00→21:53)
[2018-07-17] MEDS: METOPROLOL TARTRATE 100 MG TABLET PO SCH ×2 (11:03→21:53)
[2018-07-17] MEDS: ENOXAPARIN SODIUM INJ 40 MG/0.4 ML DISP.SYRIN SUBCUT SCH (11:03)
[2018-07-17] MEDS: DONEPEZIL PO SCH (11:04)
[2018-07-17] MEDS: MEMANTINE PO SCH (11:04)
--- NOTE | 2018-07-17 13:36 | PDOC TRANSFER SUMMARY ---
General Admission Date/PCP: 07/10/18 18:21 Resuscitation Status: Do Not Resuscitate - Transfer Diagnosis (1) Hypotension Is this a current diagnosis for this admission?: Yes (2) Fall Is this a current diagnosis for this admission?: Yes (3) Decubitus ulcer of sacral region, stage 1 Is this a current diagnosis for this admission?: Yes (4) Cellulitis Is this a current diagnosis for this admission?: Yes (5) Type 2 diabetes mellitus Is this a current diagnosis for this admission?: No (6) CAD status post coronary bypass graft Is this a current diagnosis for this admission?: No (7) Recent diagnosis of temporal arteritis Is this a current diagnosis for this admission?: No (8) Atrial fibrillation Is this a current diagnosis for this admission?: No (9) Dementia Is this a current diagnosis for this admission?: No (10) Hyperlipidemia Is this a current diagnosis for this admission?: No - Transfer Medications Home Medications: Apixaban [Eliquis 2.5 mg Tablet] 2.5 mg PO Q12 07/10/18 Ezetimibe [Zetia 10 mg Tablet] 10 mg PO DAILY 07/10/18 Furosemide [Lasix 40 mg Tablet] 40 mg PO DAILY 07/10/18 Gabapentin [Neurontin 300 mg Capsule] 300 mg PO Q12 07/10/18 Glimepiride [Amaryl 4 mg Tablet] 2 mg PO Q12 07/10/18 Isosorbide Mononitrate [Imdur 60 mg Tablet.er] 60 mg PO DAILY 07/10/18 Loratadine [Claritin 10 mg Tablet] 10 mg PO DAILY 07/10/18 Modafinil [Provigil 100 mg Tablet] 100 mg PO QAM 07/10/18 Potassium Chloride [Klor-Con 10 Meq Capsule ER] 10 meq PO DAILY 07/10/18 Prednisone [Deltasone 10 mg Tablet] 20 mg PO DAILY 07/10/18 Simvastatin [Zocor 40 mg Tablet] 40 mg PO QPM 07/10/18 Sitagliptin Phos/Metformin HCl [Janumet 50-1,000 mg Tablet] 1 each PO BID 07/10/18 Transfer Medications: Current Medications Acetaminophen (Tylenol 325 Mg Tablet) 650 mg PO Q4HP PRN PRN Reason: FEVER >101 Stop: 08/09/18 18:38 Last Admin: 07/14/18 07:16 Dose: 650 mg Documented by: Dextrose (Dextrose Inj 50% Syringe (25 Gm/50 Ml)) 25 gm IV PRN PRN; Protocol PRN Reason: PER PROTOCOL Stop: 08/10/18 10:26 Dextrose (Dextrose Inj 50% Syringe (25 Gm/50 Ml)) 12.5 gm IV PRN PRN; Protocol PRN Reason: FOR BG 50-69 IN ALERT PATIENT Stop: 08/10/18 10:26 Diltiazem HCl (Cardizem Inj 25 Mg/5 Ml Vial) 10 mg IV Q6HP PRN PRN Reason: GIVE FOR HR > 130 Stop: 08/14/18 07:42 Docusate Sodium (Colace 100 Mg Capsule) 100 mg PO BID [facility] Stop: 08/10/18 09:59 Last Admin: 07/17/18 11:00 Dose: Not Given Documented by: Ezetimibe (Zetia 10 Mg Tablet) 10 mg PO DAILY [facility] Stop: 08/10/18 09:59 Last Admin: 07/17/18 10:59 Dose: 10 mg Documented by: Enoxaparin Sodium (Lovenox Inj 40 Mg/0.4 Ml Disp.Syrin) 40 mg SUBCUT DAILY [facility] Stop: 08/09/18 18:44 Last Admin: 07/17/18 11:03 Dose: 40 mg Documented by: Gabapentin (Neurontin 300 Mg Capsule) 300 mg PO Q12 [facility] Stop: 08/10/18 09:59 Last Admin: 07/17/18 11:00 Dose: 300 mg Documented by: Glucagon (Glucagen Inj 1 Mg Vial) 1 mg IM PRN PRN; Protocol PRN Reason: Evaluate for BG < 70 Stop: 08/10/18 10:26 Glucose (Glutose 40% Gel 15 Gm Tube) 15 gm PO PRN PRN; Protocol PRN Reason: FOR BG 50-69 IN ALERT PATIENT Stop: 08/10/18 10:26 Glucose (Glutose 40% Gel 15 Gm Tube) 30 gm PO PRN PRN; Protocol PRN Reason: FOR BG < 50 IN ALERT PATIENT Stop: 08/10/18 10:26 Insulin Glargine (Lantus Insulin 100 Unit/1 Ml 10 Ml) 15 unit SUBCUT Q12 [facility] Stop: 08/12/18 21:59 Last Admin: 07/17/18 11:00 Dose: 15 unit Documented by: Insulin Human Lispro (Humalog Insulin 100 Unit/1 Ml 3 Ml Vial) 0 - 12 unit SUBCUT [facility]; Protocol Stop: 08/10/18 10:59 Last Admin: 07/17/18 11:06 Dose: 4 unit Documented by: Isosorbide Mononitrate (Imdur 60 Mg Tablet.Er) 60 mg PO DAILY [facility] Stop: 08/10/18 09:59 Last Admin: 07/17/18 11:00 Dose: 60 mg Documented by: Loratadine (Claritin 10 Mg Tablet) 10 mg PO DAILY [facility] Stop: 08/10/18 09:59 Last Admin: 07/17/18 11:00 Dose: 10 mg Documented by: Lorazepam (Ativan Inj 2 Mg/1 Ml Vial) 1 mg IV Q8HP PRN PRN Reason: ANXIETY/AGITATION Stop: 07/22/18 08:48 Last Admin: 07/15/18 11:20 Dose: 1 mg Documented by: Metoprolol Tartrate (Lopressor 100 Mg Tablet) 150 mg PO Q12 [facility] Stop: 08/12/18 09:59 Last Admin: 07/17/18 11:03 Dose: 150 mg Documented by: Modafinil (Provigil 100 Mg Tablet) 100 mg PO QAM [facility] Stop: 07/18/18 09:29 Last Admin: 07/17/18 11:00 Dose: 100 mg Documented by: Ondansetron HCl (Zofran Inj/Pf 4 Mg/2 Ml Sdv) 4 mg IV Q6HP PRN PRN Reason: FOR NAUSEA/VOMITING Stop: 08/09/18 18:38 Oxycodone/Acetaminophen (Percocet 5-325 Mg Tablet) 1 tab PO Q4HP PRN PRN Reason: FOR PAIN SCALE 4-5 Stop: 07/18/18 09:56 Last Admin: 07/13/18 21:57 Dose: 1 tab Documented by: Pantoprazole Sodium (Protonix [address] Tablet) 40 mg PO BID@0600,1700 [facility] Stop: 08/10/18 05:59 Last Admin: 07/17/18 06:34 Dose: Not Given Documented by: Namzaric (Memantine/Donepezil) Er Caps Titration Pack 1 dose PO DAILY [facility] Stop: 08/10/18 11:59 Last Admin: 06/05/19 11:04 Dose: 1 cap Documented by: Potassium Chloride (Klor-Con 10 Meq Capsule Er) 20 meq PO Q12 [facility] Stop: 08/11/18 09:59 Last Admin: 07/17/18 10:59 Dose: 20 meq Documented by: Simvastatin (Zocor 40 Mg Tablet) 40 mg PO QPM [facility] Stop: 08/10/18 17:59 Last Admin: 07/16/18 19:44 Dose: 40 mg Documented by: Sodium Chloride (Saline Flush 2.5 Ml Monoject Prefil Syrin) 2.5 ml IV Q8 [facility] Stop: 08/09/18 21:59 Last Admin: 07/17/18 06:35 Dose: Not Given Documented by: - Allergies Allergies/Adverse Reactions: No Known Allergies Allergy (Verified 07/10/18 16:47) Hospital Course Hospital Course: Patient is a 87-year-old male with history of CAD, hypertension, atrial fibrillation that presents to the emergency department for chief complaint of low blood pressure, generalized weakness. Patient apparently had a fall around 4 AM in the morning this morning, where his legs gave out from underneath him and he struck the right side of his body into a door frame, and slid down, denies any head injury or neck injury. Per EMS the patient's blood pressure was in the 80s systolic, and per family it was 70/50. He was given 500 mL's of fluid by EMS, his blood sugar was 288. At this time the patient is complaining of pain in his right side, describes it as a 6 out of 10 aching pain. He recently has a new bedsore on his backside, and has had redness in the left leg. He is complaining of some pain in the left leg as well and is tender to touch. He is on blood pressure medication as well as Lasix for lower extremity edema. (1) Hypotension (2) Fall (3) Decubitus ulcer of sacral region, stage 1 (4) Cellulitis (5) Type 2 diabetes mellitus (6) CAD status post coronary bypass graft (7) Recent diagnosis of temporal arteritis (8) Atrial fibrillation (9) Dementia (10) Hyperlipidemia Physical Exam Vital Signs: Temp Pulse Resp BP Pulse Ox 97.4 F 108 H 18 134/89 H 98 07/17/18 11:16 07/17/18 11:16 07/17/18 11:16 07/17/18 11:16 07/17/18 11:16 Intake & Output 07/16/18 07/17/18 07/18/18 06:59 06:59 06:59 Intake Total 960 660 420 Output Total 200 50 470 Balance 760 610 -50 Weight 85.9 kg 85.5 kg Results Laboratory Results: 07/17/18 05:40 07/17/18 05:40 07/17/18 07/17/18 05:40 05:40 WBC 8.2 RBC 3.66 L Hgb 11.3 L Hct 33.2 L MCV 91 MCH 30.9 MCHC 34.0 RDW 15.3 H Plt Count 255 Seg Neutrophils % 61.0 Lymphocytes % 26.9 Monocytes % 7.4 Eosinophils % 4.2 Basophils % 0.5 Absolute Neutrophils 5.0 Absolute Lymphocytes 2.2 Absolute Monocytes 0.6 Absolute Eosinophils 0.3 Absolute Basophils 0.0 Sodium 142.5 Potassium 4.2 Chloride 104 Carbon Dioxide 30 Anion Gap 9 BUN 13 Creatinine 0.65 Est GFR ( Amer) > 60 Est GFR (Non-Af Amer) > 60 Glucose 81 Calcium 8.9 Magnesium 2.1 Total Bilirubin 0.6 AST 32 ALT 44 Alkaline Phosphatase 56 Total Protein 5.5 L Albumin 2.7 L 07/10/18 07/10/18 07/10/18 16:56 16:56 19:43 Creatine Kinase 38 L 34 L CK-MB (CK-2) Troponin I 0.016 NT-Pro-B Natriuret Pep 07/10/18 07/11/18 07/11/18 19:43 02:19 02:19 Creatine Kinase 27 L CK-MB (CK-2) 0.91 0.83 Troponin I 0.016 0.019 NT-Pro-B Natriuret Pep 07/11/18 07/11/18 08:27 08:27 Creatine Kinase 26 L CK-MB (CK-2) 0.80 Troponin I 0.020 NT-Pro-B Natriuret Pep 3430 H Impressions: Ribs w/Chest X-Ray 07/10/18 15:29 IMPRESSION: 1. No pneumothorax. No displaced rib fracture. 2. 2 curvilinear metallic densities overlie right lateral chest, possibly surgical clips although foreign body is not excluded. Recommend correlation with patient symptoms/ physical exam.
[2018-07-17] MEDS ORDERED: DEXTROSE 50%-WATER 25 GM/50 ML DISP.SYRIN IV PRN ×4 (13:54→13:55)
[2018-07-17] MEDS ORDERED: GLUCAGON,HUMAN RECOMB 1 MG INJ IM PRN ×2 (13:54→13:55)
[2018-07-17] MEDS ORDERED: DEXTROSE 40% GEL 15 GM TUBE PO PRN ×4 (13:54→13:55)
--- NOTE | 2018-07-17 13:58 | PDOC PROGRESS REPORT ---
Subjective Progress Note for:: 07/17/18 Subjective:: 87-year-old male past medical history of CAD, hypertension, A. fib, who presented to ED complaining of generalized weakness. Patient apparently had a fall around 4 AM in the morning this morning, where his legs gave out from underneath him and he struck the right side of his body into a door frame, and slid down, denies any head injury or neck injury. Per EMS the patient's blood pressure was in the 80s systolic, and per family it was 70/50. He was given 500 mL's of fluid by EMS, his blood sugar was 288. At this time the patient is complaining of pain in his right side, describes it as a 6 out of 10 aching pain. He recently has a new bedsore on his backside, and has had redness in the left leg. He is complaining of some pain in the left leg as well and is tender to touch. He is on blood pressure medication as well as Lasix for lower extremity edema. 07/17/2018. No acute events overnight. Patient complaining of left lower extremity chronic pain, very anxious to receive physical therapy and be able to walk again. Denies any fever, chills, nausea, vomiting, diarrhea, constipation or any urinary symptoms. Patient is being accepted at a rehab however his underlying medical conditions have not been optimized. Reason For Visit: CELLULITIS,HYPOTENSION Physical Exam Vital Signs: Temp Pulse Resp BP Pulse Ox 97.4 F 108 H 18 134/89 H 98 07/17/18 11:16 07/17/18 11:16 07/17/18 11:16 07/17/18 11:16 07/17/18 11:16 Intake & Output 07/16/18 07/17/18 07/18/18 06:59 06:59 06:59 Intake Total 960 660 420 Output Total 200 50 470 Balance 760 610 -50 Weight 85.9 kg 85.5 kg Results Laboratory Results: 07/17/18 05:40 07/17/18 05:40 07/17/18 07/17/18 05:40 05:40 WBC 8.2 RBC 3.66 L Hgb 11.3 L Hct 33.2 L MCV 91 MCH 30.9 MCHC 34.0 RDW 15.3 H Plt Count 255 Seg Neutrophils % 61.0 Lymphocytes % 26.9 Monocytes % 7.4 Eosinophils % 4.2 Basophils % 0.5 Absolute Neutrophils 5.0 Absolute Lymphocytes 2.2 Absolute Monocytes 0.6 Absolute Eosinophils 0.3 Absolute Basophils 0.0 Sodium 142.5 Potassium 4.2 Chloride 104 Carbon Dioxide 30 Anion Gap 9 BUN 13 Creatinine 0.65 Est GFR ( Amer) > 60 Est GFR (Non-Af Amer) > 60 Glucose 81 Calcium 8.9 Magnesium 2.1 Total Bilirubin 0.6 AST 32 ALT 44 Alkaline Phosphatase 56 Total Protein 5.5 L Albumin 2.7 L 07/10/18 07/10/18 07/10/18 16:56 16:56 19:43 Creatine Kinase 38 L 34 L CK-MB (CK-2) Troponin I 0.016 NT-Pro-B Natriuret Pep 07/10/18 07/11/18 07/11/18 19:43 02:19 02:19 Creatine Kinase 27 L CK-MB (CK-2) 0.91 0.83 Troponin I 0.016 0.019 NT-Pro-B Natriuret Pep 07/11/18 07/11/18 08:27 08:27 Creatine Kinase 26 L CK-MB (CK-2) 0.80 Troponin I 0.020 NT-Pro-B Natriuret Pep 3430 H Impressions: Ribs w/Chest X-Ray 07/10/18 15:29 IMPRESSION: 1. No pneumothorax. No displaced rib fracture. 2. 2 curvilinear metallic densities overlie right lateral chest, possibly surgical clips although foreign body is not excluded. Recommend correlation with patient symptoms/ physical exam. Assessment and Plan - Diagnosis (1) Atrial fibrillation Is this a current diagnosis for this admission?: No Plan: A. fib RVR. On chronic anticoagulation. Continue beta-john and adjust meds as needed. Has history of taking being anticoagulated on apixaban which has been held on this admission but on DVT prophylaxis. We will consult about about possible discontinuation of anticoagulation as patient was admitted due to fall and also has history of physical deconditioning which puts him at increased risk of recurrent falls and risk of bleeding. 07/17/2018: SBP 062674, T-max 97.4, [place] 13106, SPO2 90-98% FiO2 21%, 2 L NC. (2) Hypotension Qualifiers: Hypotension type: unspecified hypotension type Qualified Code(s): I95.9 - Hypotension, unspecified Is this a current diagnosis for this admission?: Yes Plan: Resolved. Most likely was related to polypharmacy and A. fib RVR. Note clonidine, hydrochlorothiazide, telmisartan, and Lasix have been held on this hospitalization patient SBP has been 170229. Continue holding HCTZ, clonidine. Start low-dose ARB and diuretics guided by BP and volume status. He has history of CHF and will benefit from low-dose diuretics on top of beta- blockers. 07/17/2018: SBP 574614, T-max 97.4, [place] 35354, SPO2 90-98% FiO2 21%, 2 L NC. (3) CHF exacerbation Qualifiers: Heart failure type: unspecified Qualified Code(s): I50.9 - Heart failure, unspecified Is this a current diagnosis for this admission?: Yes Plan: No 2D echo available. On history of CAD, physical examination and BNP 3430 Restart beta-blockers, ARB, diuretics, volume restriction, monitor volume status. Will obtain 2D echo. 07/17/2018: SBP 344867, T-max 97.4, [place] 37663, SPO2 90-98% FiO2 21%, 2 L NC. Wt 85.5 up from 81.4 on admission. (4) Fall Is this a current diagnosis for this admission?: Yes Plan: Likely due to hypotension physical deconditioning however no CT head was done on admission. We will obtain a CT head. Continue PT OT ST. Continue fall, aspiration, seizure precautions. Plan is to transfer to rehab upon discharge. (5) Decubitus ulcer of sacral region, stage 1 Is this a current diagnosis for this admission?: Yes Plan: Decubitus ulcer stage I. Noninfected. Likely caused by prolonged immobilization. Surgery was consulted for evaluation, recommending physical therapy and ambulation. Continue wound care, PT OT ST. Plan is to transfer to rehab on discharge. (6) Cellulitis Qualifiers: Site of cellulitis: extremity Site of cellulitis of extremity: lower extremity Laterality: left Qualified Code(s): L03.116 - Cellulitis of left lower limb Is this a current diagnosis for this admission?: Yes Plan: Patient was initially placed on IV antibiotics Vanco and Zosyn for presumptive cellulitis of sacral region antibiotics was DC'd as patient did not have any sign of infection was evaluated by audio visual production specialist. (7) Type 2 diabetes mellitus Qualifiers: Diabetes mellitus usp insulin use: without usp use Diabetes mellitus complication status: without complication Qualified Code(s): E11.9 - Type 2 diabetes mellitus without complications Is this a current diagnosis for this admission?: No Plan: Not controlled. 07/11/2018 hemoglobin A1c 11.5%. Continue diabetic diet, long-acting insulin, pre-meal insulin, sliding scale insulin, adjust meds as needed. (8) CAD status post coronary bypass graft Is this a current diagnosis for this admission?: No Plan: As per patient history of 2 CABGs in the 1950s. Continue beta-blockers, antiplatelets, ARB and statins. (9) Recent diagnosis of temporal arteritis Is this a current diagnosis for this admission?: No Plan: Restart steroids. Outpatient PCP follow-up. Denies any headache or vision changes on this admission. (10) Dementia Is this a current diagnosis for this admission?: No Plan: Restart home meds. (11) Hyperlipidemia Qualifiers: Hyperlipidemia type: unspecified Qualified Code(s): E78.5 - Hyperlipidemia, unspecified Is this a current diagnosis for this admission?: No Plan: Restart home meds.
[2018-07-17] MEDS ORDERED: FUROSEMIDE INJ/PF 20 MG/2 ML SDV IV SCH (15:15)
--- NOTE | 2018-07-17 15:37 | RADIOLOGY REPORT (SQ) ---
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 Images reviewed wi th bone, brain and subdural windows. Additional sagittal and coronal reconstructions were generated. Images stored on PACS. All CT scanners at this facility use dose modulation, iterative reconstruction, and/or weight based d osing when appropriate to reduce radiation dose to as low as reasonably achievable (ALARA). [facility]: Dose Right [facility]: CareDose [facility]: Dose Right [facility]: Teradose 4D [facility]: Cleeng RADIATION DOSE: CT Rad equipment meets quality standard of care and radiation dose reduction techniq ues were employed. CTDIvol: 48.6 mGy. DLP: 953 mGy-cm.mGy. LIMITATIONS: None. FINDINGS: VENTRICLES: Prominent. CEREBRUM: No masses. No hemorrhage. No midline shift. Stable areas of low density in the white mat ter most likely due to chronic micro-vascular ischemic change. No evidence for acute large vascular territory infarction. CEREBELLUM: No masses. No hemorrhage. Stable additional more focal area of hypoattenuation in the r ight cerebellar hemisphere. No evidence for acute infarction. EXTRAAXIAL SPACES: Age-related involutional change. No fluid collections. No masses. ORBITS AND GLOBE: No intra- or extraconal masses. Normal contour of globe without masses. Bilateral cataract surgery. CALVARIUM: No fracture. PARANASAL SINUSES: No fluid or mucosal thickening. SOFT TISSUES: No mass or hematoma. OTHER: No other significant finding. IMPRESSION: CHRONIC CHANGES OF ATROPHY AND MICROVASCULAR ISCHEMIA. NO ACUTE PROCESS. EVIDENCE OF ACUTE STROKE: NO. TECHNICAL DOCUMENTATION: JOB ID: [id number] Quality ID # [id number]: Final reports with documentation of one or more dose reduction techniques (e.g., Au tomated exposure control, adjustment of the mA and/or kV according to patient size, use of iterative reconstruction technique) 2010 [employer]- All Rights Reserved Reading location - IP/workstation name: [email or web address]-
[2018-07-17] MEDS: LOSARTAN POTASSIUM 25 MG TABLET PO SCH (15:45)
[2018-07-17] MEDS: PREDNISONE 10 MG TABLET PO SCH (15:45)
[2018-07-17] MEDS: SIMVASTATIN 40 MG TABLET PO SCH (17:26)
[2018-07-17] MEDS: FUROSEMIDE 40 MG TABLET PO SCH (21:53)
[2018-07-18] MEDS: PANTOPRAZOLE SODIUM 40 MG TABLET.DR PO SCH ×2 (05:29→16:46)
[2018-07-18] MEDS: INSULIN LISPRO 100 UNIT/ML 3 ML VIAL SUBCUT SCH ×7 (07:24→21:38)
[2018-07-18 08:04] LABS: ABSOLUTE BASOPHILS # (AUTO) 0.1 10^3/uL (0.0-0.2); ABSOLUTE MONOCYTES (AUTO) 0.7 10^3/uL (0.1-1.4); ABSOLUTE NEUT (AUTO) 5.7 10^3/uL (1.7-8.2); BASOPHILS % (AUTO) 0.6 % (0-2); EOSINOPHILS % (AUTO) 0.4 % (0-6); HEMATOCRIT 35.7 % (37.9-51.0); HEMOGLOBIN 11.9 g/dL (13.5-17.0); LYMPHOCYTES % (AUTO) 23.6 % (13-45); MEAN CORPUSCULAR HEMOGLOBIN 30.5 pg (27.0-33.4); MEAN CORPUSCULAR HGB CONC 33.4 g/dL (32.0-36.0); MEAN CORPUSCULAR VOLUME 92 fl (80-97); PLATELET COUNT 297 10^3/uL (150-450); RED CELL DISTRIBUTION WIDTH 15.3 % (11.5-14.0); SEGMENTED NEUTROPHILS % (AUTO) 67.4 % (42-78); TOTAL CELLS COUNTED % (AUTO) 100 %; WHITE BLOOD COUNT 8.5 10^3/uL (4.0-10.5)
[2018-07-18 08:22] LABS: ALANINE AMINOTRANSFERASE 39 U/L (21-72); ALKALINE PHOSPHATASE 65 U/L (38-126); ANION GAP 7 (5-19); ASPARTATE AMINO TRANSFERASE 33 U/L (17-59); BILIRUBIN,DIRECT 0.3 mg/dL (0.0-0.4); BILIRUBIN,TOTAL 0.7 mg/dL (0.2-1.3); BLOOD UREA NITROGEN 13 mg/dL (7-20); CALCIUM 9.6 mg/dL (8.4-10.2); CARBON DIOXIDE 32 mmol/L (22-30); CHLORIDE 103 mmol/L (98-107); GLUCOSE 127 mg/dL (75-110); POTASSIUM 4.1 mmol/L (3.6-5.0); SODIUM 142.2 mmol/L (137-145); TOTAL PROTEIN 5.9 g/dL (6.3-8.2)
[2018-07-18] MEDS: GABAPENTIN 300 MG CAPSULE PO SCH ×2 (09:24→21:37)
[2018-07-18] MEDS: FUROSEMIDE 40 MG TABLET PO SCH ×2 (09:24→21:37)
[2018-07-18] MEDS: METOPROLOL TARTRATE 100 MG TABLET PO SCH ×2 (09:25→21:37)
[2018-07-18] MEDS: MODAFINIL 100 MG TABLET PO SCH (09:25)
[2018-07-18] MEDS: PREDNISONE 10 MG TABLET PO SCH (09:25)
[2018-07-18] MEDS: POTASSIUM CHLORIDE 10 MEQ CAPSULE.ER PO SCH (09:25)
[2018-07-18] MEDS: LORATADINE 10 MG TABLET PO SCH (09:25)
[2018-07-18] MEDS: LOSARTAN POTASSIUM 25 MG TABLET PO SCH (09:25)
[2018-07-18] MEDS: DOCUSATE SODIUM 100 MG CAPSULE PO SCH ×2 (09:26→17:50)
[2018-07-18] MEDS: INSULIN GLARGINE,HUM.REC.ANLOG 1,000 UNIT/10 ML VIAL SUBCUT SCH (09:26)
[2018-07-18] MEDS: MEMANTINE PO SCH (09:27)
[2018-07-18] MEDS: DONEPEZIL PO SCH (09:27)
[2018-07-18] MEDS: EZETIMIBE 10 MG TABLET PO SCH (09:28)
[2018-07-18] MEDS: ENOXAPARIN SODIUM INJ 40 MG/0.4 ML DISP.SYRIN SUBCUT SCH (09:40)
[2018-07-18] MEDS ORDERED: ISOSORBIDE MONONITRATE 30 MG TAB.ER.24H PO SCH (10:00)
[2018-07-18] MEDS ORDERED: ISOSORBIDE MONONITRATE 60 MG TAB.ER.24H PO SCH (10:00)
[2018-07-18] MEDS ORDERED: DEXTROSE 40% GEL 15 GM TUBE PO PRN ×2 (11:57)
[2018-07-18] MEDS ORDERED: GLUCAGON,HUMAN RECOMB 1 MG INJ IM PRN (11:57)
[2018-07-18] MEDS ORDERED: DEXTROSE 50%-WATER 25 GM/50 ML DISP.SYRIN IV PRN ×2 (11:57)
--- NOTE | 2018-07-18 12:17 | PDOC PROGRESS REPORT ---
Subjective Progress Note for:: 07/18/18 Subjective:: 87-year-old male past medical history of CAD, hypertension, A. fib, who presented to ED complaining of generalized weakness. Patient apparently had a fall around 4 AM in the morning this morning, where his legs gave out from underneath him and he struck the right side of his body into a door frame, and slid down, denies any head injury or neck injury. Per EMS the patient's blood pressure was in the 80s systolic, and per family it was 70/50. He was given 500 mL's of fluid by EMS, his blood sugar was 288. At this time the patient is complaining of pain in his right side, describes it as a 6 out of 10 aching pain. He recently has a new bedsore on his backside, and has had redness in the left leg. He is complaining of some pain in the left leg as well and is tender to touch. He is on blood pressure medication as well as Lasix for lower extremity edema. 07/17/2018. No acute events overnight. Patient complaining of left lower extremity chronic pain, very anxious to receive physical therapy and be able to walk again. Denies any fever, chills, nausea, vomiting, diarrhea, constipation or any urinary symptoms. Patient is being accepted at a rehab however his underlying medical conditions have not been optimized. 07/18/2018. No acute events overnight. Stating that he was not able to sleep overnight due to being restless, and complaining of chronic persistent left lower extremity pain, to be discharged to rehab where he can walk. Denies any fever, chills, nausea, vomiting, diarrhea, constipation or any urinary symptoms. Reason For Visit: CELLULITIS,HYPOTENSION Physical Exam Vital Signs: Temp Pulse Resp BP Pulse Ox 98 F 101 H 18 126/88 H 95 07/18/18 08:00 07/18/18 08:00 07/18/18 08:00 07/18/18 08:00 07/18/18 08:00 Intake & Output 07/17/18 07/18/18 07/19/18 06:59 06:59 06:59 Intake Total 660 420 Output Total 50 1070 Balance 610 -650 Weight 85.5 kg 85.2 kg General appearance: PRESENT: no acute distress, well-developed, well-nourished Head exam: PRESENT: atraumatic, normocephalic Neck exam: ABSENT: carotid bruit, JVD, lymphadenopathy, thyromegaly Respiratory exam: PRESENT: clear to auscultation last. ABSENT: rales, rhonchi, wheezes Cardiovascular exam: PRESENT: irregular rhythm Pulses: PRESENT: normal dorsalis pedis pul Extremities exam: PRESENT: full ROM, tenderness - Rt Sanchez. ABSENT: calf tenderness, clubbing, pedal edema Neurological exam: PRESENT: alert, awake, oriented to person, CN II-XII grossly intact, motor sensory deficit Results Laboratory Results: 07/18/18 07:00 07/18/18 07:00 07/18/18 07/18/18 07:00 07:00 WBC 8.5 RBC 3.90 L Hgb 11.9 L Hct 35.7 L MCV 92 MCH 30.5 MCHC 33.4 RDW 15.3 H Plt Count 297 Seg Neutrophils % 67.4 Lymphocytes % 23.6 Monocytes % 8.0 Eosinophils % 0.4 Basophils % 0.6 Absolute Neutrophils 5.7 Absolute Lymphocytes 2.0 Absolute Monocytes 0.7 Absolute Eosinophils 0.0 Absolute Basophils 0.1 Sodium 142.2 Potassium 4.1 Chloride 103 Carbon Dioxide 32 H Anion Gap 7 BUN 13 Creatinine 0.70 Est GFR ( Amer) > 60 Est GFR (Non-Af Amer) > 60 Glucose 127 H Calcium 9.6 Magnesium 2.2 Total Bilirubin 0.7 AST 33 ALT 39 Alkaline Phosphatase 65 Total Protein 5.9 L Albumin 3.0 L 07/10/18 07/10/18 07/10/18 16:56 16:56 19:43 Creatine Kinase 38 L 34 L CK-MB (CK-2) Troponin I 0.016 NT-Pro-B Natriuret Pep 07/10/18 07/11/18 07/11/18 19:43 02:19 02:19 Creatine Kinase 27 L CK-MB (CK-2) 0.91 0.83 Troponin I 0.016 0.019 NT-Pro-B Natriuret Pep 07/11/18 07/11/18 08:27 08:27 Creatine Kinase 26 L CK-MB (CK-2) 0.80 Troponin I 0.020 NT-Pro-B Natriuret Pep 3430 H Impressions: Ribs w/Chest X-Ray 07/10/18 15:29 IMPRESSION: 1. No pneumothorax. No displaced rib fracture. 2. 2 curvilinear metallic densities overlie right lateral chest, possibly surgical clips although foreign body is not excluded. Recommend correlation with patient symptoms/ physical exam. Head CT 07/17/18 14:44 IMPRESSION: CHRONIC CHANGES OF ATROPHY AND MICROVASCULAR ISCHEMIA. NO ACUTE PROCESS. EVIDENCE OF ACUTE STROKE: NO. Assessment and Plan - Diagnosis (1) Atrial fibrillation Is this a current diagnosis for this admission?: No Plan: A. fib RVR. Increase metoprolol to 200 p.o. twice daily. Continue Cardizem as needed. Had discussion with hir her daughter who is the POA about the risk and benefits of ongoing anticoagulation, family has decided to hold off on anticoagulation at this point. 07/17/2018: SBP 544783, T-max 97.4, [place] 55262, SPO2 90-98% FiO2 21%, 2 L NC. 07/18/2018: SBP 970652, T-max 98.4, pulse 28120, RR 1720, SPO2 95% RA. (2) CHF exacerbation Qualifiers: Heart failure type: unspecified Qualified Code(s): I50.9 - Heart failure, unspecified Is this a current diagnosis for this admission?: Yes Plan: Improving. Patient currently on room air. Fluid balance -650. No 2D echo available. Per history of CAD, physical examination and BNP 3430. Pending echo. Continue beta-blockers, ARB, diuretics added by volume status and vitals, continue volume restriction and monitor volume status. 07/17/2018: SBP 993401, T-max 97.4, HR 93360, SPO2 90-98% FiO2 21%, 2 L NC. Wt 85.5 up from 81.4 on admission. 07/18/2018: SBP 622757, T-max 98.4, pulse 46727, RR 1720, SPO2 95% RA. Fluid balance -650. (3) Acute and chronic respiratory failure with hypoxia Is this a current diagnosis for this admission?: Yes Plan: Most likely due to acute CHF exacerbation. Improved. Off of oxygen. Currently patient is on room air saturating WNL. (4) Hypertension Is this a current diagnosis for this admission?: No Plan: Normotensive. 07/18/2018: SBP 943649, T-max 98.4, pulse 81436, RR 1720, SPO2 95% RA. Continue ARB, diuretics, beta-blockers. Monitor vitals and adjust dosage as needed. (5) Fall Is this a current diagnosis for this admission?: Yes Plan: Likely due to hypotension and physical deconditioning. CT head negative for any acute changes. Continue PT OT ST. Continue fall, aspiration, seizure precautions. Plan is to transfer to rehab upon discharge. (6) Decubitus ulcer of sacral region, stage 1 Is this a current diagnosis for this admission?: Yes Plan: Decubitus ulcer stage I. Noninfected. Likely caused by prolonged immobilization. Surgery was consulted for evaluation, recommending physical therapy and ambulation. Continue wound care, PT OT ST. Plan is to transfer to rehab on discharge. (7) Cellulitis Qualifiers: Site of cellulitis: extremity Site of cellulitis of extremity: lower e xtremity Laterality: left Qualified Code(s): L03.116 - Cellulitis of left lower limb Is this a current diagnosis for this admission?: Yes Plan: Patient was initially placed on IV antibiotics Vanco and Zosyn for presumptive cellulitis of sacral region antibiotics was DC'd as patient did not have any sign of infection was evaluated by surgical appliances salesperson. (8) Type 2 diabetes mellitus Qualifiers: Diabetes mellitus terminal superintendent insulin use: without terminal superintendent use Diabetes mellitus complication status: without complication Qualified Code(s): E11.9 - Type 2 diabetes mellitus without complications Is this a current diagnosis for this admission?: No Plan: Improving. 07/11/2018 hemoglobin A1c 11.5%. Continue diabetic diet, long-acting insulin, pre-meal insulin, sliding scale insulin, adjust meds as needed. 07/18/2018: FBG 127 (9) CAD status post coronary bypass graft Is this a current diagnosis for this admission?: No Plan: As per patient history of 2 CABGs in the 1950s. Continue beta-blockers, antiplatelets, ARB and statins. (10) Recent diagnosis of temporal arteritis Is this a current diagnosis for this admission?: No Plan: Restart steroids. Outpatient PCP follow-up. Denies any headache or vision changes on this admission. (11) Dementia Is this a current diagnosis for this admission?: No Plan: Restart home meds. (12) Hyperlipidemia Qualifiers: Hyperlipidemia type: unspecified Qualified Code(s): E78.5 - Hyperlipidemia, unspecified Is this a current diagnosis for this admission?: No Plan: Restart home meds.
[2018-07-18] MEDS ORDERED: INSULIN LISPRO 100 UNIT/ML 3 ML VIAL SUBCUT SCH (16:00)
[2018-07-18] MEDS: SIMVASTATIN 40 MG TABLET PO SCH (17:52)
[2018-07-18] MEDS ORDERED: INSULIN GLARGINE,HUM.REC.ANLOG 1,000 UNIT/10 ML VIAL SUBCUT SCH ×2 (22:00)
[2018-07-19] MEDS: PANTOPRAZOLE SODIUM 40 MG TABLET.DR PO SCH (05:29)
[2018-07-19] MEDS: INSULIN LISPRO 100 UNIT/ML 3 ML VIAL SUBCUT SCH ×4 (07:59→11:47)
[2018-07-19] MEDS: ENOXAPARIN SODIUM INJ 40 MG/0.4 ML DISP.SYRIN SUBCUT SCH (09:46)
[2018-07-19] MEDS: DOCUSATE SODIUM 100 MG CAPSULE PO SCH (09:46)
[2018-07-19] MEDS: EZETIMIBE 10 MG TABLET PO SCH (09:56)
[2018-07-19] MEDS: LOSARTAN POTASSIUM 25 MG TABLET PO SCH (09:56)
[2018-07-19] MEDS: PREDNISONE 10 MG TABLET PO SCH (09:57)
[2018-07-19] MEDS: GABAPENTIN 300 MG CAPSULE PO SCH (09:57)
[2018-07-19] MEDS: LORATADINE 10 MG TABLET PO SCH (09:57)
[2018-07-19] MEDS: METOPROLOL TARTRATE 100 MG TABLET PO SCH (09:57)
[2018-07-19] MEDS: FUROSEMIDE 40 MG TABLET PO SCH (09:57)
[2018-07-19] MEDS: MEMANTINE PO SCH (09:59)
[2018-07-19] MEDS: DONEPEZIL PO SCH (09:59)
[2018-07-19] MEDS ORDERED: ISOSORBIDE MONONITRATE 30 MG TAB.ER.24H PO SCH (10:00)
--- NOTE | 2018-07-19 10:57 | PDOC TRANSFER SUMMARY ---
General Admission Date/PCP: 07/10/18 18:21 Resuscitation Status: Do Not Resuscitate - Transfer Diagnosis (1) Atrial fibrillation Is this a current diagnosis for this admission?: No (2) CHF exacerbation Is this a current diagnosis for this admission?: Yes (3) Acute and chronic respiratory failure with hypoxia Is this a current diagnosis for this admission?: Yes (4) Hypertension Is this a current diagnosis for this admission?: No (5) Fall Is this a current diagnosis for this admission?: Yes (6) Decubitus ulcer of sacral region, stage 1 Is this a current diagnosis for this admission?: Yes (7) Cellulitis Is this a current diagnosis for this admission?: Yes (8) Type 2 diabetes mellitus Is this a current diagnosis for this admission?: No (9) CAD status post coronary bypass graft Is this a current diagnosis for this admission?: No (10) Recent diagnosis of temporal arteritis Is this a current diagnosis for this admission?: No (11) Dementia Is this a current diagnosis for this admission?: No (12) Hyperlipidemia Is this a current diagnosis for this admission?: No (13) Hypotension Is this a current diagnosis for this admission?: Yes - Transfer Medications Home Medications: Ezetimibe [Zetia 10 mg Tablet] 10 mg PO DAILY 07/10/18 Gabapentin [Neurontin 300 mg Capsule] 300 mg PO Q12 07/10/18 Glimepiride [Amaryl 4 mg Tablet] 2 mg PO Q12 07/10/18 Modafinil [Provigil 100 mg Tablet] 100 mg PO QAM 07/10/18 Prednisone [Deltasone 10 mg Tablet] 20 mg PO DAILY 07/10/18 Simvastatin [Zocor 40 mg Tablet] 40 mg PO QPM 07/10/18 Sitagliptin Phos/Metformin HCl [Janumet 50-1,000 mg Tablet] 1 each PO BID 07/10/18 Transfer Medications: Current Medications Acetaminophen (Tylenol 325 Mg Tablet) 650 mg PO Q4HP PRN PRN Reason: FEVER >101 Stop: 08/09/18 18:38 Last Admin: 07/14/18 07:16 Dose: 650 mg Documented by: Dextrose (Dextrose Inj 50% Syringe (25 Gm/50 Ml)) 25 gm IV PRN PRN; Protocol PRN Reason: PER PROTOCOL Stop: 08/10/18 10:26 Dextrose (Dextrose Inj 50% Syringe (25 Gm/50 Ml)) 12.5 gm IV PRN PRN; Protocol PRN Reason: FOR BG 50-69 IN ALERT PATIENT Stop: 08/10/18 10:26 Diltiazem HCl (Cardizem Inj 25 Mg/5 Ml Vial) 10 mg IV Q6HP PRN PRN Reason: GIVE FOR HR > 130 Stop: 08/14/18 07:42 Docusate Sodium (Colace 100 Mg Capsule) 100 mg PO BID [facility] Stop: 08/10/18 09:59 Last Admin: 07/19/18 09:46 Dose: Not Given Documented by: Ezetimibe (Zetia 10 Mg Tablet) 10 mg PO DAILY [facility] Stop: 08/10/18 09:59 Last Admin: 07/19/18 09:56 Dose: 10 mg Documented by: Enoxaparin Sodium (Lovenox Inj 40 Mg/0.4 Ml Disp.Syrin) 40 mg SUBCUT DAILY [facility] Stop: 08/09/18 18:44 Last Admin: 07/19/18 09:46 Dose: Not Given Documented by: Furosemide (Lasix 40 Mg Tablet) 40 mg PO Q12 [facility] Stop: 08/16/18 21:59 Last Admin: 07/19/18 09:57 Dose: 40 mg Documented by: Gabapentin (Neurontin 300 Mg Capsule) 300 mg PO Q12 [facility] Stop: 08/10/18 09:59 Last Admin: 07/19/18 09:57 Dose: 300 mg Documented by: Glucagon (Glucagen Inj 1 Mg Vial) 1 mg IM PRN PRN; Protocol PRN Reason: Evaluate for BG < 70 Stop: 08/10/18 10:26 Glucose (Glutose 40% Gel 15 Gm Tube) 15 gm PO PRN PRN; Protocol PRN Reason: FOR BG 50-69 IN ALERT PATIENT Stop: 08/10/18 10:26 Glucose (Glutose 40% Gel 15 Gm Tube) 30 gm PO PRN PRN; Protocol PRN Reason: FOR BG < 50 IN ALERT PATIENT Stop: 08/10/18 10:26 Insulin Glargine (Lantus Insulin 100 Unit/1 Ml 10 Ml) 22 unit SUBCUT QHS [facility] Stop: 08/17/18 21:59 Last Admin: 07/18/18 21:39 Dose: 22 unit Documented by: Insulin Human Lispro (Humalog Insulin 100 Unit/1 Ml 3 Ml Vial) 0 - 12 unit SUBCUT ACHS [facility]; Protocol Stop: 08/10/18 10:59 Last Admin: 07/19/18 07:59 Dose: Not Given Documented by: Insulin Human Lispro (Humalog Insulin 100 Unit/1 Ml 3 Ml Vial) 7 unit SUBCUT AC [facility] Stop: 08/17/18 12:14 Last Admin: 07/19/18 09:58 Dose: 7 unit Documented by: Isosorbide Mononitrate (Imdur 30 Mg Tablet.Er) 15 mg PO DAILY [facility] Stop: 08/18/18 09:59 Last Admin: 07/19/18 09:57 Dose: 15 mg Documented by: Loratadine (Claritin 10 Mg Tablet) 10 mg PO DAILY [facility] Stop: 08/10/18 09:59 Last Admin: 07/19/18 09:57 Dose: 10 mg Documented by: Losartan Potassium (Cozaar 25 Mg Tablet) 25 mg PO DAILY [facility] Stop: 08/16/18 13:59 Last Admin: 07/19/18 09:56 Dose: 25 mg Documented by: Metoprolol Tartrate (Lopressor 100 Mg Tablet) 200 mg PO Q12 [facility] Stop: 08/17/18 21:59 Last Admin: 07/19/18 09:57 Dose: 200 mg Documented by: Ondansetron HCl (Zofran Inj/Pf 4 Mg/2 Ml Sdv) 4 mg IV Q6HP PRN PRN Reason: FOR NAUSEA/VOMITING Stop: 08/09/18 18:38 Pantoprazole Sodium (Protonix [address] Tablet) 40 mg PO BID@0600,1700 [facility] Stop: 08/10/18 05:59 Last Admin: 07/19/18 05:29 Dose: Not Given Documented by: Namzaric (Memantine/Donepezil) Er Caps Titration Pack 1 dose PO DAILY [facility] Stop: 08/10/18 11:59 Last Admin: 07/19/18 09:59 Dose: 1 cap Documented by: Prednisone (Deltasone 10 Mg Tablet) 20 mg PO DAILY [facility] Stop: 08/16/18 13:59 Last Admin: 07/19/18 09:57 Dose: 20 mg Documented by: Simvastatin (Zocor 40 Mg Tablet) 40 mg PO QPM [facility] Stop: 08/10/18 17:59 Last Admin: 07/18/18 17:52 Dose: 40 mg Documented by: Sodium Chloride (Saline Flush 2.5 Ml Monoject Prefil Syrin) 2.5 ml IV Q8 IMELDA Stop: 08/09/18 21:59 Last Admin: 07/19/18 05:30 Dose: Not Given Documented by: - Allergies Allergies/Adverse Reactions: No Known Allergies Allergy (Verified 07/10/18 16:47) Hospital Course Hospital Course: 87-year-old male past medical history of CAD, hypertension, A. fib, who presented to ED complaining of generalized weakness. Patient apparently had a fall around 4 AM in the morning this morning, where his legs gave out from underneath him and he struck the right side of his body into a door frame, and slid down, denies any head injury or neck injury. Per EMS the patient's blood pressure was in the 80s systolic, and per family it was 70/50. He was given 500 mL's of fluid by EMS, his blood sugar was 288. At this time the patient is complaining of pain in his right side, describes it as a 6 out of 10 aching pain. He recently has a new bedsore on his backside, and has had redness in the left leg. He is complaining of some pain in the left leg as well and is tender to touch. He is on blood pressure medication as well as Lasix for lower extremity edema. 07/17/2018. No acute events overnight. Patient complaining of left lower extremity chronic pain stating that he was exposed to agent orange while employed at [place] was in the . He is very anxious to receive physical therapy and be able to walk again. Denies any fever, chills, nausea, vomiting, diarrhea, constipation or any urinary symptoms. Patient is being accepted at a rehab however his underlying medical conditions have not been optimized. 07/18/2018. No acute events overnight. Stating that he was not able to sleep o vernight due to being restless, and complaining of chronic persistent left lower extremity pain, to be discharged to rehab where he can walk. Denies any fever, chills, nausea, vomiting, diarrhea, constipation or any urinary symptoms. (1) Atrial fibrillation Rate controlled. Not a candidate for anticoagulation. Toprol was uptitrated to 200 p.o. twice daily for rate of 8090. Increased metoprolol to 200 p.o. twice daily. Continue Cardizem as needed. Had discussion with hir her daughter who is the POA about the risk and benefits of ongoing anticoagulation, family has decided to hold off on anticoagulation at this point. 07/17/2018: SBP 787524, T-max 97.4, HR 95129, SPO2 90-98% FiO2 21%, 2 L NC. 07/18/2018: SBP 827116, T-max 98.4, pulse 43776, RR 1720, SPO2 95% RA. (2) CHF exacerbation Improving. Patient currently on room air. Fluid balance -650. No 2D echo available. Per history of CAD, physical examination and BNP 3430. Pending 2D echo results. Continued beta-blockers, ARB, and Lasix was increased to 40 mg p.o. twice daily while continuing volume restriction and monitoring volume status. Maintained negative fluid balance. 07/17/2018: SBP 508802, T-max 97.4, HR 67581, SPO2 90-98% FiO2 21%, 2 L NC. Wt 85.5 up from 81.4 on admission. 07/18/2018: SBP 331981, T-max 98.4, pulse 61129, RR 1720, SPO2 95% RA. Fluid balance -650. (3) Acute and chronic respiratory failure with hypoxia Resolved. Most likely due to acute CHF exacerbation. (4) Hypertension Normotensive. 07/18/2018: SBP 311425, T-max 98.4, pulse 93164, RR 1720, SPO2 95% RA. Continue ARB, diuretics, beta-blockers. Monitor vitals and adjust dosage as needed. (5) Fall Likely due to hypotension caused by polypharmacy and physical deconditioning. No recurrence of fall. His blood pressure medications were reconciled. He was provided with a new prescription for his blood pressure meds. CT head negative for any acute changes. Continue PT OT ST. Continue fall, as piration, seizure precautions. Transfer to rehab. Needs to follow-up with PCP for week consultation of his BP meds. (6) Decubitus ulcer of sacral region, stage 1 Decubitus ulcer stage I. Noninfected. Likely caused by prolonged immobilization. Surgery was consulted for evaluation, recommending physical therapy and ambulation. Continue wound care, PT OT ST. Plan is to transfer to rehab on discharge. (7) Cellulitis Resolved. Patient was initially placed on IV antibiotics Vanco and Zosyn for presumptive cellulitis of sacral region antibiotics was DC'd as patient did not have any sign of infection was evaluated by surgical brace maker. (8) Type 2 diabetes mellitus Improving. 07/11/2018 hemoglobin A1c 11.5%. 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 Was started on diabetic diet, long-acting insulin, pre-meal insulin, sliding scale insulin, adjust meds as needed. 07/18/2018: FBG 127 Discharged on new insulin regimen as follows restarting his home meds upon discharge. Patient is to follow with PCP for reevaluation of the need for insulin. (9) CAD status post coronary bypass graft As per patient history of 2 CABGs in the 1950s. Continue beta-blockers, antiplatelets, ARB and statins. (10) Recent diagnosis of temporal arteritis Currently on tapered dose. Continued steroids at 20 mg p.o. daily. Followed managed by PCP as per daughter. Outpatient PCP follow-up. Denies any headache or vision changes on this admission. (11) Dementia Restart home meds. (12) Hyperlipidemia Restart home meds. (13) Hypotension Resolved. Was most likely caused by polypharmacy and deconditioning. Note clonidine, hydrochlorothiazide, telmisartan, and Lasix have been held on this hospitalization patient SBP has been 115070. HCTZ clonidine and telmisartan were DC'd. Diuretics were restarted as patient's showed signs of CHF exacerbation. Normotensive on the day of discharge. Physical Exam Vital Signs: Temp Pulse Resp BP Pulse Ox 97.5 F 85 19 121/72 95 07/19/18 08:00 07/19/18 08:00 07/19/18 08:00 07/19/18 08:00 07/19/18 08:00 Intake & Output 07/18/18 07/19/18 07/20/18 06:59 06:59 06:59 Intake Total 420 360 Output Total 1070 650 Balance -650 -290 Weight 85.2 kg 86.6 kg General appearance: PRESENT: no acute distress, well-developed, well-nourished Head exam: PRESENT: atraumatic, normocephalic Eye exam: PRESENT: conjunctiva pink, EOMI, PERRLA. ABSENT: scleral icterus Ear exam: PRESENT: normal external ear exam Mouth exam: PRESENT: moist, tongue midline Neck exam: ABSENT: carotid bruit, JVD, lymphadenopathy, thyromegaly Respiratory exam: PRESENT: clear to auscultation last. ABSENT: rales, rhonchi, wheezes Cardiovascular exam: PRESENT: RRR. ABSENT: diastolic murmur, rubs, systolic murmur Pulses: PRESENT: normal dorsalis pedis pul Vascular exam: PRESENT: normal capillary refill GI/Abdominal exam: PRESENT: normal bowel sounds, soft. ABSENT: distended, guarding, mass, organolmegaly, rebound, tenderness Rectal exam: PRESENT: deferred Extremities exam: PRESENT: full ROM. ABSENT: calf tenderness, clubbing, pedal edema Musculoskeletal exam: PRESENT: tenderness - Left anterior garner. Neurological exam: PRESENT: alert, awake, oriented to person, oriented to place, oriented to time, CN II-XII grossly intact. ABSENT: motor sensory deficit Psychiatric exam: PRESENT: appropriate affect, normal mood. ABSENT: homicidal ideation, suicidal ideation Skin exam: PRESENT: dry, intact, warm. ABSENT: cyanosis, rash Results Laboratory Results: 07/18/18 07:00 07/18/18 07:00 07/10/18 07/10/18 07/10/18 16:56 16:56 19:43 Creatine Kinase 38 L 34 L CK-MB (CK-2) Troponin I 0.016 NT-Pro-B Natriuret Pep 07/10/18 07/11/18 07/11/18 19:43 02:19 02:19 Creatine Kinase 27 L CK-MB (CK-2) 0.91 0.83 Troponin I 0.016 0.019 NT-Pro-B Natriuret Pep 07/11/18 07/11/18 08:27 08:27 Creatine Kinase 26 L CK-MB (CK-2) 0.80 Troponin I 0.020 NT-Pro-B Natriuret Pep 3430 H Impressions: Ribs w/Chest X-Ray 07/10/18 15:29 IMPRESSION: 1. No pneumothorax. No displaced rib fracture. 2. 2 curvilinear metallic densities overlie right lateral chest, possibly surgical clips although foreign body is not excluded. Recommend correlation with patient symptoms/ physical exam. Head CT 07/17/18 14:44 IMPRESSION: CHRONIC CHANGES OF ATROPHY AND MICROVASCULAR ISCHEMIA. NO ACUTE PROCESS. EVIDENCE OF ACUTE STROKE: NO.
[2018-07-19 16:34] VITALS: BP 119/82
--- NOTE | 2018-07-22 22:48 | XCELERA REPORT ---
[address] [address] Transthoracic Echocardiogram Report Name: CAMPOS ALVAREZ Age: 87 yrs Gender: Male : 1930 Patient Status: Inpatient Patient Location: [address] [place], [place] [address]A Study Date: 07/17/2018 07:03 PM Height: 70 in Weight: 188 lb BSA: 2.0 m2 Procedure: A two-dimensional transthoracic echocardiogram with color flow and Doppler was performed. The study was technically difficult with many images being suboptimal in quality. Reason For Study: CHF History: CHF. Ordering Physician: GABY PEREZ Performed By: Cheri Wilson Interpretation Summary The left ventricle is mildly dilated. There is normal left ventricular wall thickness. LV EF is 40% to 45% Left ventricular systolic function is moderately reduced. There is moderate global hypokinesis of the left ventricle. There is no thrombus. Cannotassess for ASD,VSD , or PFO. The right ventricle is not well visualized secondary to technical limitations The right atrium is normal. The left atrium is moderately dilated. There is mild mitral annular calcification. There is no evidence of mitral valve prolapse. There is no vegetation seen on the mitral valve. There is no mitral valve stenosis. There is a mild amount of mitral regurgitation There is no aortic valvular vegetation. There is aortic sclerosis without aortic stenosis. There is no LVOT obstruction. There is a mild amount of aortic regurgitation There is no tricuspid stenosis. There is a moderate amount of tricuspid regurgitation There is mild pulmonary hypertension by echo RVSP is 41 mm of Hg , with Ra mean of 10. There is no pulmonic valvular stenosis. There is no pulmonic valvular regurgitation. The aortic root is not well visualized but is probably normal size. The inferior vena cava was not visualized There is no pericardial effusion. MMode/2D Measurements & Calculations RVDd: 2.7 cm LVIDd: 5.4 cm FS: 23.7 % Ao root diam: 3.1 cm IVSd: 1.1 cm LVIDs: 4.1 cm EDV(Teich): 143.4 ml Ao root area: 7.7 cm2 LVPWd: 1.1 cm ESV(Teich): 76.1 ml LA dimension: 4.6 cm EF(Teich): 46.9 % Doppler Measurements & Calculations MV E max filomena: MV P1/2t max filomena: Ao V2 max: AI max filomena: 82.4 cm/sec 107.4 cm/sec 136.3 cm/sec 359.1 cm/sec MV P1/2t: 49.1 msec Ao max PG: AI max P.6 mmHg MVA(P1/2t): 4.5 cm2 7.4 mmHg AI dec slope: MV dec slope: 178.2 cm/sec2 AI P1/2t: 590.3 msec 640.6 cm/sec2 MV dec time: 0.12 sec LV V1 max PG: PA V2 max: TR max filomena: AV P1/2t-pr_phl: 2.8 mmHg 99.9 cm/sec 278.7 cm/sec 603.7 msec LV V1 max: PA max P.0 mmHg TR max P.9 cm/sec 31.1 mmHg MV P1/2t-pr_phl: 49.1 msec Left Ventricle The left ventricle is mildly dilated. There is normal left ventricular wall thickness. LV EF is 40% to 45%. Left ventricular systolic function is moderately reduced. LV diastolic function could not be adequately assessed due to atrial fibrilation. There is moderate global hypokinesis of the left ventricle. There is no thrombus. Cannotassess for ASD,VSD , or PFO. Right Ventricle The right ventricle is not well visualized secondary to technical limitations. Atria The right atrium is normal. The left atrium is moderately dilated. Mitral Valve There is mild mitral annular calcification. There is no evidence of mitral valve prolapse. There is no vegetation seen on the mitral valve. There is no mitral valve stenosis. There is a mild amount of mitral regurgitation. Aortic Valve There is no aortic valvular vegetation. There is aortic sclerosis without aortic stenosis. There is no LVOT obstruction. There is a mild amount of aortic regurgitation. Tricuspid Valve There is no tricuspid stenosis. There is a moderate amount of tricuspid regurgitation. There is mild pulmonary hypertension by echo. RVSP is 41 mm of Hg , with Ra mean of 10. Pulmonic Valve There is no pulmonic valvular stenosis. There is no pulmonic valvular regurgitation. Great Vessels The aortic root is not well visualized but is probably normal size. The inferior vena cava was not visualized. Effusions There is no pericardial effusion. : GABY PEREZ > Radha Pena
== END 2018-07-19 16:34 | DRG 918 ==
LOC: ER 15:15 → OBSVTOIN 18:21 → EH 18:21 → 4N 20:50
PROVIDERS: ADMIT Internal Medicine; ATTEND Internal Medicine
DX: T46.5X1A Poisoning by other antihypertensive drugs, accidental (unintentional), initial encounter (principal); L03.317 Cellulitis of buttock; N17.9 Acute kidney failure, unspecified; I48.2 Chronic atrial fibrillation; Z66 Do not resuscitate; I95.2 Hypotension due to drugs; L89.321 Pressure ulcer of left buttock, stage 1; I11.0 Hypertensive heart disease with heart failure; I50.9 Heart failure, unspecified; I25.10 Atherosclerotic heart disease of native coronary artery without angina pectoris; E11.8 Type 2 diabetes mellitus with unspecified complications; E86.0 Dehydration; W18.39XA Other fall on same level, initial encounter; F03.90 Unspecified dementia, unspecified severity, without behavioral disturbance, psychotic disturbance, mood disturbance, and anxiety; I25.2 Old myocardial infarction; Y93.89 Activity, other specified; Y92.098 Other place in other non-institutional residence as the place of occurrence of the external cause; Z60.2 Problems related to living alone; Z91.81 History of falling; Z95.1 Presence of aortocoronary bypass graft; Z79.01 Long term (current) use of anticoagulants; Z79.84 Long term (current) use of oral hypoglycemic drugs; Z79.899 Other long term (current) drug therapy
CPT/HCPCS: 36415; 70450; 80053; 80061; 80202; 81001; 82140; 82550; 82553; 82565; 82803; 82962; 83036; 83605; 83735; 83880; 84443; 84484; 85025; 85610; 87040; 87086; 93005; 93010; 93306; 96365; 96366; 96372; 96375; 99291; C1758; J1650; J1815; J2060; J2270; J2405; J2543; J3010; J3370; J3490; J7030; J7050; J7060; J7120; J7512

== ENCOUNTER 2018-09-04 14:09 | Emergency (ER) | payer MEDICARE, OTHER ==
--- NOTE | 2018-09-04 15:36 | ER Document Report ---
ED Medical Screen (RME) - General Chief Complaint: Head Injury Stated Complaint: HEAD PAIN Time Seen by Provider: 09/04/18 15:32 Primary Care Provider: TEO REYNOSO MD [Primary Care Provider] - Follow up as needed Mode of Arrival: Medic Information source: Outside Facility Records Notes: 87-year-old male presented to ED for complaint of head and neck pain. He states it does not hurt constantly when it hurts it is extremely bad. He fell 3 weeks ago. He is sent to the ER he was sent to the ER for a CT of the head and neck. I have greeted and performed a rapid initial assessment of this patient. A comprehensive ED assessment and evaluation of the patient, analysis of test results and completion of medical decision making process will be conducted by an additional ED providers. Dictation of this chart was performed using voice recognition software; therefore, there may be some unintended grammatical errors. TRAVEL OUTSIDE OF THE [place] IN LAST 30 DAYS: No - Related Data Allergies/Adverse Reactions: No Known Allergies Allergy (Verified 09/04/18 14:09) Past Medical History - Past Medical History Cardiac Medical History: Reports: Hx Atrial Fibrillation - On Eliquis., Hx Heart Attack, Hx Hypertension Endocrine Medical History: Reports: Hx Diabetes Mellitus Type 2 Renal/ Medical History: Denies: Hx Peritoneal Dialysis Psychiatric Medical History: Reports: Hx Depression Past Surgical History: Reports: Hx Cardiac Catheterization, Hx Cardiac Surgery, Hx Open Heart Surgery, Other - Bypass twice - Immunizations Hx Diphtheria, Pertussis, Tetanus Vaccination: Yes Physical Exam - Vital signs Vitals: Temp Pulse Resp BP Pulse Ox 98.3 F 90 18 109/69 96 09/04/18 15:03 09/04/18 15:03 09/04/18 15:03 09/04/18 15:03 09/04/18 15:03 Course - Vital Signs Vital signs: Temp Pulse Resp BP Pulse Ox 98.3 F 90 18 109/69 96 09/04/18 15:03 09/04/18 15:03 09/04/18 15:03 09/04/18 15:03 09/04/18 15:03 Doctor's Discharge - Discharge Referrals: TEO REYNOSO MD [Primary Care Provider] - Follow up as needed
--- NOTE | 2018-09-04 16:23 | RADIOLOGY REPORT (SQ) ---
EXAM DESCRIPTION: CT HEAD WITHOUT COMPLETED DATE/TIME: 09/04/2018 4:13 pm REASON FOR STUDY: Fell 3 weeks ago continued pain head and neck deaf COMPARISON: 07/17/2018. TECHNIQUE: Axial images acquired through the brain without intravenous contrast. Images reviewed wi th bone, brain and subdural windows. Additional sagittal and coronal reconstructions were generated. Images stored on PACS. All CT scanners at this facility use dose modulation, iterative reconstruction, and/or weight based d osing when appropriate to reduce radiation dose to as low as reasonably achievable (ALARA). [facility]: Dose Right [facility]: CareDose [facility]: Dose Right [facility]: Teradose 4D [facility]: [employer] RADIATION DOSE: CT Rad equipment meets quality standard of care and radiation dose reduction techniq ues were employed. CTDIvol: 53.2 mGy. DLP: 1070 mGy-cm.mGy. LIMITATIONS: None. FINDINGS: VENTRICLES: Prominent. CEREBRUM: No masses. No hemorrhage. No midline shift. Areas of low density in the white matter mos t likely due to chronic micro-vascular ischemic change. No evidence for acute infarction. CEREBELLUM: No masses. No hemorrhage. No alteration of density. No evidence for acute infarction. Stable focal hypoattenuation within the right cerebellar hemisphere. EXTRAAXIAL SPACES: Age-related involutional change. No fluid collections. No masses. Hawk cisterna magna. ORBITS AND GLOBE: No intra- or extraconal masses. Normal contour of globe without masses. CALVARIUM: No fracture. PARANASAL SINUSES: No fluid or mucosal thickening. SOFT TISSUES: No mass or hematoma. OTHER: No other significant finding. IMPRESSION: CHRONIC CHANGES OF ATROPHY AND MICROVASCULAR ISCHEMIA. NO ACUTE PROCESS. EVIDENCE OF ACUTE STROKE: NO. TECHNICAL DOCUMENTATION: JOB ID: [id number] Quality ID # [id number]: Final reports with documentation of one or more dose reduction techniques (e.g., Au tomated exposure control, adjustment of the mA and/or kV according to patient size, use of iterative reconstruction technique) 2010 [employer]- All Rights Reserved Reading location - IP/workstation name: [email or web address], [email or web address]-
--- NOTE | 2018-09-04 16:28 | RADIOLOGY REPORT (SQ) ---
EXAM DESCRIPTION: CT CERVICAL SPINE WITHOUT COMPLETED DATE/TIME: 09/04/2018 4:13 pm REASON FOR STUDY: Fell 3 weeks ago continued pain head and neck deaf COMPARISON: None. TECHNIQUE: Axial images acquired through the cervical spine without intravenous contrast. Images re viewed with lung, soft tissue and bone windows. Reconstructed coronal and sagittal MPR images review ed. Images stored on PACS. All CT scanners at this facility use dose modulation, iterative reconstruction, and/or weight based d osing when appropriate to reduce radiation dose to as low as reasonably achievable (ALARA). [facility]: Dose Right [facility]: CareDose [facility]: Dose Right [facility]: Teradose 4D [facility]: [employer] RADIATION DOSE: CT Rad equipment meets quality standard of care and radiation dose reduction techniq ues were employed. CTDIvol: 18.6 mGy. DLP: 347 mGy-cm. mGy. LIMITATIONS: None. FINDINGS: ALIGNMENT: Straightening of the normal cervical lordosis, likely positional. MINERALIZATION: Normal. VERTEBRAL BODIES: No fractures or dislocation. DISCS: Multilevel degenerative disc disease with osteophytosis, greatest at C5-6 and C6-7. Small pos terior disc osteophytes at those levels with mild osseous canal narrowing. FACETS, LATERAL MASSES, POSTERIOR ELEMENTS: No facet dislocation or fracture. Multilevel facet hyper trophy throughout the cervical spine, greatest at C3-4 bilaterally with associated osseous neural for aminal narrowing. HARDWARE: None in the spine. VISUALIZED RIBS: No fractures. LUNG APICES AND SOFT TISSUES: Heterogeneous thyroid with a 13 mm hypodense right thyroid hypodense no dule. OTHER: No other significant finding. IMPRESSION: Multilevel degenerative changes of the cervical spine without evidence of acute bony abn ormality. TECHNICAL DOCUMENTATION: JOB ID: [id number] Quality ID # [id number]: Final reports with documentation of one or more dose reduction techniques (e.g., Au tomated exposure control, adjustment of the mA and/or kV according to patient size, use of iterative reconstruction technique) 2010 [employer]- All Rights Reserved Reading location - IP/workstation name: [email or web address]
[2018-09-04] MEDS ORDERED: ACETAMINOPHEN 325 MG TABLET PO ONE (19:33)
--- NOTE | 2018-09-04 19:38 | ER Document Report ---
ED General - General Chief Complaint: Head Injury Stated Complaint: HEAD PAIN Time Seen by Provider: 09/04/18 15:32 Primary Care Provider: TEO REYNOSO MD [Primary Care Provider] - Follow up as needed Mode of Arrival: Medic TRAVEL OUTSIDE OF THE [place] IN LAST 30 DAYS: No - HPI Notes: Patient is a 87-year-old male that presents to the emergency department for chief complaint of headache. Patient has advanced dementia and presents from halfway facility. Patient's daughter is at bedside providing HPI. She states that today he was sitting and grabbed at the back of his right neck. She states his face turned red and he seemed very uncomfortable for about 3 minutes and then returned to normal. He did not have a fall today however she states he did fall about 3 weeks ago. Patient landed on the right side 3 weeks ago while he was attempting to ambulate to the bathroom. He has had x-rays of his hip since that fall but never had imaging of his head. He was referred here from the detention today for CT scans and concerned that that fall may have been related to his headache today. Patient does take Tylenol occasionally for pain but has not had any today. He is unable to provide any HPI because of dementia. Past Medical History: Dementia, hypertension, A. fib, diabetes Past Surgical History: Reviewed in chart Social History: Lives at halfway facility. No tobacco or alcohol use Family History: Reviewed and noncontributory for presenting illness Allergies: Reviewed, see documented allergy list. REVIEW OF SYSTEMS: Unable to obtain because of dementia PHYSICAL EXAMINATION: Vital signs reviewed, nursing noted reviewed. GENERAL: Well-appearing, well-nourished and in no acute distress. HEAD: Atraumatic, normocephalic. EYES: Eyes appear normal, extraocular movements intact, sclera anicteric, conjunctiva are normal. ENT: No temporal tenderness or erythema, nares patent, oropharynx clear without exudates. Moist mucous membranes. NECK: No midline or paraspinal tenderness, normal range of motion, supple without lymphadenopathy LUNGS: Breath sounds clear to auscultation bilaterally and equal. No wheezes rales or rhonchi. HEART: Regular rate and rhythm without murmurs ABDOMEN: Soft, nontender, normoactive bowel sounds. No rebound, guarding, or rigidity. No masses appreciated. EXTREMITIES: Nontender, good range of motion, +2 pitting edema bilateral lower extremities symmetric NEUROLOGICAL: Oriented to person only, moves all extremities spontaneously Motor and sensory grossly intact on exam. PSYCH: Agitated mood, normal affect. SKIN: Warm, Dry, normal turgor, mild erythema to left pretibial region consistent with venous stasis no draining wounds - Related Data Allergies/Adverse Reactions: No Known Allergies Allergy (Verified 09/04/18 14:09) Past Medical History - General Information source: Outside Facility Records - Social History Smoking Status: Never Smoker Chew tobacco use (# tins/day): No Frequency of alcohol use: None Drug Abuse: None Family History: Reviewed & Not Pertinent Patient has suicidal ideation: No Patient has homicidal ideation: No - Past Medical History Cardiac Medical History: Reports: Hx Atrial Fibrillation - On Eliquis., Hx Congestive Heart Failure, Hx Heart Attack, Hx Hypertension Endocrine Medical History: Reports: Hx Diabetes Mellitus Type 2 Renal/ Medical History: Denies: Hx Peritoneal Dialysis Musculoskeletal Medical History: Reports Hx Arthritis - Osteo Psychiatric Medical History: Reports: Hx Depression Past Surgical History: Reports: Hx Cardiac Catheterization, Hx Cardiac Surgery, Hx Open Heart Surgery, Other - Bypass twice - Immunizations Hx Diphtheria, Pertussis, Tetanus Vaccination: Yes Hx Pneumococcal Vaccination: 09/12/10 Physical Exam - Vital signs Vitals: Temp Pulse Resp BP Pulse Ox 98.3 F 90 18 109/69 96 09/04/18 15:03 09/04/18 15:03 09/04/18 15:03 09/04/18 15:03 09/04/18 15:03 Course - Re-evaluation Re-evalutation: 09/04/18 19:36 Vitals reviewed. Nursing notes reviewed. Patient has a recent diagnosis of giant cell arteritis and is currently weaning off of steroids. He has been followed closely by his primary care. He does not have any tenderness over his right yazdanism to suggest exacerbation requiring increased doses of steroids. Patient had CT imaging of his head and cervical spine today which are negative. He currently is not expressing any pain but will be given a dose of Tylenol to help prevent any further pains this evening. Patient will be discharged back to halfway facility. Daughter is in agreement with this plan of care and has no other concerns currently. Cervical Spine CT 09/04/18 15:32 IMPRESSION: Multilevel degenerative changes of the cervical spine without evidence of acute bony abnormality. Head CT 09/04/18 15:32 IMPRESSION: CHRONIC CHANGES OF ATROPHY AND MICROVASCULAR ISCHEMIA. NO ACUTE PROCESS. EVIDENCE OF ACUTE STROKE: NO. - Vital Signs Vital signs: Temp Pulse Resp BP Pulse Ox 98.3 F 90 18 109/69 96 09/04/18 15:03 09/04/18 15:03 09/04/18 15:03 09/04/18 15:03 09/04/18 15:03 Discharge - Discharge Clinical Impression: Headache Qualifiers: Headache type: unspecified Headache chronicity pattern: acute headache Intractability: not intractable Qualified Code(s): R51 - Headache Condition: Stable Disposition: HOME, SELF-CARE Instructions: Headache ([facility]) Additional Instructions: Please return to the emergency department if you have any worsening, or concern of your symptoms. Please return to the emergency department if you develop chest pain, difficulty breathing, severe abdominal pain, or ongoing vomiting. Please follow-up with your primary care physician in 2-3 days and any other recommended physicians. If prescribed, take all medications as directed. If you have any questions or concerns do not hesitate to return the emergency department for evaluation. [] Referrals: TEO REYNOSO MD [Primary Care Provider] - Follow up tomorrow
[2018-09-04 20:44] VITALS: BP 103/61
== END 2018-09-04 20:57 | disposition home or self-care (01) ==
LOC: ER 14:09
DX: R51 Headache (principal); Z91.81 History of falling; F03.90 Unspecified dementia, unspecified severity, without behavioral disturbance, psychotic disturbance, mood disturbance, and anxiety; M31.6 Other giant cell arteritis; M47.9 Spondylosis, unspecified; R60.0 Localized edema; E11.9 Type 2 diabetes mellitus without complications; I10 Essential (primary) hypertension
CPT/HCPCS: 99285; 70450; 72125; A9270

== ENCOUNTER 2018-11-06 15:46 | Inpatient (IN) | payer MEDICARE, OTHER ==
--- NOTE | 2018-11-06 16:35 | ER Document Report ---
ED General - General Stated Complaint: SWOLLEN TESTICALS Time Seen by Provider: 11/06/18 16:24 TRAVEL OUTSIDE OF THE [place] IN LAST 30 DAYS: No - HPI Notes: Limited history due to patient's history of dementia. Was brought in by EMS per nurse stated at his home for testicular swelling and penile swelling. Patient denies any pain anywhere at this time. 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 Psychiatric Medical History: Reports: Hx Depression Past Surgical History: Reports: Hx Cardiac Catheterization, Hx Cardiac Surgery, Hx Open Heart Surgery, Other - Bypass twice - Immunizations Hx Diphtheria, Pertussis, Tetanus Vaccination: Yes Hx Pneumococcal Vaccination: 09/12/10 Review of Systems - Review of Systems Constitutional: No symptoms reported EENT: No symptoms reported Cardiovascular: No symptoms reported Respiratory: No symptoms reported Gastrointestinal: No symptoms reported Genitourinary: No symptoms reported Male Genitourinary: See HPI Musculoskeletal: No symptoms reported Skin: No symptoms reported Hematologic/Lymphatic: No symptoms reported Neurological/Psychological: No symptoms reported Physical Exam - Vital signs Vitals: Resp Pulse Ox 19 95 11/06/18 16:38 11/06/18 16:38 - General General appearance: Appears well, Alert - HEENT Head: Normocephalic Eyes: Normal Conjunctiva: Normal Cornea: Normal Extraocular movements intact: Yes Pupils: PERRL Mucous membranes: Dry - Respiratory Respiratory status: No respiratory distress Chest status: Nontender Breath sounds: Other - Decreased air movement and crackles right lung base otherwise all other lung cooley clear with good air movement Chest palpation: Normal - Cardiovascular Rhythm: Irregularly irregular Heart sounds: Normal auscultation - Abdominal Inspection: Normal Distension: No distension Bowel sounds: Normal Tenderness: Other - Tenderness pelvic area - Genitourinary Notes: No erythema or warmth but obvious dependent edema around testicles bilaterally as well as penis, - Extremities General upper extremity: Normal inspection, Normal ROM General lower extremity: Other - Stasis dermatitis bilateral lower extremities with left lower extremity showing chronic ulceration proximately 2 x 2 cm. +2 bilateral pitting edema - Neurological Neuro grossly intact: Yes Cognition: Normal - Oriented to person only Course - Re-evaluation Re-evalutation: 11/06/18 19:30 Admit for anasarca, CHF exacerbation - Vital Signs Vital signs: Temp Pulse Resp BP Pulse Ox 97.9 F 84 20 125/70 92 11/06/18 23:14 11/06/18 23:35 11/06/18 23:14 11/06/18 23:14 11/06/18 23:14 - Laboratory Result Diagrams: 11/06/18 17:30 11/06/18 17:30 Laboratory results interpreted by me: 11/06/18 11/06/18 11/06/18 17:30 17:30 17:30 Hgb 12.5 L RDW 14.2 H [place] % (Auto) 13.1 H PT 16.8 H BUN Glucose NT-Pro-B Natriuret Pep 7150 H 11/06/18 17:30 Hgb RDW [place] % (Auto) PT BUN 26 H Glucose 132 H NT-Pro-B Natriuret Pep Discharge - Discharge Clinical Impression: Anasarca CHF exacerbation Qualifiers: Heart failure type: unspecified Qualified Code(s): I50.9 - Heart failure, unspecified Condition: Good Disposition: ADMITTED INPATIENT Admitting Provider: Yohannes (Hospitalist) Unit Admitted: Telemetry
--- NOTE | 2018-11-06 17:14 | RADIOLOGY REPORT (SQ) ---
EXAM DESCRIPTION: CHEST SINGLE VIEW COMPLETED DATE/TIME: 11/06/2018 4:57 pm REASON FOR STUDY: crackles RL base COMPARISON: 04/13/2018 EXAM PARAMETERS: NUMBER OF VIEWS: One view. TECHNIQUE: Single frontal radiographic view of the chest acquired. RADIATION DOSE: NA LIMITATIONS: None. FINDINGS: LUNGS AND PLEURA: Interval development of bilateral pleural effusions left greater than ri ght. Minimal basilar opacities. No pneumothorax. MEDIASTINUM AND HILAR STRUCTURES: No masses. Contour normal. HEART AND VASCULAR STRUCTURES: Heart normal in size. Normal vasculature. BONES: No acute findings. HARDWARE: None in the chest. OTHER: No other significant finding. IMPRESSION: Interval development of bilateral pleural effusions and minimal basilar opacities. TECHNICAL DOCUMENTATION: JOB ID: [id number] [employer] All Rights Reserved Reading location - IP/workstation name: [email or web address]
[2018-11-06 17:50] LABS: ABSOLUTE BASOPHILS # (AUTO) 0.1 10^3/uL (0.0-0.2); ABSOLUTE EOSINOPHILS # (AUTO) 0.2 10^3/uL (0.0-0.6); ABSOLUTE LYMPHOCYTES (AUTO) 1.6 10^3/uL (0.5-4.7); ABSOLUTE NEUT (AUTO) 5.1 10^3/uL (1.7-8.2); BASOPHILS % (AUTO) 0.8 % (0-2); EOSINOPHILS % (AUTO) 2.5 % (0-6); HEMATOCRIT 38.3 % (37.9-51.0); HEMOGLOBIN 12.5 g/dL (13.5-17.0); LYMPHOCYTES % (AUTO) 19.7 % (13-45); MEAN CORPUSCULAR HEMOGLOBIN 28.4 pg (27.0-33.4); MEAN CORPUSCULAR HGB CONC 32.6 g/dL (32.0-36.0); MEAN CORPUSCULAR VOLUME 87 fl (80-97); MONOCYTES % (AUTO) 13.1 % (3-13); PLATELET COUNT 169 10^3/uL (150-450); RED BLOOD COUNT 4.39 10^6/uL (4.35-5.55); RED CELL DISTRIBUTION WIDTH 14.2 % (11.5-14.0); SEGMENTED NEUTROPHILS % (AUTO) 63.9 % (42-78); TOTAL CELLS COUNTED % (AUTO) 100 %; WHITE BLOOD COUNT 7.9 10^3/uL (4.0-10.5)
[2018-11-06 18:11] LABS: INTERNATIONAL RATION (INR) 1.35; PROTHROMBIN TIME 16.8 SEC (11.4-15.4)
[2018-11-06 18:49] LABS: ALBUMIN 3.8 g/dL (3.5-5.0); ALKALINE PHOSPHATASE 66 U/L (38-126); ANION GAP 9 (5-19); ASPARTATE AMINO TRANSFERASE 29 U/L (17-59); BILIRUBIN,DIRECT 0.3 mg/dL (0.0-0.4); BILIRUBIN,TOTAL 0.8 mg/dL (0.2-1.3); BLOOD UREA NITROGEN 26 mg/dL (7-20); CALCIUM 9.8 mg/dL (8.4-10.2); CARBON DIOXIDE 29 mmol/L (22-30); CHLORIDE 101 mmol/L (98-107); GLUCOSE 132 mg/dL (75-110); POTASSIUM 4.5 mmol/L (3.6-5.0); TOTAL PROTEIN 6.5 g/dL (6.3-8.2)
[2018-11-06] MEDS ORDERED: FUROSEMIDE INJ/PF 40 MG/4 ML SDV IV ONE (18:53)
[2018-11-06] MEDS ORDERED: MAG HYDROX/AL HYDROX/SIMETH SUSP 30 ML UDCUP PO PRN (19:33)
[2018-11-06] MEDS ORDERED: ACETAMINOPHEN 325 MG TABLET PO PRN (19:33)
[2018-11-06] MEDS ORDERED: DEXTROSE 40% GEL 15 GM TUBE PO PRN ×2 (19:43)
[2018-11-06] MEDS ORDERED: DEXTROSE 50%-WATER 25 GM/50 ML DISP.SYRIN IV PRN ×2 (19:43)
[2018-11-06] MEDS ORDERED: GLUCAGON,HUMAN RECOMB 1 MG INJ IM PRN (19:43)
[2018-11-06] MEDS: POTASSIUM CHLORIDE 10 MEQ CAPSULE.ER PO SCH (20:29)
[2018-11-06 20:43] LABS: CREATINE KINASE MB 2.72 ng/mL (<4.55)
[2018-11-06 20:49] LABS: TROPONIN I < 0.012 ng/mL
[2018-11-06] MEDS: HEPARIN SOD (PORCINE) 5,000 UNIT/ML 1 ML VIAL SUBCUT SCH (22:30)
[2018-11-06] MEDS: FUROSEMIDE INJ/PF 40 MG/4 ML SDV IV SCH (22:31)
[2018-11-06] MEDS: METOPROLOL TARTRATE 100 MG TABLET PO SCH (22:32)
[2018-11-06] MEDS ORDERED: LORAZEPAM INJ 2 MG/1 ML VIAL ONE (23:58)
[2018-11-07 02:26] LABS: CREATINE KINASE MB 2.27 ng/mL (<4.55); TROPONIN I 0.013 ng/mL
--- NOTE | 2018-11-07 05:08 | PDOC H&P ---
History of Present Illness Admission Date/PCP: 11/06/18 19:36 TEO REYNOSO MD Patient complains of: Swollen scrotum History of Present Illness: CAMPOS ALVAREZ is a 88 year old male with a past medical history of atrial fibrillation, congestive heart failure, left leg cellulitis and dementia with delirium. He presents with generalized truncal edema for an unclear duration. In the emergency room he is also found to have 2+ bilateral lower extremity edema with pleural effusions. He started on IV Lasix and referred to the hospitalist for admission. Patient has been angrily shouting patient with caregivers in the emergency room and is now refusing to interact with MD. The third floor nurse calls to report he almost intentionally broke her arm. He is placed in restraints and received IV Ativan for sedation. Additional history is obtained from the record. Past Medical History Cardiac Medical History: Reports: Atrial Fibrillation - On Eliquis., Congestive Heart Failure, Myocardial Infarction, Hypertension Endocrine Medical History: Reports: Diabetes Mellitus Type 2 Musculoskeltal Medical History: Reports: Arthritis - Osteo Psychiatric Medical History: Reports: Depression Past Surgical History Past Surgical History: Reports: Cardiac Catheterization, Other - Bypass twice Social History Information Source: [facility] Records Lives with: Family Smoking Status: Unknown if Ever Smoked Frequency of Alcohol Use: None Hx Recreational Drug Use: No Drugs: None Hx Prescription Drug Abuse: No - Advance Directive Resuscitation Status: Do Not Resuscitate Family History Family History: Other - Unobtainable Parental Family History Reviewed: No - Unobtainable Children Family History Reviewed: No - Unobtainable Sibling(s) Family History Reviewed.: No - Unobtainable Medication/Allergy Allergies/Adverse Reactions: No Known Allergies Allergy (Verified 09/04/18 14:09) Review of Systems ROS unobtainable: Due to mental status Physical Exam Vital Signs: Temp Pulse Resp BP Pulse Ox 97.5 F 93 22 H 150/92 H 94 11/07/18 03:56 11/07/18 03:56 11/07/18 03:56 11/07/18 03:56 11/07/18 03:56 Intake & Output 11/05/18 11/06/18 11/07/18 11:59 11:59 11:59 Intake Total 0 Output Total 1800 Balance -1800 Weight 95.4 kg General appearance: PRESENT: hard of hearing, mild distress, well-developed, well-nourished. ABSENT: cooperative, disheveled Head exam: PRESENT: atraumatic, normocephalic Eye exam: PRESENT: conjunctiva pink, EOMI, PERRLA. ABSENT: scleral icterus Ear exam: PRESENT: normal external ear exam Mouth exam: PRESENT: moist, tongue midline Neck exam: ABSENT: carotid bruit, JVD, lymphadenopathy, thyromegaly Respiratory exam: PRESENT: crackles, decreased breath sounds, symmetrical. ABSENT: rales, rhonchi, wheezes Cardiovascular exam: PRESENT: RRR. ABSENT: diastolic murmur, rubs, systolic murmur Pulses: PRESENT: normal dorsalis pedis pul Vascular exam: PRESENT: normal capillary refill GI/Abdominal exam: PRESENT: normal bowel sounds, soft. ABSENT: distended, guarding, mass, organolmegaly, rebound, tenderness Rectal exam: PRESENT: deferred Extremities exam: PRESENT: full ROM, +2 edema. ABSENT: calf tenderness, clubbing, pedal edema Neurological exam: PRESENT: alert, altered, CN II-XII grossly intact Psychiatric exam: PRESENT: agitated, unusual affect, other - Combative and hostile Skin exam: PRESENT: dry, erythema - Left leg 1.5 x 1.5 cm erythemic ulcer without exudate and minimal surrounding erythema, intact, warm. ABSENT: cyanosis, rash Results Laboratory Results: 11/06/18 17:30 11/06/18 17:30 11/06/18 11/06/18 11/06/18 17:30 17:30 17:30 WBC 7.9 RBC 4.39 Hgb 12.5 L Hct 38.3 MCV 87 MCH 28.4 MCHC 32.6 RDW 14.2 H Plt Count 169 Seg Neutrophils % 63.9 Sodium 139.1 Potassium 4.5 Chloride 101 Carbon Dioxide 29 Anion Gap 9 BUN 26 H Creatinine 1.09 Est GFR ( Amer) > 60 Glucose 132 H Calcium 9.8 Magnesium 2.2 Total Bilirubin 0.8 AST 29 Alkaline Phosphatase 66 Total Protein 6.5 Albumin 3.8 TSH 11/06/18 11/06/18 17:30 20:05 WBC RBC Hgb Hct MCV MCH MCHC RDW Plt Count Seg Neutrophils % Sodium Potassium Chloride Carbon Dioxide Anion Gap BUN Creatinine Est GFR ( Amer) Glucose Calcium Magnesium 1.8 Total Bilirubin AST Alkaline Phosphatase Total Protein Albumin TSH 1.06 11/06/18 11/06/18 11/06/18 17:30 17:30 20:05 Creatine Kinase 63 CK-MB (CK-2) 2.72 Troponin I < 0.012 NT-Pro-B Natriuret Pep 7150 H 11/07/18 11/07/18 01:43 01:43 Creatine Kinase 73 CK-MB (CK-2) 2.27 Troponin I 0.013 NT-Pro-B Natriuret Pep Impressions: Chest X-Ray 11/06/18 16:31 IMPRESSION: Interval development of bilateral pleural effusions and minimal basilar opacities. Assessment and Plan - Diagnosis (1) CHF exacerbation Qualifiers: Heart failure type: combined systolic and diastolic Qualified Code(s): I50.43 - Acute on chronic combined systolic (congestive) and diastolic (congestive) heart failure Is this a current diagnosis for this admission?: Yes Plan: Systolic heart failure exacerbation, complicated by atrial fibrillation and dementia with delirium. Fluid restriction, loop diuretic challenge. Follow-up chemistry (2) Anasarca Is this a current diagnosis for this admission?: Yes Plan: Likely secondary to #1, unremarkable UA and albumin. Trial IV Lasix diuresis. (3) Atrial fibrillation Is this a current diagnosis for this admission?: Yes Plan: Rate controlled continue Lopressor 100 every 12 from 200 every 12 during acute CHF decompensation. (4) Cellulitis Qualifiers: Site of cellulitis: extremity Site of cellulitis of extremity: lower extrem ity Laterality: left Qualified Code(s): L03.116 - Cellulitis of left lower limb Is this a current diagnosis for this admission?: Yes Plan: Trial Bactrim. Follow-up CBC (5) Dementia Is this a current diagnosis for this admission?: Yes Plan: Complicated by severe delirium he is combative requiring physical and pharmacol ogical restraints. Strongly suggest follow-up with family for short-term goals given advanced dementia with multiple comorbidities and polypharmacy. - Time Time Spent with patient: 35 or more minutes - Inpatient Certification Medical Necessity: Need Close Monitoring Due to Risk of Patient Decompensation
[2018-11-07] MEDS: HEPARIN SOD (PORCINE) 5,000 UNIT/ML 1 ML VIAL SUBCUT SCH ×2 (05:15→15:09)
[2018-11-07] MEDS ORDERED: SULFAMETHOXAZOLE/TRIMETHOPRIM 480 MG in DEXTROSE 5%-WATER 1000 ML 750 ML IV SCH ×2 (06:00→09:00)
[2018-11-07] MEDS ORDERED: SULFAMETHOX/TRIMETH 800-160 MG/10 ML VIAL IV ONE (06:36)
[2018-11-07 08:21] LABS: ABSOLUTE EOSINOPHILS # (AUTO) 0.1 10^3/uL (0.0-0.6); ABSOLUTE LYMPHOCYTES (AUTO) 1.4 10^3/uL (0.5-4.7); ABSOLUTE NEUT (AUTO) 6.5 10^3/uL (1.7-8.2); BASOPHILS % (AUTO) 0.5 % (0-2); EOSINOPHILS % (AUTO) 0.9 % (0-6); HEMATOCRIT 38.3 % (37.9-51.0); HEMOGLOBIN 12.4 g/dL (13.5-17.0); LYMPHOCYTES % (AUTO) 15.6 % (13-45); MEAN CORPUSCULAR HEMOGLOBIN 28.4 pg (27.0-33.4); MEAN CORPUSCULAR HGB CONC 32.5 g/dL (32.0-36.0); MEAN CORPUSCULAR VOLUME 88 fl (80-97); MONOCYTES % (AUTO) 11.1 % (3-13); PLATELET COUNT 155 10^3/uL (150-450); RED BLOOD COUNT 4.37 10^6/uL (4.35-5.55); RED CELL DISTRIBUTION WIDTH 14.3 % (11.5-14.0); SEGMENTED NEUTROPHILS % (AUTO) 71.9 % (42-78); TOTAL CELLS COUNTED % (AUTO) 100 %
[2018-11-07 08:45] LABS: ANION GAP 9 (5-19); BLOOD UREA NITROGEN 21 mg/dL (7-20); CALCIUM 9.4 mg/dL (8.4-10.2); CARBON DIOXIDE 30 mmol/L (22-30); CHLORIDE 101 mmol/L (98-107); CREATINE KINASE 71 U/L (55-170); GLUCOSE 151 mg/dL (75-110); POTASSIUM 3.8 mmol/L (3.6-5.0)
[2018-11-07] MEDS: INSULIN LISPRO 100 UNIT/ML 3 ML VIAL SUBCUT SCH ×3 (08:51→16:58)
[2018-11-07 08:56] LABS: TROPONIN I < 0.012 ng/mL
[2018-11-07] MEDS: POTASSIUM CHLORIDE 10 MEQ CAPSULE.ER PO SCH ×3 (09:02→22:01)
[2018-11-07] MEDS: ASPIRIN 81 MG TABLET, ENT COATED PO SCH ×2 (09:06→09:17)
[2018-11-07] MEDS: METOPROLOL TARTRATE 100 MG TABLET PO SCH ×4 (09:06→22:02)
[2018-11-07] MEDS: FUROSEMIDE INJ/PF 40 MG/4 ML SDV IV SCH ×2 (09:06→22:02)
--- NOTE | 2018-11-07 09:16 | EKG REPORT ---
SEVERITY:- ABNORMAL ECG - ATRIAL FIBRILLATION, V-RATE 75-118 : Confirmed by: Florin Elizalde 07-Nov-2018 09:16:17
[2018-11-07] MEDS ORDERED: IPRATROPIUM/ALBUTEROL 0.5-2.5 MG/3 ML AMPUL NEB PRN (10:52)
[2018-11-07] MEDS ORDERED: CEFAZOLIN 1 GM/D5W RTU 1 GM/50 ML RTUPB IV SCH ×2 (12:00)
[2018-11-07] MEDS: DIVALPROEX SODIUM 125 MG CAP.SPRINK PO SCH ×2 (12:20→17:01)
[2018-11-07] MEDS: CEFAZOLIN SODIUM 1 GM in DEXTROSE 5%-WATER 50 ML IV SCH ×2 (12:20→17:01)
--- NOTE | 2018-11-07 16:58 | PDOC PROGRESS REPORT ---
Subjective Progress Note for:: 11/07/18 Reason For Visit: ANASARCA, DEMENTIA AFIB HEART FAILURE Physical Exam Vital Signs: Temp Pulse Resp BP Pulse Ox 97.2 F 87 18 128/84 H 94 11/07/18 09:04 11/07/18 14:00 11/07/18 12:08 11/07/18 09:04 11/07/18 12:08 Intake & Output 11/06/18 11/07/18 11/08/18 06:59 06:59 06:59 Intake Total 0 530 Output Total 2400 900 Balance -2400 -370 Weight 95.7 kg General appearance: PRESENT: no acute distress, well-developed, well-nourished - overwight Head exam: PRESENT: atraumatic, normocephalic Eye exam: PRESENT: conjunctiva pink, EOMI, PERRLA. ABSENT: scleral icterus Ear exam: PRESENT: normal external ear exam Mouth exam: PRESENT: moist, tongue midline Teeth exam: PRESENT: poor dentation Neck exam: ABSENT: carotid bruit, JVD, lymphadenopathy, thyromegaly Respiratory exam: PRESENT: crackles - bibasilar, symmetrical, unlabored. ABSENT: rales, rhonchi, wheezes Cardiovascular exam: PRESENT: RRR, +S1, +S2. ABSENT: diastolic murmur, rubs, systolic murmur Pulses: PRESENT: normal dorsalis pedis pul Vascular exam: PRESENT: normal capillary refill GI/Abdominal exam: PRESENT: normal bowel sounds, soft. ABSENT: distended, guarding, mass, organolmegaly, rebound, tenderness Rectal exam: PRESENT: deferred Extremities exam: PRESENT: full ROM, pedal edema - +2. ABSENT: calf tenderness, clubbing Neurological exam: PRESENT: CN II-XII grossly intact, other - Arousable; quickly falls back to sleep. Disoriented x4. Oriented to self only at baseline.. ABSENT: motor sensory deficit Psychiatric exam: ABSENT: homicidal ideation, suicidal ideation Skin exam: PRESENT: dry, erythema - Left leg 1.5 x 1.5 cm erythemic ulcer without exudate and minimal surrounding erythema, warm. ABSENT: cyanosis, rash Results Laboratory Results: 11/07/18 08:10 11/07/18 08:10 11/06/18 11/06/18 11/06/18 17:30 17:30 17:30 WBC 7.9 RBC 4.39 Hgb 12.5 L Hct 38.3 MCV 87 MCH 28.4 MCHC 32.6 RDW 14.2 H Plt Count 169 Seg Neutrophils % 63.9 Sodium 139.1 Potassium 4.5 Chloride 101 Carbon Dioxide 29 Anion Gap 9 BUN 26 H Creatinine 1.09 Est GFR ( Amer) > 60 Glucose 132 H Calcium 9.8 Magnesium 2.2 Total Bilirubin 0.8 AST 29 Alkaline Phosphatase 66 Total Protein 6.5 Albumin 3.8 TSH 11/06/18 11/06/18 11/07/18 17:30 20:05 08:10 WBC 9.0 RBC 4.37 Hgb 12.4 L Hct 38.3 MCV 88 MCH 28.4 MCHC 32.5 RDW 14.3 H Plt Count 155 Seg Neutrophils % 71.9 Sodium Potassium Chloride Carbon Dioxide Anion Gap BUN Creatinine Est GFR ( Amer) Glucose Calcium Magnesium 1.8 Total Bilirubin AST Alkaline Phosphatase Total Protein Albumin TSH 1.06 11/07/18 08:10 WBC RBC Hgb Hct MCV MCH MCHC RDW Plt Count Seg Neutrophils % Sodium 140.2 Potassium 3.8 Chloride 101 Carbon Dioxide 30 Anion Gap 9 BUN 21 H Creatinine 0.94 Est GFR ( Amer) > 60 Glucose 151 H Calcium 9.4 Magnesium Total Bilirubin AST Alkaline Phosphatase Total Protein Albumin TSH 11/06/18 11/06/18 11/06/18 17:30 17:30 20:05 Creatine Kinase 63 CK-MB (CK-2) 2.72 Troponin I < 0.012 NT-Pro-B Natriuret Pep 7150 H 11/07/18 11/07/18 11/07/18 01:43 01:43 08:10 Creatine Kinase 73 71 CK-MB (CK-2) 2.27 Troponin I 0.013 NT-Pro-B Natriuret Pep 11/07/18 08:10 Creatine Kinase CK-MB (CK-2) 2.40 Troponin I < 0.012 NT-Pro-B Natriuret Pep Impressions: Chest X-Ray 11/06/18 16:31 IMPRESSION: Interval development of bilateral pleural effusions and minimal basilar opacities. Assessment and Plan - Diagnosis (1) CHF exacerbation Qualifiers: Heart failure type: combined systolic and diastolic Qualified Code(s): I50.43 - Acute on chronic combined systolic (congestive) and diastolic (congestive) heart failure Is this a current diagnosis for this admission?: Yes Plan: Acute on chronic Systolic heart failure exacerbation Complicated by atrial fibrillation and dementia with delirium. Echocardiogram July 2018 demonstrated LVEF 4045% with moderately reduced ventricular systolic function, moderate global hypokinesis of the left ventricle, and mild pulmonary hypertension. Patient is [place] [facility]. Continue home dose metoprolol, isosorbide, Eliquis and aspirin. IV furosemide 40 mg twice daily. Daily weights, strict I&O's. (2) Anasarca Is this a current diagnosis for this admission?: Yes Plan: Likely secondary to #1 Albumin 3.8. Continue IV Lasix for diuresis. (3) Atrial fibrillation Is this a current diagnosis for this admission?: Yes Plan: Rate controlled on home dose metoprolol. Continue home dose Eliquis. Continue to monitor on continuous cardiac telemetry. (4) Cellulitis Qualifiers: Site of cellulitis: extremity Site of cellulitis of extremity: lower extremity Laterality: left Qualified Code(s): L03.116 - Cellulitis of left lower limb Is this a current diagnosis for this admission?: Yes Plan: Initial plan to trial IV Bactrim (secondary to patient's delirium and refusal of numerous medications), however, this would result in nearly 3L of IV fluids related to antibiotic alone in patient with systolic heart failure exacerbation. Therefore, IV Bactrim is discontinued. Patient has no prior history of MRSA. Trial IV Ancef. (400 mL's IV fluids daily). (5) Dementia Qualifiers: Dementia type: vascular dementia Is this a current diagnosis for this admission?: Yes Plan: Recent with advanced/end-stage dementia per family report. Although the patient lives alone; he is monitored 24 hours daily utilizing security cameras and each remove his home. He no longer drives, cannot prepare his own meals, or manage his own finances. Family members report that he frequently is disoriented to his location; becomes lost in his own home, hallucinates, and rearranges furniture. He frequently does not recognize family members and can become easily agitated. Family members have noticed a significant decrease in p.o. intake over the previous 3 weeks. They report that the patient must be prompted to eat otherwise meals will go unnoticed. Complicated by severe delirium he is combative requiring physical and pharmacological restraints. Supportive care. Fall precautions. Depakote 250 mg twice daily. - Time Time Spent with patient: 15-24 minutes Medications reviewed and adjusted accordingly: Yes Anticipated discharge: SNF Within: within 72 hours - Inpatient Certification Based on my medical assessment, after consideration of the patient's comorbidities, presenting symptoms, or acuity I expect that the services needed warrant INPATIENT care.: Yes I certify that my determination is in accordance with my understanding of Medicare's requirements for reasonable and necessary INPATIENT services [42 CFR 412.3e].: Yes Medical Necessity: Need Close Monitoring Due to Risk of Patient Decompensation, Need For IV Fluids, Need for IV Antibiotics
--- NOTE | 2018-11-07 17:05 | ADVANCED CARE ---
- Diagnosis (1) CHF exacerbation Diagnosis Current: Yes (2) Anasarca Diagnosis Current: Yes (3) Atrial fibrillation Diagnosis Current: Yes (4) Cellulitis Diagnosis Current: Yes (5) Dementia Diagnosis Current: Yes Attendance: The patient's daughter, Valorie Gardner, and her . Resuscitation Status: Do Not Resuscitate Discussion: Long discussion was had regarding the patient's chronic medical conditions and current acute problems. We discussed his baseline cardiac function being poor with an LVEF of 40 to 45% as well as his advanced dementia approaching end-stage disease; patient is no longer capable of taking care of himself and frequently becomes lost in his own home and forgets to eat. Patient's daughter confirms that she is the POA; this to be shipped can be reached at [phone]. She confirms the patient's DNR status. We discussed future goals of care; she reports that the patient would want minimal interventions and as indicated he is ready to pass away to join his (he is earlier this year). She reports that she and the family have had a few discussions regarding potential hospice services. They were provided the MOST form for review. Patient states that she would like to take the form home to review with her brother and will return it shortly. At this time, she asks that we continue the current medical therapy but do not attempt any more aggressive interventions. The patient would not want to be upgraded to the ICU, received pressor support, receive artificial nutrition, have bedside or surgical procedures done. She does ask that we continued to attempt to manage his current CHF exacerbation and cellulitis. Current goal is for the patient to become well enough to be eligible for discharge to [facility] as a long-term resident. Care Planning Goals: Continue current medical management; no additional aggressive interventions. Document(s) Completed: MOST form provided for review. Time Spent: 45
[2018-11-07] MEDS: APIXABAN 2.5 MG TABLET PO SCH (17:09)
[2018-11-08] MEDS: CEFAZOLIN SODIUM 1 GM in DEXTROSE 5%-WATER 50 ML IV SCH ×4 (00:01→18:10)
[2018-11-08 03:22] LABS: APPEARANCE,URINE SLIGHTLY-CLOUDY; BILIRUBIN,URINE NEGATIVE (NEGATIVE); COLOR,URINE YELLOW; GLUCOSE, URINE 50 mg/dL (NEGATIVE); KETONES,URINE TRACE mg/dL (NEGATIVE); LEUKOCYTE ESTERASE,URINE MODERATE (NEGATIVE); NITRITE,URINE NEGATIVE (NEGATIVE); PROTEIN,URINE NEGATIVE (NEGATIVE); URINE SPECIFIC GRAVITY 1.012; UROBILINOGEN,URINE NEGATIVE mg/dL (<2.0)
[2018-11-08 05:18] LABS: HEMATOCRIT 40.3 % (37.9-51.0); HEMOGLOBIN 13.3 g/dL (13.5-17.0); MEAN CORPUSCULAR HEMOGLOBIN 28.7 pg (27.0-33.4); MEAN CORPUSCULAR HGB CONC 33.1 g/dL (32.0-36.0); MEAN CORPUSCULAR VOLUME 87 fl (80-97); PLATELET COUNT 150 10^3/uL (150-450); RED BLOOD COUNT 4.65 10^6/uL (4.35-5.55); RED CELL DISTRIBUTION WIDTH 14.1 % (11.5-14.0); WHITE BLOOD COUNT 9.1 10^3/uL (4.0-10.5)
[2018-11-08 05:36] LABS: ANION GAP 11 (5-19); BLOOD UREA NITROGEN 17 mg/dL (7-20); CALCIUM 9.6 mg/dL (8.4-10.2); CARBON DIOXIDE 30 mmol/L (22-30); CHLORIDE 100 mmol/L (98-107); GLUCOSE 169 mg/dL (75-110); POTASSIUM 4.5 mmol/L (3.6-5.0)
[2018-11-08] MEDS: INSULIN LISPRO 100 UNIT/ML 3 ML VIAL SUBCUT SCH ×3 (08:13→17:50)
[2018-11-08] MEDS ORDERED: HYDRALAZINE HCL INJ/PF 20 MG/1 ML SDV IV PRN (08:14)
[2018-11-08] MEDS: FUROSEMIDE INJ/PF 40 MG/4 ML SDV IV SCH (09:34)
[2018-11-08] MEDS: POTASSIUM CHLORIDE 10 MEQ CAPSULE.ER PO SCH (09:36)
[2018-11-08] MEDS: METOPROLOL TARTRATE 100 MG TABLET PO SCH (09:37)
[2018-11-08] MEDS: APIXABAN 2.5 MG TABLET PO SCH ×2 (09:38→17:51)
[2018-11-08] MEDS: ASPIRIN 81 MG TABLET, ENT COATED PO SCH (09:38)
[2018-11-08] MEDS: DIVALPROEX SODIUM 125 MG CAP.SPRINK PO SCH ×2 (09:39→17:51)
[2018-11-08] MEDS: ISOSORBIDE MONONITRATE 20 MG TABLET PO SCH (09:39)
[2018-11-08 13:08] LABS: ARTERIAL BLOOD BASE EXCESS 6.3 mmol/L; ARTERIAL BLOOD FIO2 2L; ARTERIAL BLOOD PCO2 39.8 mmHg (35-45); ARTERIAL BLOOD PO2 60.4 mmHg (80-100); ARTERIAL BLOOD TOTAL CO2 31.2 mmol/L (23-27)
--- NOTE | 2018-11-08 13:14 | RADIOLOGY REPORT (SQ) ---
EXAM DESCRIPTION: CHEST SINGLE VIEW COMPLETED DATE/TIME: 11/08/2018 1:05 pm REASON FOR STUDY: dyspnea COMPARISON: Chest films 11/06/2018, 05/08/2018, 04/24/2018 EXAM PARAMETERS: NUMBER OF VIEWS: One view. TECHNIQUE: Single frontal radiographic view of the chest acquired. RADIATION DOSE: NA LIMITATIONS: None. FINDINGS: LUNGS AND PLEURA: Small right, trace left pleural effusions are present, similar compared to 11/06/2018. There is right and left basilar airspace disease with air bronchograms atelectasis versus pneumonia. No pneumothorax. MEDIASTINUM AND HILAR STRUCTURES: No masses. Contour normal. HEART AND VASCULAR STRUCTURES: Stable cardiomegaly, old sternotomy for CABG BONES: No acute findings. HARDWARE: None in the chest. OTHER: No other significant finding. IMPRESSION: Bilateral pleural effusions similar compared to 11/06/2018. Increasing bibasilar airspace disease atelectasis versus pneumonia TECHNICAL DOCUMENTATION: JOB ID: [id number] [employer]- All Rights Reserved Reading location - IP/workstation name: [email or web address]
--- NOTE | 2018-11-08 17:39 | PDOC PROGRESS REPORT ---
Subjective Progress Note for:: 11/08/18 Subjective:: CAMPOS ALVAREZ is a 88 year old male with a past medical history of atrial fibrillation, congestive heart failure, left leg cellulitis and dementia with delirium who was admitted 11/07/2018 for CHF exacerbation and left lower extremity cellulitis. Patient was seen on morning rounds. He is found resting in bed, comfortably, on supplemental oxygen via NC. He is awake, orientated to self, and socially appropriate. He is conversational, though off topic. He does occasionally make jokes and good-nature teases the nursing staff. Overall, he appears to be comfortable and not noted to be in any acute distress. ROS is limited secondary to mental status. No concerns per nursing. Reason For Visit: ANASARCA, DEMENTIA AFIB HEART FAILURE Physical Exam Vital Signs: Temp Pulse Resp BP Pulse Ox 98.0 F 97 19 117/68 96 11/08/18 15:06 11/08/18 16:51 11/08/18 16:51 11/08/18 15:06 11/08/18 16:51 Intake & Output 11/07/18 11/08/18 11/09/18 06:59 06:59 06:59 Intake Total 0 1030 360 Output Total 2400 2300 600 Balance -2400 -1270 -240 Weight 95.7 kg 93.1 kg General appearance: PRESENT: no acute distress, cooperative, hard of hearing, well-developed, well-nourished - Overweight Head exam: PRESENT: atraumatic, normocephalic Eye exam: PRESENT: conjunctiva pink, EOMI, PERRLA. ABSENT: scleral icterus Ear exam: PRESENT: normal external ear exam Mouth exam: PRESENT: moist, tongue midline Neck exam: ABSENT: carotid bruit, JVD, lymphadenopathy, thyromegaly Respiratory exam: PRESENT: clear to auscultation last, prolonged expiratory phas, symmetrical, unlabored. ABSENT: rales, rhonchi, wheezes Cardiovascular exam: PRESENT: RRR, +S1, +S2. ABSENT: diastolic murmur, rubs, systolic murmur Pulses: PRESENT: normal dorsalis pedis pul Vascular exam: PRESENT: normal capillary refill GI/Abdominal exam: PRESENT: normal bowel sounds, soft. ABSENT: distended, guard ing, mass, organolmegaly, rebound, tenderness Rectal exam: PRESENT: deferred Extremities exam: PRESENT: full ROM. ABSENT: calf tenderness, clubbing, pedal edema Neurological exam: PRESENT: alert, awake, oriented to person, CN II-XII grossly intact, other - Conversational, socially appropriate, pleasantly confused. ABSENT: oriented to place, oriented to time, oriented to situation, motor sensory deficit Psychiatric exam: PRESENT: appropriate affect, normal mood. ABSENT: homicidal ideation, suicidal ideation Skin exam: PRESENT: dry, intact, warm. ABSENT: cyanosis, rash Results Laboratory Results: 11/08/18 04:55 11/08/18 04:55 11/08/18 11/08/18 11/08/18 02:45 04:55 04:55 WBC 9.1 RBC 4.65 Hgb 13.3 L Hct 40.3 MCV 87 MCH 28.7 MCHC 33.1 RDW 14.1 H Plt Count 150 Carbonic Acid HCO3/H2CO3 Ratio ABG pH ABG pCO2 ABG pO2 ABG HCO3 ABG O2 Saturation ABG Base Excess FiO2 Sodium 140.8 Potassium 4.5 Chloride 100 Carbon Dioxide 30 Anion Gap 11 BUN 17 Creatinine 0.91 Est GFR ( Amer) > 60 Glucose 169 H Calcium 9.6 Urine Color YELLOW Urine Appearance SLIGHTLY-CLOUDY Urine pH 5.0 Ur Specific [place] 1.012 Urine Protein NEGATIVE Urine Glucose (UA) 50 H Urine Ketones TRACE H Urine Blood LARGE H Urine Nitrite NEGATIVE Ur Leukocyte Esterase MODERATE H Urine WBC (Auto) 26 Urine RBC (Auto) >182 11/08/18 13:00 WBC RBC Hgb Hct MCV MCH MCHC RDW Plt Count Carbonic Acid 1.20 HCO3/H2CO3 Ratio 25:1 ABG pH 7.50 H ABG pCO2 39.8 ABG pO2 60.4 L ABG HCO3 30.0 H ABG O2 Saturation 93.0 L ABG Base Excess 6.3 FiO2 2L Sodium Potassium Chloride Carbon Dioxide Anion Gap BUN Creatinine Est GFR ( Amer) Glucose Calcium Urine Color Urine Appearance Urine pH Ur Specific [place] Urine Protein Urine Glucose (UA) Urine Ketones Urine Blood Urine Nitrite Ur Leukocyte Esterase Urine WBC (Auto) Urine RBC (Auto) 11/06/18 11/06/18 11/06/18 17:30 17:30 20:05 Creatine Kinase 63 CK-MB (CK-2) 2.72 Troponin I < 0.012 NT-Pro-B Natriuret Pep 7150 H 11/07/18 11/07/18 11/07/18 01:43 01:43 08:10 Creatine Kinase 73 71 CK-MB (CK-2) 2.27 Troponin I 0.013 NT-Pro-B Natriuret Pep 11/07/18 08:10 Creatine Kinase CK-MB (CK-2) 2.40 Troponin I < 0.012 NT-Pro-B Natriuret Pep Impressions: Chest X-Ray 11/08/18 00:00 IMPRESSION: Bilateral pleural effusions similar compared to 11/06/2018. Increasing bibasilar airspace disease atelectasis versus pneumonia Assessment and Plan - Diagnosis (1) CHF exacerbation Qualifiers: Heart failure type: combined systolic and diastolic Qualified Code(s): I50.43 - Acute on chronic combined systolic (congestive) and diastolic (congestive) heart failure Is this a current diagnosis for this admission?: Yes Plan: Acute on chronic Systolic heart failure exacerbation Complicated by atrial fibrillation and dementia with delirium. Echocardiogram July 2018 demonstrated LVEF 4045% with moderately reduced ventricular systolic function, moderate global hypokinesis of the left ventricle, and mild pulmonary hypertension. Patient is admitted to [facility] on continuous cardiac telemetry. Continue home dose metoprolol, isosorbide, Eliquis and aspirin. IV furosemide 20 mg twice daily. Daily weights, strict I&O's. (2) Anasarca Is this a current diagnosis for this admission?: Yes Plan: Likely secondary to #1 Albumin 3.8. Continue IV Lasix for diuresis. (3) Atrial fibrillation Is this a current diagnosis for this admission?: Yes Plan: Rate controlled on home dose metoprolol. Continue home dose Eliquis. Continue to monitor on continuous cardiac telemetry. (4) Cellulitis Qualifiers: Site of cellulitis: extremity Site of cellulitis of extremity: lower extremity Laterality: left Qualified Code(s): L03.116 - Cellulitis of left lower limb Is this a current diagnosis for this admission?: Yes Plan: Significantly improved. Initial plan to trial IV Bactrim (secondary to patient's delirium and refusal of numerous medications), however, this would result in nearly 3L of IV fluids related to antibiotic alone in patient with systolic heart failure exacerbation. Therefore, IV Bactrim is discontinued. Patient has no prior history of MRSA. Trial IV Ancef; day #2. Will discontinue tomorrow if the patient remains afebrile with normal WBC, and clinical improvement. (5) Dementia Qualifiers: Dementia type: vascular dementia Is this a current diagnosis for this admission?: Yes Plan: Recent with advanced/end-stage dementia per family report. Although the patient lives alone; he is monitored 24 hours daily utilizing security cameras and each remove his home. He no longer drives, cannot prepare his own meals, or manage his own finances. Family members report that he frequently is disoriented to his location; becomes lost in his own home, hallucinates, and rearranges furniture. He frequently does not recognize family members and can become easily agitated. Family members have noticed a significant decrease in p.o. intake over the previous 3 weeks. They report that the patient must be prompted to eat otherwise meals will go unnoticed. Complicated by severe delirium he is combative requiring physical and pharmacological restraints. Supportive care. Fall precautions. Depakote 250 mg twice daily. - Time Time Spent with patient: 15-24 minutes Medications reviewed and adjusted accordingly: Yes Anticipated discharge: SNF Within: within 48 hours
[2018-11-08] MEDS: FUROSEMIDE INJ/PF 20 MG/2 ML SDV IV SCH (21:59)
[2018-11-08] MEDS: METOPROLOL SUCCINATE 50 MG TAB.SR.24H PO SCH (22:00)
[2018-11-08] MEDS ORDERED: FUROSEMIDE INJ/PF 40 MG/4 ML SDV IV SCH (22:00)
[2018-11-09] MEDS: CEFAZOLIN SODIUM 1 GM in DEXTROSE 5%-WATER 50 ML IV SCH ×2 (00:10→05:34)
[2018-11-09 05:56] LABS: HEMATOCRIT 37.7 % (37.9-51.0); HEMOGLOBIN 12.4 g/dL (13.5-17.0); MEAN CORPUSCULAR HEMOGLOBIN 28.4 pg (27.0-33.4); MEAN CORPUSCULAR HGB CONC 32.8 g/dL (32.0-36.0); MEAN CORPUSCULAR VOLUME 87 fl (80-97); PLATELET COUNT 137 10^3/uL (150-450); RED BLOOD COUNT 4.36 10^6/uL (4.35-5.55); RED CELL DISTRIBUTION WIDTH 14.5 % (11.5-14.0)
[2018-11-09 06:27] LABS: ANION GAP 9 (5-19); BLOOD UREA NITROGEN 15 mg/dL (7-20); CALCIUM 9.2 mg/dL (8.4-10.2); CARBON DIOXIDE 29 mmol/L (22-30); CHLORIDE 101 mmol/L (98-107); GLUCOSE 145 mg/dL (75-110); POTASSIUM 3.5 mmol/L (3.6-5.0)
[2018-11-09] MEDS: INSULIN LISPRO 100 UNIT/ML 3 ML VIAL SUBCUT SCH ×3 (08:27→17:21)
[2018-11-09] MEDS: FUROSEMIDE INJ/PF 20 MG/2 ML SDV IV SCH (09:28)
[2018-11-09] MEDS: DIVALPROEX SODIUM 125 MG CAP.SPRINK PO SCH ×2 (09:29→17:51)
[2018-11-09] MEDS: APIXABAN 2.5 MG TABLET PO SCH ×2 (09:29→17:50)
[2018-11-09] MEDS: ASPIRIN 81 MG TABLET, ENT COATED PO SCH (09:29)
[2018-11-09] MEDS: ISOSORBIDE MONONITRATE 20 MG TABLET PO SCH (09:29)
[2018-11-09] MEDS: METOPROLOL SUCCINATE 50 MG TAB.SR.24H PO SCH ×2 (09:29→21:32)
[2018-11-09] MEDS ORDERED: BUSPIRONE HCL 10 MG TABLET PO ONE (11:45)
[2018-11-09] MEDS: LOSARTAN POTASSIUM 25 MG TABLET PO SCH (12:17)
--- NOTE | 2018-11-09 13:45 | PDOC PROGRESS REPORT ---
Subjective Progress Note for:: 11/09/18 Subjective:: CAMPOS ALVAREZ is a 88 year old male with a past medical history of atrial fibrillation, congestive heart failure, left leg cellulitis and dementia with delirium who was admitted 11/07/2018 for CHF exacerbation and left lower extremity cellulitis. Patient was seen on morning rounds; no family members present at this time. He is found resting in bed, comfortably, on room air. He is awake, orientated to self, intermittently place, but not year or situation. He is conversational and socially appropriate. Increased alertness today. Overall, he appears to be comfortable and is not noted to be in any acute distress. ROS is limited secondary to mental status. No concerns per nursing. Reason For Visit: ANASARCA, DEMENTIA AFIB HEART FAILURE Physical Exam Vital Signs: Temp Pulse Resp BP Pulse Ox 97.7 F 90 18 134/87 H 97 11/09/18 11:42 11/09/18 11:42 11/09/18 11:42 11/09/18 11:42 11/09/18 11:42 Intake & Output 11/08/18 11/09/18 11/10/18 06:59 06:59 06:59 Intake Total 1030 990 50 Output Total 2300 1950 Balance -1270 -960 50 Weight 93.1 kg 94.4 kg General appearance: PRESENT: no acute distress, hard of hearing, well-developed, well-nourished - overweight Head exam: PRESENT: atraumatic, normocephalic Eye exam: PRESENT: conjunctiva pink, EOMI, PERRLA. ABSENT: scleral icterus Ear exam: PRESENT: normal external ear exam Mouth exam: PRESENT: dry mucosa, tongue midline Neck exam: ABSENT: carotid bruit, JVD, lymphadenopathy, thyromegaly Respiratory exam: PRESENT: clear to auscultation last, symmetrical, unlabored. ABSENT: rales, rhonchi, wheezes Cardiovascular exam: PRESENT: RRR, +S1, +S2. ABSENT: diastolic murmur, rubs, systolic murmur Pulses: PRESENT: normal dorsalis pedis pul Vascular exam: PRESENT: normal capillary refill GI/Abdominal exam: PRESENT: normal bowel sounds, soft. ABSENT: distended, guarding, mass, organolmegaly, rebound, tenderness Rectal exam: PRESENT: deferred Extremities exam: PRESENT: full ROM. ABSENT: calf tenderness, clubbing, pedal edema Neurological exam: PRESENT: alert, awake, oriented to person, oriented to place, CN II-XII grossly intact, other - At baseline mentation. ABSENT: oriented to time, oriented to situation, motor sensory deficit Psychiatric exam: PRESENT: appropriate affect, normal mood. ABSENT: homicidal ideation, suicidal ideation Skin exam: PRESENT: dry, warm. ABSENT: cyanosis, intact - Wound to Lt lower extremity; healing well, erythema has resolved., rash Results Laboratory Results: 11/09/18 05:35 11/09/18 05:35 11/09/18 11/09/18 05:35 05:35 WBC 8.0 RBC 4.36 Hgb 12.4 L Hct 37.7 L MCV 87 MCH 28.4 MCHC 32.8 RDW 14.5 H Plt Count 137 L Sodium 139.3 Potassium 3.5 L Chloride 101 Carbon Dioxide 29 Anion Gap 9 BUN 15 Creatinine 0.79 Est GFR ( Amer) > 60 Glucose 145 H Calcium 9.2 11/06/18 11/06/18 11/06/18 17:30 17:30 20:05 Creatine Kinase 63 CK-MB (CK-2) 2.72 Troponin I < 0.012 NT-Pro-B Natriuret Pep 7150 H 11/07/18 11/07/18 11/07/18 01:43 01:43 08:10 Creatine Kinase 73 71 CK-MB (CK-2) 2.27 Troponin I 0.013 NT-Pro-B Natriuret Pep 11/07/18 08:10 Creatine Kinase CK-MB (CK-2) 2.40 Troponin I < 0.012 NT-Pro-B Natriuret Pep Impressions: Chest X-Ray 11/08/18 00:00 IMPRESSION: Bilateral pleural effusions similar compared to 11/06/2018. Increasing bibasilar airspace disease atelectasis versus pneumonia Assessment and Plan - Diagnosis (1) CHF exacerbation Qualifiers: Heart failure type: combined systolic and diastolic Qualified Code(s): I50.43 - Acute on chronic combined systolic (congestive) and diastolic (congestive) heart failure Is this a current diagnosis for this admission?: Yes Plan: Resolved; now with clear lung sounds, edema has resolved. Acute on chronic Systolic heart failure exacerbation Complicated by atrial fibrillation and dementia with delirium. Echocardiogram July 2018 demonstrated LVEF 40-45% with moderately reduced ventricular systolic function, moderate global hypokinesis of the left ventricle, and mild pulmonary hypertension. Patient is admitted to [facility] on continuous cardiac telemetry. Continue home dose metoprolol, isosorbide, Eliquis and aspirin. Resume home dose furosemide today. Cardiac diet Daily weights, strict I&O's. (2) Anasarca Is this a current diagnosis for this admission?: Yes Plan: Improved. Likely secondary to #1 Albumin 3.8. Optimize cardiac function. Monitor daily weights. Low sodium diet. (3) Atrial fibrillation Is this a current diagnosis for this admission?: Yes Plan: Rate controlled Continue on home dose metoprolol and Eliquis. Continue to monitor on continuous cardiac telemetry. (4) Cellulitis Qualifiers: Site of cellulitis: extremity Site of cellulitis of extremity: lower extremity Laterality: left Qualified Code(s): L03.116 - Cellulitis of left lower limb Is this a current diagnosis for this admission?: Yes Plan: Significantly improved. Initial plan to trial IV Bactrim (secondary to patient's delirium and refusal of numerous medications), however, this would result in nearly 3L of IV fluids related to antibiotic alone in patient with systolic heart failure exacerbation. Therefore, IV Bactrim is discontinued. Patient has no prior history of MRSA. Trial IV Ancef; day #3. Will discontinue as the patient remains afebrile with normal WBC, and clinically improved. (5) Dementia Qualifiers: Dementia type: vascular dementia Is this a current diagnosis for this admission?: Yes Plan: Recent with advanced/end-stage dementia per family report. Although the patient lives alone; he is monitored 24 hours daily utilizing security cameras and each remove his home. He no longer drives, cannot prepare his own meals, or manage his own finances. Family members report that he frequently is disoriented to his location; becomes lost in his own home, hallucinates, and rearranges furniture. He frequently does not recognize family members and can become easily agitated. Family members have noticed a significant decrease in p.o. intake over the previous 3 weeks. They report that the patient must be prompted to eat otherwise meals will go unnoticed. Complicated by severe delirium he is combative requiring physical and pharmacological restraints. Supportive care. Fall precautions. Depakote 250 mg twice daily. Start BuSpar 5 mg qAM, 10 mg qHS. (6) Type 2 diabetes mellitus Qualifiers: Diabetes mellitus mcc insulin use: without slack line yarder use Diabetes mellitus complication status: without complication Qualified Code(s): E11.9 - Type 2 diabetes mellitus without complications Is this a current diagnosis for this admission?: Yes Plan: We will check A1c with a.m. lab work to determine if patient continues to require diabetic medications. Patient of his age and life expectancy can be liberalized to an A1c goal of less than 8.5. Continue on consistent carb diet. Accu-Cheks before meals and at bedtime with Humalog sliding scale coverage. Holding home medication regiment. - Time Time Spent with patient: 15-24 minutes Medications reviewed and adjusted accordingly: Yes Anticipated discharge: SNF Within: within 24 hours
[2018-11-09] MEDS: FUROSEMIDE 40 MG TABLET PO SCH (21:31)
[2018-11-09] MEDS: BUSPIRONE HCL 10 MG TABLET PO SCH (21:31)
[2018-11-10 05:24] LABS: ANION GAP 9 (5-19); BLOOD UREA NITROGEN 14 mg/dL (7-20); CALCIUM 9.3 mg/dL (8.4-10.2); CARBON DIOXIDE 33 mmol/L (22-30); CHLORIDE 98 mmol/L (98-107); GLUCOSE 194 mg/dL (75-110); POTASSIUM 3.5 mmol/L (3.6-5.0)
[2018-11-10] MEDS: INSULIN LISPRO 100 UNIT/ML 3 ML VIAL SUBCUT SCH ×3 (07:56→16:19)
[2018-11-10] MEDS: BUSPIRONE HCL 10 MG TABLET PO SCH ×2 (07:59→21:23)
[2018-11-10 09:17] LABS: HEMATOCRIT 40.9 % (37.9-51.0); HEMOGLOBIN 13.2 g/dL (13.5-17.0); MEAN CORPUSCULAR VOLUME 88 fl (80-97); RED BLOOD COUNT 4.67 10^6/uL (4.35-5.55); WHITE BLOOD COUNT 9.9 10^3/uL (4.0-10.5)
[2018-11-10 09:18] LABS: MEAN CORPUSCULAR HEMOGLOBIN 28.3 pg (27.0-33.4); MEAN CORPUSCULAR HGB CONC 32.3 g/dL (32.0-36.0); PLATELET COUNT 158 10^3/uL (150-450); RED CELL DISTRIBUTION WIDTH 14.6 % (11.5-14.0)
[2018-11-10] MEDS ORDERED: TUBERCULIN,PURIF.PROT.DERIV. 5 TU/0.1 ML TEST 1 ML VIAL ID ONE (10:30)
[2018-11-10] MEDS: POTASSIUM CHLORIDE 10 MEQ CAPSULE.ER PO SCH (10:44)
[2018-11-10] MEDS: ASPIRIN 81 MG TABLET, ENT COATED PO SCH (10:44)
[2018-11-10] MEDS: LOSARTAN POTASSIUM 25 MG TABLET PO SCH (10:44)
[2018-11-10] MEDS: METOPROLOL SUCCINATE 50 MG TAB.SR.24H PO SCH ×2 (10:44→21:23)
[2018-11-10] MEDS: FUROSEMIDE 40 MG TABLET PO SCH ×2 (10:45→21:23)
[2018-11-10] MEDS: DIVALPROEX SODIUM 125 MG CAP.SPRINK PO SCH ×2 (10:45→17:47)
[2018-11-10] MEDS: ISOSORBIDE MONONITRATE 20 MG TABLET PO SCH (10:45)
[2018-11-10] MEDS: APIXABAN 2.5 MG TABLET PO SCH ×2 (10:45→17:47)
--- NOTE | 2018-11-10 14:09 | PDOC PROGRESS REPORT ---
Subjective Progress Note for:: 11/10/18 Subjective:: CAMPOS ALVAREZ is a 88 year old male with a past medical history of atrial fibrillation, congestive heart failure, left leg cellulitis and dementia with delirium who was admitted 11/07/2018 for CHF exacerbation and left lower extremity cellulitis. Patient was seen on morning rounds; no family members present at this time. He is found resting in the recliner, comfortably, on room air. He is awake, orientated to self, intermittently place, but not year or situation. He is conversational and socially appropriate. Overall, he appears to be comfortable and is not noted to be in any acute distress. ROS is limited secondary to mental status; he denies all complaints. Nursing reports patient is sleeping very little at night; requesting medication. Reason For Visit: ANASARCA, DEMENTIA AFIB HEART FAILURE Physical Exam Vital Signs: Temp Pulse Resp BP Pulse Ox 97.3 F 111 H 18 142/83 H 97 11/10/18 07:34 11/10/18 07:34 11/10/18 07:34 11/10/18 07:34 11/10/18 07:34 Intake & Output 11/09/18 11/10/18 11/11/18 06:59 06:59 06:59 Intake Total 990 1030 Output Total 1950 2000 Balance -960 -970 Weight 94.4 kg 93.8 kg General appearance: PRESENT: no acute distress, cooperative, hard of hearing, well-developed, well-nourished Head exam: PRESENT: atraumatic, normocephalic Eye exam: PRESENT: conjunctiva pink, EOMI, PERRLA. ABSENT: scleral icterus Ear exam: PRESENT: normal external ear exam Mouth exam: PRESENT: moist, tongue midline Teeth exam: PRESENT: poor dentation Neck exam: ABSENT: carotid bruit, JVD, lymphadenopathy, thyromegaly Respiratory exam: PRESENT: clear to auscultation last, symmetrical, unlabored. ABSENT: rales, rhonchi, wheezes Cardiovascular exam: PRESENT: irregular rhythm, +S1, +S2. ABSENT: diastolic murmur, rubs, systolic murmur Pulses: PRESENT: normal dorsalis pedis pul Vascular exam: PRESENT: normal capillary refill GI/Abdominal exam: PRESENT: normal bowel sounds, soft. ABSENT: distended, guarding, mass, organolmegaly, rebound, tenderness Rectal exam: PRESENT: deferred Extremities exam: PRESENT: full ROM. ABSENT: calf tenderness, clubbing, pedal edema Musculoskeletal exam: PRESENT: ambulatory Neurological exam: PRESENT: alert, awake, oriented to person, oriented to place - intermittently, CN II-XII grossly intact, other - pleasantly confused. ABSENT: oriented to time, oriented to situation, motor sensory deficit Psychiatric exam: PRESENT: appropriate affect, normal mood. ABSENT: homicidal ideation, suicidal ideation Skin exam: PRESENT: dry, warm, other - 1.5 cm round wound to LLE w/ serous weaping; significantly improved. Erythema and edema have resolved.. ABSENT: cyanosis, erythema, intact, rash Results Laboratory Results: 11/10/18 07:29 11/10/18 04:17 11/10/18 11/10/18 11/10/18 04:17 04:17 07:29 WBC Cancelled 9.9 RBC Cancelled 4.67 Hgb Cancelled 13.2 L Hct Cancelled 40.9 MCV Cancelled 88 MCH Cancelled 28.3 MCHC Cancelled 32.3 RDW Cancelled 14.6 H Plt Count Cancelled 158 Sodium 139.6 Potassium 3.5 L Chloride 98 Carbon Dioxide 33 H Anion Gap 9 BUN 14 Creatinine 0.76 Est GFR ( Amer) > 60 Glucose 194 H Calcium 9.3 11/06/18 11/06/18 11/06/18 17:30 17:30 20:05 Creatine Kinase 63 CK-MB (CK-2) 2.72 Troponin I < 0.012 NT-Pro-B Natriuret Pep 7150 H 11/07/18 11/07/18 11/07/18 01:43 01:43 08:10 Creatine Kinase 73 71 CK-MB (CK-2) 2.27 Troponin I 0.013 NT-Pro-B Natriuret Pep 11/07/18 08:10 Creatine Kinase CK-MB (CK-2) 2.40 Troponin I < 0.012 NT-Pro-B Natriuret Pep Impressions: Chest X-Ray 11/08/18 00:00 IMPRESSION: Bilateral pleural effusions similar compared to 11/06/2018. Increasing bibasilar airspace disease atelectasis versus pneumonia Assessment and Plan - Diagnosis (1) CHF exacerbation Qualifiers: Heart failure type: combined systolic and diastolic Qualified Code(s): I50.43 - Acute on chronic combined systolic (congestive) and diastolic (congestive) heart failure Is this a current diagnosis for this admission?: Yes Plan: Resolved; now with clear lung sounds, edema has resolved. Wt down ~9 kg. Acute on chronic Systolic heart failure exacerbation Complicated by atrial fibrillation and dementia with delirium. Echocardiogram July 2018 demonstrated LVEF 40-45% with moderately reduced ventricular systolic function, moderate global hypokinesis of the left ventricle, and mild pulmonary hypertension. Patient is admitted to [facility] on continuous cardiac telemetry. Continue home dose metoprolol, isosorbide, Eliquis and aspirin. Continue home dose furosemide today. Cardiac diet Daily weights, strict I&O's. (2) Anasarca Is this a current diagnosis for this admission?: Yes Plan: Improved. Likely secondary to #1 Albumin 3.8. Optimize cardiac function. Monitor daily weights. Low sodium diet. (3) Atrial fibrillation Is this a current diagnosis for this admission?: Yes Plan: Rate controlled Continue on home dose metoprolol and Eliquis. Continue to monitor on continuous cardiac telemetry. (4) Cellulitis Qualifiers: Site of cellulitis: extremity Site of cellulitis of extremity: lower extremity Laterality: left Qualified Code(s): L03.116 - Cellulitis of left lower limb Is this a current diagnosis for this admission?: Yes Plan: Resolved; exacerbated by CHF exacerbation/edema Initial plan to trial IV Bactrim (secondary to patient's delirium and refusal of numerous medications), however, this would result in nearly 3L of IV fluids related to antibiotic alone in patient with systolic heart failure exacerbation. Therefore, IV Bactrim is discontinued. Patient has no prior history of MRSA. Finished course of antibiotic therapy. (5) Dementia Qualifiers: Dementia type: vascular dementia Is this a current diagnosis for this admission?: Yes Plan: Recent with advanced/end-stage dementia per family report. Although the patient lives alone; he is monitored 24 hours daily utilizing security cameras and each remove his home. He no longer drives, cannot prepare his own meals, or manage his own finances. Family members report that he frequently is disoriented to his location; becomes lost in his own home, hallucinates, and rearranges furniture. He frequently does not recognize family members and can become easily agitated. Family members have noticed a significant decrease in p.o. intake over the previous 3 weeks. They report that the patient must be prompted to eat otherwise meals will go unnoticed. Complicated by severe delirium he is combative requiring physical and pharmacological restraints. Supportive care. Fall precautions. Depakote 250 mg twice daily. Start BuSpar 5 mg qAM, 10 mg qHS. (6) Type 2 diabetes mellitus Qualifiers: Diabetes mellitus manager terminal insulin use: without manager terminal use Diabetes mellitus complication status: without complication Qualified Code(s): E11.9 - Type 2 diabetes mellitus without complications Is this a current diagnosis for this admission?: Yes Plan: A1C 8.3% Patient of his age and life expectancy can be liberalized to an A1c goal of less than 8.5. Continue on consistent carb diet. Accu-Cheks before meals and at bedtime with Humalog sliding scale coverage. Holding home medication regiment; recommend resuming on discharge. (7) Difficulty sleeping Is this a current diagnosis for this admission?: Yes Plan: Day/Night cues in patient w/ dementia. [place] of Trazadone 50 mg qHS. - Time Time Spent with patient: 15-24 minutes Medications reviewed and adjusted accordingly: Yes Anticipated discharge: SNF Within: when bed available
[2018-11-10] MEDS: TRAZODONE HCL 50 MG TABLET PO SCH (21:23)
[2018-11-10] MEDS ORDERED: LORAZEPAM INJ 2 MG/1 ML VIAL ONE (21:42)
[2018-11-10] MEDS ORDERED: LORAZEPAM INJ 2 MG/1 ML VIAL IV ONE (22:00)
[2018-11-11] MEDS: INSULIN LISPRO 100 UNIT/ML 3 ML VIAL SUBCUT SCH ×3 (08:03→16:31)
[2018-11-11] MEDS ORDERED: DIVALPROEX SODIUM 125 MG CAP.SPRINK PO SCH (10:00)
[2018-11-11] MEDS ORDERED: DIVALPROEX SODIUM 250 MG TABLET.DR PO SCH (10:00)
[2018-11-11] MEDS: BUSPIRONE HCL 10 MG TABLET PO SCH ×2 (10:02→23:00)
[2018-11-11] MEDS: APIXABAN 2.5 MG TABLET PO SCH ×2 (10:02→17:01)
[2018-11-11] MEDS: LOSARTAN POTASSIUM 25 MG TABLET PO SCH (10:02)
[2018-11-11] MEDS: ASPIRIN 81 MG TABLET, ENT COATED PO SCH (10:02)
[2018-11-11] MEDS: POTASSIUM CHLORIDE 10 MEQ CAPSULE.ER PO SCH (10:03)
[2018-11-11] MEDS: METOPROLOL SUCCINATE 50 MG TAB.SR.24H PO SCH ×2 (10:03→23:01)
[2018-11-11] MEDS: ISOSORBIDE MONONITRATE 20 MG TABLET PO SCH (10:03)
[2018-11-11] MEDS: FUROSEMIDE 40 MG TABLET PO SCH ×2 (10:03→23:00)
[2018-11-11] MEDS ORDERED: QUETIAPINE FUMARATE 25 MG TABLET PO PRN (17:20)
--- NOTE | 2018-11-11 17:29 | PDOC PROGRESS REPORT ---
Subjective Progress Note for:: 11/11/18 Subjective:: CAMPOS ALVAREZ is a 88 year old male with a past medical history of atrial fibrillation, congestive heart failure, left leg cellulitis and dementia with delirium who was admitted 11/07/2018 for CHF exacerbation and left lower extremity cellulitis. Patient was seen on morning rounds; no family members present at this time. He is found resting in the bed, comfortably, on room air. He is sleeping soundly and does not wake when I say his name, though he does mumble about his blanket in his sleep. The patient did become agitated overnight and required IV Ativan. This is the likely cause of his sedation this morning. ROS is limited secondary to mental status. He appears to be comfortable and not noted to be in any acute distress at this time. No concerns per nursing at this time. Reason For Visit: ANASARCA, DEMENTIA AFIB HEART FAILURE Physical Exam Vital Signs: Temp Pulse Resp BP Pulse Ox 97.5 F 91 16 145/91 H 100 11/11/18 12:03 11/11/18 14:00 11/11/18 12:03 11/11/18 12:03 11/11/18 12:03 Intake & Output 11/10/18 11/11/18 11/12/18 06:59 06:59 06:59 Intake Total 1030 679 Output Total 2000 560 200 Balance -970 119 -200 Weight 93.8 kg 90.3 kg General appearance: PRESENT: no acute distress, hard of hearing, well-developed, well-nourished - Overweight Head exam: PRESENT: atraumatic, normocephalic Eye exam: PRESENT: conjunctiva pink, EOMI, PERRLA. ABSENT: scleral icterus Mouth exam: PRESENT: moist, tongue midline Teeth exam: PRESENT: poor dentation Neck exam: PRESENT: JVD. ABSENT: carotid bruit, lymphadenopathy, thyromegaly Respiratory exam: PRESENT: clear to auscultation last, symmetrical, unlabored. ABSENT: rales, rhonchi, wheezes Cardiovascular exam: PRESENT: irregular rhythm, +S1, +S2. ABSENT: diastolic murmur, rubs, systolic murmur Pulses: PRESENT: normal dorsalis pedis pul Vascular exam: PRESENT: normal capillary refill GI/Abdominal exam: PRESENT: normal bowel sounds, soft. ABSENT: distended, guarding, mass, organolmegaly, rebound, tenderness Rectal exam: PRESENT: deferred Extremities exam: PRESENT: full ROM. ABSENT: calf tenderness, clubbing, pedal edema Neurological exam: PRESENT: CN II-XII grossly intact, other - Sleeping soundly; oriented to person and intermittently to place at baseline.. ABSENT: motor sensory deficit Skin exam: PRESENT: dry, warm, other - 1.5 cm round wound to LLE w/ serous weaping; significantly improved. ABSENT: cyanosis, intact, rash Results Laboratory Results: 11/10/18 07:29 11/10/18 04:17 11/08/18 02:45 Clean Catch Midstream Urine Culture - Final NO GROWTH 2 DAYS 11/06/18 11/06/18 11/06/18 17:30 17:30 20:05 Creatine Kinase 63 CK-MB (CK-2) 2.72 Troponin I < 0.012 NT-Pro-B Natriuret Pep 7150 H 11/07/18 11/07/18 11/07/18 01:43 01:43 08:10 Creatine Kinase 73 71 CK-MB (CK-2) 2.27 Troponin I 0.013 NT-Pro-B Natriuret Pep 11/07/18 08:10 Creatine Kinase CK-MB (CK-2) 2.40 Troponin I < 0.012 NT-Pro-B Natriuret Pep Impressions: Chest X-Ray 11/08/18 00:00 IMPRESSION: Bilateral pleural effusions similar compared to 11/06/2018. Increasing bibasilar airspace disease atelectasis versus pneumonia Assessment and Plan - Diagnosis (1) CHF exacerbation Qualifiers: Heart failure type: combined systolic and diastolic Qualified Code(s): I50.43 - Acute on chronic combined systolic (congestive) and diastolic (congestive) heart failure Is this a current diagnosis for this admission?: Yes Plan: Resolved; now with clear lung sounds, edema has resolved. Wt down ~12 kg. Acute on chronic Systolic heart failure exacerbation Complicated by atrial fibrillation and dementia with delirium. Echocardiogram July 2018 demonstrated LVEF 40-45% with moderately reduced ventricular systolic function, moderate global hypokinesis of the left ventri caden, and mild pulmonary hypertension. Patient is admitted to [facility] on continuous cardiac telemetry. Continue home dose metoprolol, isosorbide, Eliquis and aspirin. Continue home dose furosemide today. Cardiac diet Daily weights, strict I&O's. (2) Anasarca Is this a current diagnosis for this admission?: Yes Plan: Improved. Likely secondary to #1 Albumin 3.8. Optimize cardiac function. Monitor daily weights. Low sodium diet. Registered dietitian is consulted. (3) Atrial fibrillation Qualifiers: Atrial fibrillation type: chronic Qualified Code(s): I48.2 - Chronic atrial fibrillation Is this a current diagnosis for this admission?: Yes Plan: Rate controlled Continue on home dose metoprolol and Eliquis. Continue to monitor on continuous cardiac telemetry. (4) Cellulitis Qualifiers: Site of cellulitis: extremity Site of cellulitis of extremity: lower extremity Laterality: left Qualified Code(s): L03.116 - Cellulitis of left lower limb Is this a current diagnosis for this admission?: Yes Plan: Resolved; exacerbated by CHF exacerbation/edema Initial plan to trial IV Bactrim (secondary to patient's delirium and refusal of numerous medications), however, this would result in nearly 3L of IV fluids related to antibiotic alone in patient with systolic heart failure exacerbation. Therefore, IV Bactrim is discontinued. Patient has no prior history of MRSA. Finished course of antibiotic therapy. (5) Dementia Qualifiers: Dementia type: vascular dementia Is this a current diagnosis for this admission?: Yes Plan: Recent with advanced/end-stage dementia per family report. Although the patient lives alone; he is monitored 24 hours daily utilizing security cameras and each remove his home. He no longer drives, cannot prepare his own meals, or manage his own finances. Family members report that he frequ ently is disoriented to his location; becomes lost in his own home, hallucinates, and rearranges furniture. He frequently does not recognize family members and can become easily agitated. Family members have noticed a significant decrease in p.o. intake over the previous 3 weeks. They report that the patient must be prompted to eat otherwise meals will go unnoticed. Complicated by severe delirium he is combative requiring physical and pharmacological restraints. Supportive care. Fall precautions. Patient did not respond well to nightly trazodone (increased agitation overnight); have discontinued. Start Seroquel 50 mg nightly. Seroquel 25 mg once daily as needed. Continue Depakote 250 mg twice daily. Start BuSpar 5 mg qAM, 10 mg qHS. (6) Type 2 diabetes mellitus Qualifiers: Diabetes mellitus halfway insulin use: without halfway use Diabetes mellitus complication status: without complication Qualified Code(s): E11.9 - Type 2 diabetes mellitus without complications Is this a current diagnosis for this admission?: Yes Plan: A1C 8.3% Patient of his age and life expectancy can be liberalized to an A1c goal of less than 8.5. Continue on consistent carb diet. Accu-Cheks before meals and at bedtime with Humalog sliding scale coverage. Holding home medication regiment; recommend resuming on discharge. (7) Difficulty sleeping Is this a current diagnosis for this admission?: Yes Plan: Day/Night cues in patient w/ dementia. Did not do well w/ Trazadone; increased agitation. [place] of Seroquel 50 mg qHS. - Time Time Spent with patient: 15-24 minutes Medications reviewed and adjusted accordingly: Yes Anticipated discharge: SNF Within: when bed available
[2018-11-11] MEDS ORDERED: QUETIAPINE FUMARATE 25 MG TABLET PO SCH (22:00)
[2018-11-11] MEDS: TRAZODONE HCL 50 MG TABLET PO SCH (23:00)
[2018-11-11] MEDS: DIVALPROEX SODIUM 250 MG TABLET.DR PO SCH (23:00)
[2018-11-12] MEDS: BUSPIRONE HCL 10 MG TABLET PO SCH ×2 (08:55→22:31)
[2018-11-12] MEDS: INSULIN LISPRO 100 UNIT/ML 3 ML VIAL SUBCUT SCH ×3 (08:56→16:51)
[2018-11-12] MEDS ORDERED: INFLUENZA QUAD (6MOS+) 2019-20 VAC 0.5 ML SYR IM ONE (09:16)
[2018-11-12] MEDS: METOPROLOL SUCCINATE 50 MG TAB.SR.24H PO SCH ×2 (11:44→22:30)
[2018-11-12] MEDS: FUROSEMIDE 40 MG TABLET PO SCH ×2 (11:44→22:30)
[2018-11-12] MEDS: ASPIRIN 81 MG TABLET, ENT COATED PO SCH (11:45)
[2018-11-12] MEDS: DIVALPROEX SODIUM 250 MG TABLET.DR PO SCH ×2 (11:45→22:30)
[2018-11-12] MEDS: LOSARTAN POTASSIUM 25 MG TABLET PO SCH (11:45)
[2018-11-12] MEDS: POTASSIUM CHLORIDE 10 MEQ CAPSULE.ER PO SCH (11:45)
[2018-11-12] MEDS: ISOSORBIDE MONONITRATE 20 MG TABLET PO SCH (11:46)
[2018-11-12] MEDS: APIXABAN 2.5 MG TABLET PO SCH ×2 (11:46→17:25)
--- NOTE | 2018-11-12 12:53 | PDOC PROGRESS REPORT ---
Subjective Progress Note for:: 11/12/18 Subjective:: The patient is quite somnolent at this time. Nursing reports that this is fairly new and could be related to recent changes in his medication. Reason For Visit: ANASARCA, DEMENTIA AFIB HEART FAILURE Physical Exam Vital Signs: Temp Pulse Resp BP Pulse Ox 97.5 F 122 H 18 143/88 H 97 11/12/18 12:12 11/12/18 12:12 11/12/18 12:12 11/12/18 12:12 11/12/18 12:12 Intake & Output 11/11/18 11/12/18 11/13/18 06:59 06:59 06:59 Intake Total 679 240 Output Total 560 515 Balance 119 -275 Weight 90.3 kg 87.5 kg General appearance: PRESENT: other - Lethargic Head exam: PRESENT: atraumatic, normocephalic Respiratory exam: PRESENT: tachypnea - Mild, other - Markedly decreased breath sounds right greater than left. ABSENT: clear to auscultation last, rhonchi, whe ezes Cardiovascular exam: PRESENT: irregular rhythm, systolic murmur - Intermittently audible 2/6 GI/Abdominal exam: PRESENT: diminished bowel sounds, soft. ABSENT: distended, tenderness Neurological exam: ABSENT: alert, awake Results Laboratory Results: 11/10/18 07:29 11/10/18 04:17 11/06/18 11/06/18 11/06/18 17:30 17:30 20:05 Creatine Kinase 63 CK-MB (CK-2) 2.72 Troponin I < 0.012 NT-Pro-B Natriuret Pep 7150 H 11/07/18 11/07/18 11/07/18 01:43 01:43 08:10 Creatine Kinase 73 71 CK-MB (CK-2) 2.27 Troponin I 0.013 NT-Pro-B Natriuret Pep 11/07/18 08:10 Creatine Kinase CK-MB (CK-2) 2.40 Troponin I < 0.012 NT-Pro-B Natriuret Pep Impressions: Chest X-Ray 11/08/18 00:00 IMPRESSION: Bilateral pleural effusions similar compared to 11/06/2018. Increasing bibasilar airspace disease atelectasis versus pneumonia Assessment and Plan - Diagnosis (1) CHF exacerbation Qualifiers: Heart failure type: combined systolic and diastolic Qualified Code(s): I50.43 - Acute on chronic combined systolic (congestive) and diastolic (congestive) heart failure Is this a current diagnosis for this admission?: Yes Plan: Resolved; now with clear lung sounds, edema has resolved. Wt down ~12 kg. Acute on chronic Systolic heart failure exacerbation Complicated by atrial fibrillation and dementia with delirium. Echocardiogram July 2018 demonstrated LVEF 40-45% with moderately reduced ventricular systolic function, moderate global hypokinesis of the left ventricle, and mild pulmonary hypertension. Patient is admitted to [facility] on continuous cardiac telemetry. Continue home dose metoprolol, isosorbide, Eliquis and aspirin. Continue home dose furosemide today. Cardiac diet Daily weights, strict I&O's. 11/12/2018-I did increase his furosemide back to 40 mg daily. His somnolence makes it difficult to fully assess. I will repeat a chest x-ray as he had decreased breath sounds at the bases. We will also monitor his intake and output as well as his renal function as he may become alkalotic from diuresis. Consider increasing his losartan or change to Entresto. (2) Anasarca Is this a current diagnosis for this admission?: Yes Plan: Improved. Likely secondary to #1 Albumin 3.8. Optimize cardiac function. Monitor daily weights. Low sodium diet. Registered dietitian is consulted. 11/12/2018-his albumin is in fact in the normal range on admission. We will continue diuresis. Cardiac diet as above. (3) Atrial fibrillation Qualifiers: Atrial fibrillation type: other persistent Qualified Code(s): I48.19 - Other persistent atrial fibrillation Is this a current diagnosis for this admission?: Yes Plan: Rate controlled Continue on home dose metoprolol and Eliquis. Continue to monitor on continuous cardiac telemetry. 11/12/2018-continue metoprolol. Monitor on telemetry. Goal is good rate control with continued anticoagulation. (4) Cellulitis Qualifiers: Site of cellulitis: extremity Site of cellulitis of extremity: lower extremity Laterality: left Qualified Code(s): L03.116 - Cellulitis of left lower limb Is this a current diagnosis for this admission?: Yes Plan: Resolved; exacerbated by CHF exacerbation/edema Initial plan to trial IV Bactrim (secondary to patient's delirium and refusal of numerous medications), however, this would result in nearly 3L of IV fluids related to antibiotic alone in patient with systolic heart failure exacerbation. Therefore, IV Bactrim is discontinued. Patient has no prior history of MRSA. Finished course of antibiotic therapy. 11/12/2018-as above (5) Dementia Qualifiers: Dementia type: vascular dementia Is this a current diagnosis for this admission?: Yes Plan: Recent with advanced/end-stage dementia per family report. Although the patient lives alone; he is monitored 24 hours daily utilizing security cameras and each remove his home. He no longer drives, cannot prepare his own meals, or manage his own finances. Family members report that he frequently is disoriented to his location; becomes lost in his own home, hallucinates, and rearranges furniture. He frequently does not recognize family members and can become easily agitated. Family members have noticed a significant decrease in p.o. intake over the previous 3 weeks. They report that the patient must be prompted to eat otherwise meals will go unnoticed. Complicated by severe delirium he is combative requiring physical and pharmacological restraints. Supportive care. Fall precautions. Patient did not respond well to nightly trazodone (increased agitation overnight); have discontinued. Start Seroquel 50 mg nightly. Seroquel 25 mg once daily as needed. Continue Depakote 250 mg twice daily. Start BuSpar 5 mg qAM, 10 mg qHS. 11/12/2018-it is possible that the new medications are causing his somnolence. Seroquel is the most likely candidate. I will discontinue his Seroquel at this time and monitor. Adjust medications based on clinical response. (6) Type 2 diabetes mellitus Qualifiers: Diabetes mellitus snf insulin use: without emt intermediate use Diabetes mellitus complication status: without complication Qualified Code(s): E11.9 - Type 2 diabetes mellitus without complications Is this a current diagnosis for this admission?: Yes Plan: A1C 8.3% Patient of his age and life expectancy can be liberalized to an A1c goal of less than 8.5. Continue on consistent carb diet. Accu-Cheks before meals and at bedtime with Humalog sliding scale coverage. Holding home medication regiment; recommend resuming on discharge. 11/12/2018-continue current regimen. At this time the patient exhibits good Accu-Chek readings. (7) Difficulty sleeping Is this a current diagnosis for this admission?: Yes Plan: Day/Night cues in patient w/ dementia. Did not do well w/ Trazadone; increased agitation. [place] of Seroquel 50 mg qHS. 11/12/2018-as noted above he is quite somnolent today. This could be due to the addition of multiple medications. We will hold the Seroquel and continue to monitor. - Time Time Spent with patient: 15-24 minutes Medications reviewed and adjusted accordingly: Yes
[2018-11-12 13:16] LABS: ARTERIAL BLOOD BASE EXCESS 10.2 mmol/L; ARTERIAL BLOOD H2CO3 1.45 mmol/L (1.05-1.35); ARTERIAL BLOOD HCO3 35.2 mmol/L (20-24); ARTERIAL BLOOD O2 SATURATION 95.9 % (94-98); ARTERIAL BLOOD PCO2 48.3 mmHg (35-45); ARTERIAL BLOOD PH 7.48 (7.35-7.45); ARTERIAL BLOOD PO2 76.1 mmHg (80-100); ARTERIAL BLOOD TOTAL CO2 36.6 mmol/L (23-27)
[2018-11-12 13:17] LABS: ARTERIAL BLOOD FIO2 3L
[2018-11-12 14:25] LABS: ABSOLUTE EOSINOPHILS # (AUTO) 0.1 10^3/uL (0.0-0.6); ABSOLUTE LYMPHOCYTES (AUTO) 0.8 10^3/uL (0.5-4.7); ABSOLUTE NEUT (AUTO) 5.5 10^3/uL (1.7-8.2); BASOPHILS % (AUTO) 0.4 % (0-2); EOSINOPHILS % (AUTO) 1.4 % (0-6); HEMATOCRIT 35.9 % (37.9-51.0); LYMPHOCYTES % (AUTO) 10.1 % (13-45); MEAN CORPUSCULAR HEMOGLOBIN 28.8 pg (27.0-33.4); MEAN CORPUSCULAR HGB CONC 33.3 g/dL (32.0-36.0); MEAN CORPUSCULAR VOLUME 87 fl (80-97); MONOCYTES % (AUTO) 14.1 % (3-13); PLATELET COUNT 136 10^3/uL (150-450); RED BLOOD COUNT 4.15 10^6/uL (4.35-5.55); RED CELL DISTRIBUTION WIDTH 14.4 % (11.5-14.0); TOTAL CELLS COUNTED % (AUTO) 100 %; WHITE BLOOD COUNT 7.4 10^3/uL (4.0-10.5)
[2018-11-12 14:43] LABS: ANION GAP 7 (5-19); BLOOD UREA NITROGEN 13 mg/dL (7-20); CALCIUM 9.2 mg/dL (8.4-10.2); CARBON DIOXIDE 36 mmol/L (22-30); CHLORIDE 97 mmol/L (98-107); GLUCOSE 176 mg/dL (75-110); POTASSIUM 3.7 mmol/L (3.6-5.0)
--- NOTE | 2018-11-12 14:47 | RADIOLOGY REPORT (SQ) ---
EXAM DESCRIPTION: CHEST SINGLE VIEW COMPLETED DATE/TIME: 11/12/2018 2:29 pm REASON FOR STUDY: dyspnea, pl effusion COMPARISON: 11/08/2018 EXAM PARAMETERS: NUMBER OF VIEWS: One view. TECHNIQUE: Single frontal radiographic view of the chest acquired. RADIATION DOSE: NA LIMITATIONS: None. FINDINGS: LUNGS AND PLEURA: Increased bilateral pleural effusions. Considerable opacification in th e lower lobes. MEDIASTINUM AND HILAR STRUCTURES: No masses. Contour normal. HEART AND VASCULAR STRUCTURES: Cardiomegaly. Cannot exclude mild pulmonary edema. BONES: No acute findings. HARDWARE: Sternotomy wires. OTHER: No other significant finding. IMPRESSION: Cardiomegaly with mild pulmonary edema. Increase bilateral pleural effusions. Airspace disease in the lower lobes, atelectasis versus pneumonia. TECHNICAL DOCUMENTATION: JOB ID: [id number] [employer]- All Rights Reserved Reading location - IP/workstation name: [email or web address]
[2018-11-12] MEDS: TRAZODONE HCL 50 MG TABLET PO SCH (22:31)
[2018-11-13] MEDS ORDERED: LORAZEPAM INJ 2 MG/1 ML VIAL ONE (04:38)
[2018-11-13] MEDS: LORAZEPAM INJ 2 MG/1 ML VIAL IV PRN ×2 (04:45→20:09)
[2018-11-13 05:41] LABS: ABSOLUTE EOSINOPHILS # (AUTO) 0.1 10^3/uL (0.0-0.6); ABSOLUTE NEUT (AUTO) 5.4 10^3/uL (1.7-8.2); BASOPHILS % (AUTO) 0.6 % (0-2); EOSINOPHILS % (AUTO) 1.2 % (0-6); HEMATOCRIT 37.4 % (37.9-51.0); HEMOGLOBIN 12.1 g/dL (13.5-17.0); LYMPHOCYTES % (AUTO) 13.1 % (13-45); MEAN CORPUSCULAR HEMOGLOBIN 27.9 pg (27.0-33.4); MEAN CORPUSCULAR HGB CONC 32.4 g/dL (32.0-36.0); MEAN CORPUSCULAR VOLUME 86 fl (80-97); MONOCYTES % (AUTO) 13.6 % (3-13); PLATELET COUNT 133 10^3/uL (150-450); RED BLOOD COUNT 4.34 10^6/uL (4.35-5.55); RED CELL DISTRIBUTION WIDTH 14.4 % (11.5-14.0); SEGMENTED NEUTROPHILS % (AUTO) 71.5 % (42-78); TOTAL CELLS COUNTED % (AUTO) 100 %; WHITE BLOOD COUNT 7.5 10^3/uL (4.0-10.5)
[2018-11-13 05:51] LABS: ANION GAP 5 (5-19); BLOOD UREA NITROGEN 13 mg/dL (7-20); CALCIUM 9.3 mg/dL (8.4-10.2); CARBON DIOXIDE 38 mmol/L (22-30); CHLORIDE 98 mmol/L (98-107); GLUCOSE 162 mg/dL (75-110); POTASSIUM 3.7 mmol/L (3.6-5.0)
[2018-11-13] MEDS: INSULIN LISPRO 100 UNIT/ML 3 ML VIAL SUBCUT SCH ×3 (07:58→17:35)
[2018-11-13] MEDS: POTASSIUM CHLORIDE 10 MEQ CAPSULE.ER PO SCH (09:49)
[2018-11-13] MEDS: APIXABAN 2.5 MG TABLET PO SCH ×2 (09:49→17:35)
[2018-11-13] MEDS: DIVALPROEX SODIUM 250 MG TABLET.DR PO SCH ×2 (09:49→21:15)
[2018-11-13] MEDS: LOSARTAN POTASSIUM 25 MG TABLET PO SCH (09:49)
[2018-11-13] MEDS: ISOSORBIDE MONONITRATE 20 MG TABLET PO SCH (09:49)
[2018-11-13] MEDS: BUSPIRONE HCL 10 MG TABLET PO SCH ×2 (09:49→21:15)
[2018-11-13] MEDS: ASPIRIN 81 MG TABLET, ENT COATED PO SCH (09:49)
[2018-11-13] MEDS: METOPROLOL SUCCINATE 50 MG TAB.SR.24H PO SCH ×2 (09:50→21:16)
[2018-11-13] MEDS: FUROSEMIDE 40 MG TABLET PO SCH ×2 (09:50→21:15)
--- NOTE | 2018-11-13 12:06 | PDOC PROGRESS REPORT ---
Subjective Progress Note for:: 11/13/18 Subjective:: The patient does not appear to be responding to treatment. He has not taken an much by mouth including medications, food and drink. He has a depressed ejection fraction with worsening pleural effusions. A long discussion was had with the family at bedside. Please see below. Reason For Visit: ANASARCA, DEMENTIA AFIB HEART FAILURE Physical Exam Vital Signs: Temp Pulse Resp BP Pulse Ox 97.6 F 112 H 16 131/96 H 96 11/13/18 07:25 11/13/18 07:25 11/13/18 07:25 11/13/18 07:25 11/13/18 07:25 Intake & Output 11/12/18 11/13/18 11/14/18 06:59 06:59 06:59 Intake Total 240 Output Total 515 Balance -275 Weight 87.5 kg 88.4 kg General appearance: PRESENT: mild distress, well-developed Respiratory exam: PRESENT: decreased breath sounds - At bases, prolonged expiratory phas, symmetrical. ABSENT: rhonchi, wheezes Cardiovascular exam: PRESENT: irregular rhythm GI/Abdominal exam: PRESENT: diminished bowel sounds, soft. ABSENT: tenderness Extremities exam: PRESENT: +2 edema Neurological exam: ABSENT: awake Psychiatric exam: ABSENT: agitated Focused psych exam: ABSENT: restlessness Results Laboratory Results: 11/13/18 05:25 11/13/18 05:25 11/12/18 11/12/18 11/12/18 13:11 13:53 13:53 WBC 7.4 RBC 4.15 L Hgb 12.0 L Hct 35.9 L MCV 87 MCH 28.8 MCHC 33.3 RDW 14.4 H Plt Count 136 L Seg Neutrophils % 74.0 Carbonic Acid 1.45 H HCO3/H2CO3 Ratio 24:1 ABG pH 7.48 H ABG pCO2 48.3 H ABG pO2 76.1 L ABG HCO3 35.2 H ABG O2 Saturation 95.9 ABG Base Excess 10.2 FiO2 3L Sodium 139.5 Potassium 3.7 Chloride 97 L Carbon Dioxide 36 H Anion Gap 7 BUN 13 Creatinine 0.58 Est GFR ( Amer) > 60 Glucose 176 H Calcium 9.2 Magnesium 2.2 11/13/18 11/13/18 05:25 05:25 WBC 7.5 RBC 4.34 L Hgb 12.1 L Hct 37.4 L MCV 86 MCH 27.9 MCHC 32.4 RDW 14.4 H Plt Count 133 L Seg Neutrophils % 71.5 Carbonic Acid HCO3/H2CO3 Ratio ABG pH ABG pCO2 ABG pO2 ABG HCO3 ABG O2 Saturation ABG Base Excess FiO2 Sodium 141.3 Potassium 3.7 Chloride 98 Carbon Dioxide 38 H Anion Gap 5 BUN 13 Creatinine 0.60 Est GFR ( Amer) > 60 Glucose 162 H Calcium 9.3 Magnesium 2.0 11/06/18 11/06/18 11/06/18 17:30 17:30 20:05 Creatine Kinase 63 CK-MB (CK-2) 2.72 Troponin I < 0.012 NT-Pro-B Natriuret Pep 7150 H 11/07/18 11/07/18 11/07/18 01:43 01:43 08:10 Creatine Kinase 73 71 CK-MB (CK-2) 2.27 Troponin I 0.013 NT-Pro-B Natriuret Pep 11/07/18 11/12/18 08:10 13:53 Creatine Kinase CK-MB (CK-2) 2.40 Troponin I < 0.012 NT-Pro-B Natriuret Pep 6550 H Impressions: Chest X-Ray 11/12/18 00:00 IMPRESSION: Cardiomegaly with mild pulmonary edema. Increase bilateral pleural effusions. Airspace disease in the lower lobes, atelectasis versus pneumonia. Assessment and Plan - Diagnosis (1) CHF exacerbation Qualifiers: Heart failure type: combined systolic and diastolic Qualified Code(s): I50.43 - Acute on chronic combined systolic (congestive) and diastolic (congestive) heart failure Is this a current diagnosis for this admission?: Yes (2) Anasarca Is this a current diagnosis for this admission?: Yes (3) Atrial fibrillation Qualifiers: Atrial fibrillation type: other persistent Qualified Code(s): I48.19 - Other persistent atrial fibrillation Is this a current diagnosis for this admission?: Yes (4) Cellulitis Qualifiers: Site of cellulitis: extremity Site of cellulitis of extremity: lower extremity Laterality: left Qualified Code(s): L03.116 - Cellulitis of left lower limb Is this a current diagnosis for this admission?: Yes (5) Dementia Qualifiers: Dementia type: vascular dementia Is this a current diagnosis for this admission?: Yes (6) Type 2 diabetes mellitus Qualifiers: Diabetes mellitus prison insulin use: without prison use Diabetes mellitus complication status: without complication Qualified Code(s): E11.9 - Type 2 diabetes mellitus without complications Is this a current diagnosis for this admission?: Yes (7) Difficulty sleeping Is this a current diagnosis for this admission?: Yes - Plan Summary Summary: I had a long discussion with the family at bedside. Based on his decreased ejection fraction, pulmonary hypertension and worsening effusions despite diuretics I do not feel that the patient will have a meaningful recovery. The patient's daughter states that this is not a quality of life that he would like. We did review the fact that over the last several months he has been getting more more shortness of breath with less and less exertion. We discussed being less aggressive with treatment. I explained hospice versus comfort care. I will have palliative care see the patient. Once the family has had a chance to discuss options they will likely make a decision. I should have a decision tomorrow. His overall prognosis is extremely poor. - Time Time Spent with patient: 25-34 minutes Medications reviewed and adjusted accordingly: Yes
--- NOTE | 2018-11-13 15:58 | ADVANCED CARE ---
- Diagnosis (1) CHF exacerbation Diagnosis Current: Yes (2) Anasarca Diagnosis Current: Yes (3) Atrial fibrillation Diagnosis Current: Yes (4) Cellulitis Diagnosis Current: Yes (5) Dementia Diagnosis Current: Yes (6) Type 2 diabetes mellitus Diagnosis Current: Yes (7) Difficulty sleeping Diagnosis Current: Yes Attendance: The patient, his daughter, [id number], son-in-law and friend. Resuscitation Status: Do Not Resuscitate Discussion: We reviewed the fact that the patient not only is not responding to therapy but appears to be worsening. I presented the family with my impression and this is that the patient is not going to get better despite aggressive intervention. The patient's daughter was very emphatic that this is not a quality of life that her father would want. He believed in quality as opposed to quantity and the quality of his life certainly has been less than satisfactory. We reviewed the differences between hospice and comfort measures. They will work with the [facility] and discharge planning to review the facilities that would be able to accommodate the patient's needs. Care Planning Goals: The family is deciding on further disposition. I will likely be hospice versus comfort measures. Document(s) Completed: None Time Spent: 25 minutes
[2018-11-13] MEDS: TRAZODONE HCL 50 MG TABLET PO SCH (21:15)
[2018-11-14] MEDS: LORAZEPAM INJ 2 MG/1 ML VIAL IV PRN ×3 (00:53→19:53)
[2018-11-14] MEDS ORDERED: HALOPERIDOL LACTATE INJ 5 MG/1 ML VIAL ONE (02:07)
[2018-11-14] MEDS ORDERED: HALOPERIDOL LACTATE INJ 5 MG/1 ML VIAL IV PRN (02:09)
[2018-11-14] MEDS ORDERED: METOPROLOL TARTRATE PF/INJ 5 MG/5 ML SDV IV PRN (03:24)
[2018-11-14] MEDS ORDERED: DILTIAZEM HCL INJ 25 MG/5 ML VIAL IV ONE ×2 (03:30→03:36)
[2018-11-14] MEDS ORDERED: DIGOXIN INJ 0.5 MG/2 ML AMPULE IV ONE (03:30)
--- NOTE | 2018-11-14 03:34 | Progress Note ---
Provider Note Provider Note: Critical care: 11/14/2018 Start time: 2:52 AM Critical care problem: Agitation/hypertension/tachycardia Patient was seen at the request nursing staff due to agitation. Since his family member left the room for the evening he has been severely agitated and seems to be gradually worsening. Additionally with the agitation he has been markedly tachycardic in the 140s and 150s and his blood pressure has been elevated in the 150-160/100-110 range. On examination the patient becomes agitated with the presence of the examiner in the room and more agitated with any stimulation such as noise, talking to him or examining him with a stethoscope. Patient is noted to have atrial fibrillation with a rapid ventricular response on auscultation and also confirmed on the monitor. Chest shows decreased breath sounds at the bilateral bases with minimal fine rales also present. Abdomen is soft bowel sounds are positive and there is no apparent tenderness to palpation although this is difficult to discern. Extremities reveal no clubbing or cyanosis, but demonstrate moderate edema extending well above the knee. Patient has severe presbycusis but further assessment is impossible due to his extreme agitation/anxiety and dementia. Patient was treated with digoxin 0.5 mg IV x1, Cardizem 25 mg IV x1 and on an ongoing basis as needed metoprolol 5 mg IV every 4 hours for heart rate greater than 100. The patient will not cooperate with taking oral medications during the nighttime hours especially in the absence of his family members. A CBC, metabolic profile, magnesium level, digoxin level and cardiac enzymes will be obtained at appropriate intervals for further evaluation. End time: 3:37 AM Total critical care time (face to patient): 23 minutes
[2018-11-14 05:41] LABS: ABSOLUTE LYMPHOCYTES (AUTO) 0.4 10^3/uL (0.5-4.7); ABSOLUTE MONOCYTES (AUTO) 0.6 10^3/uL (0.1-1.4); ABSOLUTE NEUT (AUTO) 4.9 10^3/uL (1.7-8.2); BASOPHILS % (AUTO) 0.3 % (0-2); EOSINOPHILS % (AUTO) 0.1 % (0-6); HEMATOCRIT 40.8 % (37.9-51.0); HEMOGLOBIN 13.3 g/dL (13.5-17.0); LYMPHOCYTES % (AUTO) 6.2 % (13-45); MEAN CORPUSCULAR HEMOGLOBIN 28.2 pg (27.0-33.4); MEAN CORPUSCULAR HGB CONC 32.5 g/dL (32.0-36.0); MEAN CORPUSCULAR VOLUME 87 fl (80-97); MONOCYTES % (AUTO) 9.6 % (3-13); PLATELET COUNT 138 10^3/uL (150-450); RED CELL DISTRIBUTION WIDTH 14.5 % (11.5-14.0); SEGMENTED NEUTROPHILS % (AUTO) 83.8 % (42-78); TOTAL CELLS COUNTED % (AUTO) 100 %; WHITE BLOOD COUNT 5.9 10^3/uL (4.0-10.5)
[2018-11-14 06:10] LABS: BLOOD UREA NITROGEN 17 mg/dL (7-20); GLUCOSE 192 mg/dL (75-110)
[2018-11-14 06:11] LABS: ALBUMIN 3.8 g/dL (3.5-5.0); ALKALINE PHOSPHATASE 64 U/L (38-126); ANION GAP 13 (5-19); ASPARTATE AMINO TRANSFERASE 26 U/L (17-59); BILIRUBIN,DIRECT 0.4 mg/dL (0.0-0.4); BILIRUBIN,TOTAL 1.3 mg/dL (0.2-1.3); CARBON DIOXIDE 32 mmol/L (22-30); CHLORIDE 97 mmol/L (98-107); POTASSIUM 3.7 mmol/L (3.6-5.0); TOTAL PROTEIN 7.3 g/dL (6.3-8.2)
[2018-11-14 06:20] LABS: CREATINE KINASE MB 1.03 ng/mL (<4.55); TROPONIN I 0.014 ng/mL
[2018-11-14 10:41] LABS: CREATINE KINASE MB 1.17 ng/mL (<4.55); TROPONIN I 0.023 ng/mL
[2018-11-14] MEDS: BUSPIRONE HCL 10 MG TABLET PO SCH (13:19)
--- NOTE | 2018-11-14 13:26 | PDOC PROGRESS REPORT ---
Subjective Progress Note for:: 11/14/18 Subjective:: The patient's family is at the bedside. He had an acute episode of rapid ventricular response with his atrial fibrillation. He required additional medications. The family has decided to move to comfort care at this time. Reason For Visit: ANASARCA, DEMENTIA AFIB HEART FAILURE Physical Exam Vital Signs: Temp Pulse Resp BP Pulse Ox 98.1 F 88 24 H 145/97 H 95 11/14/18 03:33 11/14/18 07:00 11/14/18 03:33 11/14/18 03:33 11/14/18 03:33 Intake & Output 11/13/18 11/14/18 11/15/18 06:59 06:59 06:59 Intake Total 200 360 Balance 200 360 Weight 88.4 kg 86.4 kg General appearance: PRESENT: mild distress Respiratory exam: PRESENT: rhonchi, symmetrical, tachypnea. ABSENT: rales, wheezes Cardiovascular exam: PRESENT: irregular rhythm GI/Abdominal exam: PRESENT: diminished bowel sounds, soft. ABSENT: distended, tenderness Musculoskeletal exam: ABSENT: ambulatory Neurological exam: ABSENT: awake Focused psych exam: PRESENT: restlessness Results Laboratory Results: 11/14/18 04:32 11/14/18 04:32 11/14/18 11/14/18 04:32 04:32 WBC 5.9 RBC 4.70 Hgb 13.3 L Hct 40.8 MCV 87 MCH 28.2 MCHC 32.5 RDW 14.5 H Plt Count 138 L Seg Neutrophils % 83.8 H Sodium 142.2 Potassium 3.7 Chloride 97 L Carbon Dioxide 32 H Anion Gap 13 BUN 17 Creatinine 0.61 Est GFR ( Amer) > 60 Glucose 192 H Calcium 10.0 Magnesium 2.2 Total Bilirubin 1.3 AST 26 Alkaline Phosphatase 64 Total Protein 7.3 Albumin 3.8 11/06/18 11/06/18 11/06/18 17:30 17:30 20:05 Creatine Kinase 63 CK-MB (CK-2) 2.72 Troponin I < 0.012 NT-Pro-B Natriuret Pep 7150 H 11/07/18 11/07/18 11/07/18 01:43 01:43 08:10 Creatine Kinase 73 71 CK-MB (CK-2) 2.27 Troponin I 0.013 NT-Pro-B Natriuret Pep 11/07/18 11/12/18 11/14/18 08:10 13:53 04:32 Creatine Kinase 25 L CK-MB (CK-2) 2.40 Troponin I < 0.012 NT-Pro-B Natriuret Pep 6550 H 11/14/18 11/14/18 11/14/18 04:32 09:47 09:47 Creatine Kinase 25 L CK-MB (CK-2) 1.03 1.17 Troponin I 0.014 0.023 NT-Pro-B Natriuret Pep Impressions: Chest X-Ray 11/12/18 00:00 IMPRESSION: Cardiomegaly with mild pulmonary edema. Increase bilateral pleural effusions. Airspace disease in the lower lobes, atelectasis versus pneumonia. Assessment and Plan - Diagnosis (1) CHF exacerbation Qualifiers: Heart failure type: combined systolic and diastolic Qualified Code(s): I50.43 - Acute on chronic combined systolic (congestive) and diastolic ( congestive) heart failure Is this a current diagnosis for this admission?: Yes (2) Anasarca Is this a current diagnosis for this admission?: Yes (3) Atrial fibrillation Qualifiers: Atrial fibrillation type: other persistent Qualified Code(s): I48.19 - Other persistent atrial fibrillation Is this a current diagnosis for this admission?: Yes (4) Cellulitis Qualifiers: Site of cellulitis: extremity Site of cellulitis of extremity: lower extremity Laterality: left Qualified Code(s): L03.116 - Cellulitis of left lower limb Is this a current diagnosis for this admission?: Yes (5) Dementia Qualifiers: Dementia type: vascular dementia Is this a current diagnosis for this admission?: Yes (6) Type 2 diabetes mellitus Qualifiers: Diabetes mellitus usp insulin use: without continuous churn buttermaker use Diabetes mellitus complication status: without complication Qualified Code(s): E11.9 - Type 2 diabetes mellitus without complications Is this a current diagnosis for this admission?: Yes (7) Difficulty sleeping Is this a current diagnosis for this admission?: Yes - Plan Summary Summary: I had a long discussion with the family at bedside. Based on his decreased ejection fraction, pulmonary hypertension and worsening effusions despite diuretics I do not feel that the patient will have a meaningful recovery. The patient's daughter states that this is not a quality of life that he would like. We did review the fact that over the last several months he has been getting more more shortness of breath with less and less exertion. We discussed being less aggressive with treatment. I explained hospice versus comfort care. I will have palliative care see the patient. Once the family has had a chance to discuss options they will likely make a decision. I should have a decision tomorrow. His overall prognosis is extremely poor. 11/14/2018-I reviewed the episodes of last night with the patient's family. Once again we reviewed the patient's prognosis. He is currently tachypneic with tachycardia. The family is waiting to hear from facilities regarding hospice care. At this time I am going to DC all of his cardiac medications as well as his oxygen and any medications not geared toward comfort. I explained to the family the treatment regimen which will include morphine, lorazepam and acetaminophen. They understand that the goal is comfort and that we will not to anything to prolong his current condition. There will be no attempts at resuscitation. The patient's prognosis is grave. Based on the events of last night and the fact that we will be holding all of his cardiac medications his life expectancy certainly could be within several days. I discussed these care plans with the patient's nurse. We reviewed all of the medication changes. We reviewed the current status and prognosis. The nurse will monitor the patient closely and administer appropriate medications for any pain, agitation or difficulty breathing. - Time Time Spent with patient: 25-34 minutes Total Critical Time (Minutes): 25 Medications reviewed and adjusted accordingly: Yes Anticipated discharge: Hospice
[2018-11-14] MEDS ORDERED: ACETAMINOPHEN 650 MG SUPP.RECT PR PRN (13:56)
[2018-11-14] MEDS ORDERED: MORPHINE SULFATE 10 MG/ML INJ IV PRN (13:57)
[2018-11-14] MEDS: MORPHINE SULFATE 10 MG/ML INJ IV PRN ×2 (16:01→19:53)
[2018-11-14 20:46] VITALS: BP 164/87
[2018-11-15] MEDS: MORPHINE SULFATE 10 MG/ML INJ IV PRN ×2 (00:01→02:19)
[2018-11-15] MEDS: LORAZEPAM INJ 2 MG/1 ML VIAL IV PRN ×2 (00:02→02:19)
--- NOTE | 2018-11-15 03:17 | Death Summary ---
Summary Date : 11/15/18 Time of :: 02:19 Autopsy: No Resuscitation Status: Comfort Measures Only Primary Care Provider: Kiya Bautista - Final Diagnosis (1) CHF exacerbation Is this a current diagnosis for this admission?: Yes (2) Anasarca Is this a current diagnosis for this admission?: Yes Hospital Course:: CAMPOS ALVAREZ was a 88 year old male with a past medical history of atrial fibrillation, congestive heart failure, left leg cellulitis and dementia with delirium. He presented with generalized truncal edema for an unclear duration. In the emergency room he was also found to have 2+ bilateral lower extremity edema with pleural effusions. He was treated with IV diuretics and oral medications with initial modest overall improvement in his clinical status but he refused to take oral medications and his dementia and somnolence increased throughout his hospital course. Family members finally agreed to make him a DO NOT RESUSCITATE comfort measures only patient on 11/14/2018 due to his lack of clinical improvement and grave outlook for the future. Patient with dignity, comfortably in his sleep while in his hospital bed at 2:19 AM on 11/15/2018.
== END 2018-11-15 02:19 | DRG 292 ==
LOC: ER 15:46 → EH 19:36 → 3S 23:10
PROVIDERS: ADMIT Internal Medicine; ATTEND Internal Medicine
DX: I11.0 Hypertensive heart disease with heart failure (principal); F01.51 Vascular dementia, unspecified severity, with behavioral disturbance; F05 Delirium due to known physiological condition; L97.929 Non-pressure chronic ulcer of unspecified part of left lower leg with unspecified severity; L03.116 Cellulitis of left lower limb; I50.43 Acute on chronic combined systolic (congestive) and diastolic (congestive) heart failure; Z51.5 Encounter for palliative care; I48.91 Unspecified atrial fibrillation; I27.20 Pulmonary hypertension, unspecified; Z78.1 Physical restraint status; Z79.02 Long term (current) use of antithrombotics/antiplatelets; I25.2 Old myocardial infarction; Z95.1 Presence of aortocoronary bypass graft; E11.9 Type 2 diabetes mellitus without complications; G47.9 Sleep disorder, unspecified; N50.89 Other specified disorders of the male genital organs; Z79.899 Other long term (current) drug therapy
CPT/HCPCS: 36415; 36600; 51702; 71045; 80048; 80053; 80162; 81001; 82550; 82553; 82803; 82962; 83036; 83735; 83880; 84443; 84484; 85025; 85027; 85610; 87086; 93005; 93010; 94660; 94667; 94799; 99285; C1758; J0360; J0690; J1160; J1644; J1815; J1940; J2060; J2270; J3490; J7060; J7620